=== PATIENT | male | born 1950 | race Caucasian/White ===

== ENCOUNTER 2016-05-13 14:11 | Inpatient (IN) | payer OTHER ==
[~2016-05-13] VITALS: Ht 172.7 cm; Wt 119.8 kg
--- NOTE | 2016-05-13 14:16 | ERA ---
ER Documentation Chief Complaint Date/Time DATE: 05/13/16 TIME: 14:16 Chief Complaint Left-sided weakness HPI The patient is 65-year-old male, presenting to the ER because of acute left- sided weakness happened about 30 minutes prior to arrival. He is unable to provide any history, the history is obtained from the engraver and later the family. He has not been sick in the last couple days. He has history of high blood pressure and asthma, denies any previous surgery, he does not smoke Past medical history: Hypertension, asthma Past surgical history: None ROS All systems reviewed and are negative except as per history of present illness. Medications Home Meds Reported Medications Budesonide-Formoterol Fumarate* (Symbicort*) 160-4.5 Hfa.aer.ad, 2 PUFF INHALATION BID, #1 EACH 05/13/16 Hydrochlorothiazide* (Hydrochlorothiazide*) Unknown Strength Tab, MG PO DAILY, # 30 TAB 05/13/16 Valsartan-Hydrochlorothiazide (Valsartan-HCTZ) 320-25 Mg Tablet, 1 TAB PO DAILY , #30 TAB 05/13/16 Albuterol Sulfate* (Albuterol Sulfate* Neb) 0.083%-3 Ml Neb, 2.5 MG NEB Q3H Y for WHEEZING AND SOB, #30 VIAL 05/13/16 Allergies Allergies: Coded Allergies: No Known Allergy (Unverified , 05/13/16) Physical Exam Vitals Vital Signs Date Time Temp Pulse Resp B/P Pulse Ox O2 Delivery O2 Flow Rate FiO2 05/13/16 16:48 84 18 160/97 99 05/13/16 16:33 79 18 159/99 99 05/13/16 16:18 72 20 145/91 100 05/13/16 16:03 80 24 150/85 100 05/13/16 15:48 81 24 158/90 100 05/13/16 15:33 81 24 181/103 100 05/13/16 15:18 83 24 191/113 100 05/13/16 15:03 77 24 160/124 100 05/13/16 14:57 98.4 84 24 191/113 100 Nasal Cannula 2.0 05/13/16 14:42 98.4 77 24 160/124 98 Nasal Cannula 05/13/16 14:38 15.0 100 05/13/16 14:37 97.8 82 24 150/132 98 05/13/16 14:37 Nasal Cannula 15 Physical Exam Const: No acute distress. Head: Atraumatic. Eyes: Normal Conjunctiva. ENT: Normal External Ears, Nose and Mouth. Neck: Full range of motion. No meningismus. Resp: Clear to auscultation bilaterally. Cardio: Regular rate and rhythm, no murmurs. Abd: Soft, non distended, normal bowel sounds, non tender. Skin: No petechiae or rashes. Back: No midline or flank tenderness. Ext: No cyanosis, or edema. Neur: Left upper and lower extremity 0/5, right upper and right lower extremity 5/5 Psych: Unable to obtain due to his condition Result Diagram: 05/13/16 1415 05/13/16 1415 Results 24 hrs Laboratory Tests Test 05/13/16 14:15 Activated Partial Thromboplast Time 24.9Sec Anion Gap 19 Basophils # 0.010^3/ul Basophils % 0.3% Blood Urea Nitrogen 15mg/dl Calcium Level 9.2mg/dl Carbon Dioxide Level 26mmol/L Chloride Level 105mmol/L Creatinine 0.87mg/dl Eosinophils # 0.210^3/ul Eosinophils % 2.3% Glucose Level 123mg/dl Hematocrit 40.4% Hemoglobin 13.6g/dl Hemoglobin A1c 5.8% INR International Normalized Ratio 0.93 Lymphocytes # 3.410^3/ul Lymphocytes % 32.5% Mean Corpuscular Hemoglobin 31.1pg Mean Corpuscular Hemoglobin Concent 33.6g/dl Mean Corpuscular Volume 92.4fl Mean Platelet Volume 7.9fl Monocytes # 0.810^3/ul Monocytes % 7.9% Neutrophils # 5.910^3/ul Neutrophils % 57.0% Nucleated Red Blood Cells # 0.010^3/ul Nucleated Red Blood Cells % 0.0/100WBC Platelet Count 30654^3/UL Potassium Level 3.5mmol/L Prothrombin Time 12.5Sec Prothrombin Time Ratio 1.0 Red Blood Count 4.3710^6/ul Red Cell Distribution Width 14.2% Sodium Level 146mmol/L Troponin I 0.052ng/ml White Blood Count 10.310^3/ul Current Medications Medications (Trade) Dose Ordered Sig/Mono Route PRN Reason Start Time Stop Time Status Last Admin Dose Admin Alteplase, Recombinant 8.2 mg 8.2 mg BOLUS OVER 1 MIN ONCE IV* 05/13/16 15:00 05/13/16 15:01 DC 05/13/16 15:03 Nicardipine HCl 200 ml @ 50 mls/hr TITRATE IV 05/13/16 15:30 05/13/16 15:54 Nicardipine HCl/ Dextrose (Cardene Iv/D5W) 250 ml @ 50 mls/hr PER PROTOCOL IV 05/13/16 17:00 Atorvastatin Calcium (Lipitor) 40 mg QHS PO 05/14/16 21:00 Acetaminophen (Tylenol Tab) 650 mg Q4H PRN PO Temp greater than 99.6F 05/13/16 16:30 Docusate Sodium (Colace) 100 mg BID PO 05/13/16 21:00 Ondansetron HCl (Zofran Inj) 4 mg Q6H PRN IV NAUSEA AND/OR VOMITING 05/13/16 16:30 Acetaminophen (Tylenol Tab) 650 mg Q6H PRN PO PAIN LEVEL 1-3 OR FEVER 05/13/16 16:30 Docusate Sodium (Colace) 100 mg Q12H PRN PO CONSTIPATION 05/13/16 16:30 Magnesium Hydroxide (Milk Of Mag) 30 ml DAILY PRN PO CONSTIPATION 05/13/16 16:30 Bisacodyl (Dulcolax Supp) 10 mg DAILY PRN OK CONSTIPATION 05/13/16 16:30 Famotidine (Pepcid Iv) 20 mg Q12 IV 05/13/16 21:00 Albuterol (Proventil 0.083% (Neb)) 2.5 mg Q4H RESP THERAPY PRN NEB WHEEZING AND SOB 05/13/16 17:00 Salmeterol Xinafoate/ Fluticasone (Advair 250/50 Diskus) 1 inh BID INH 05/13/16 21:00 Procedures/MDM EKG: Read by emergency physician Rate/Rhythm: Normal Sinus Rhythm 78 beats per min QRS, ST, T-waves: No ST elevation, no T wave inversion, PAC, LAE Impression: Abnormal EKG [place] [id number] Radiology Main Line: [phone] DIAGNOSTIC IMAGING REPORT Patient: MARGRETSMITA EVANGELISTAPaulino : 1950 Age: 65 Sex: M MR #: [id number] DOS: 05/13/16 1414 Ordering MD: ROBERT DIAZ MD Location: E/R Room/Bed: PROCEDURE: XR Chest. CLINICAL INDICATION: Stroke TECHNIQUE: Single AP portable chest COMPARISON: None. FINDINGS: And cardiomegaly. Mild vascular congestion. No pleural effusion or focal consolidation. Catheter tubing overlies the epigastric region. The lungs are clear without pleural effusion or focal consolidation. No pneumothorax. The osseous structures and soft tissues are unremarkable. IMPRESSION: 1. Cardiomegaly. Mild vascular congestion. RPTAT:AAJJ Kenneth Coleman Physician Date Time Electronically viewed and signed by Kenneth Coleman Physician on 05/13/2016 15:12 KIMMY/ CC: ROBERT DIAZ MD [place] [id number] Radiology Main Line: [phone] DIAGNOSTIC IMAGING REPORT Patient: LEVI MILLIGAN : 1950 Age: 65 Sex: M MR #: [id number] DOS: 05/13/16 1414 Ordering MD: ROBERT DIAZ MD Location: E/R Room/Bed: PROCEDURE: CT brain without contrast CLINICAL INDICATION: Code stroke, left-sided weakness TECHNIQUE: CT of the brain without contrast performed on a multidetector CT scanner, with multiplanar reformats. One or more of the following dose reduction techniques were used: Automated exposure control, adjustment in mA and / or kV according to patient size, use of iterative reconstructive technique. CTDIvol = 39 mGy; DLP = 720 mGy-cm. COMPARISON: None available FINDINGS: There is subtle hyperdensity at the proximal right middle cerebral artery in the region of the distal M1 segment/bifurcation raising the possibility of thrombus. No acute intracranial hemorrhage is identified. No extra-axial fluid collection is seen. There is no mass effect. No midline shift is identified. Ventricles and sulci are mildly enlarged compatible with volume loss. There are mild areas of hypodensity in the periventricular - deep white matter which are nonspecific but suggestive of chronic small vessel ischemic changes. Moraes-white differentiation is grossly preserved. Osseous structures are unremarkable. Mastoid air cells and imaged paranasal sinuses grossly clear. IMPRESSION: 1. Subtle hyperdensity at the proximal right MCA at the M1/bifurcation region raising possibility of thrombus. Further assessed with CT angiography is recommended. Also, follow-up MRI of the brain is advised. 2. No acute intracranial hemorrhage. 3. Mild volume loss, and chronic small vessel ischemic changes. Results called to Dr. DIAZ at 02:32 p.m., 05/13/2016. RPTAT: VV .Kip Schmidt MD, Date Time Electronically viewed and signed by .Kip Schmidt MD, on 05/13/2016 14:37 .O/ CC: ROBERT DIAZ MD Consultation: I discussed the patient with the on-call stroke neurologist Dr Chen who recommended TPA after evaluation. TPA was given immediately MEDICAL MAKING DECISION: The patient is a 65-year-old male, presenting with acute stroke with left hemiparalysis, status post TPA. He is improving in the ER. I have ordered a CTA of the brain and neck and the admitting physician Dr López would follow the result Critical Care: Time: 35 minutes excluding all billable procedures. Treatments/Evaluations: Close monitoring and treatment of unstable vital signs, cardiorespiratory, and neurologic status, while maintaining tight balance of fluid, respiratory, and cardiac interventions. Departure Diagnosis: Primary Impression: Acute thrombotic stroke Condition: Stable Comments I discussed the findings with the patient. I discussed the patient with his physician Dr. López at 3:45 pm who was made aware of the lab, the treatment, the patient condition, the pending CTA. She evaluated the patient in the ER. The patient is admitted to ICU. ROBERT DIAZ MD May 13, 2016 14:16
[2016-05-13 14:24] LABS: BASOPHILS % 0.3 % (0.0-2.0); EOSINOPHILS # 0.2 10^3/ul (0.0-0.5); EOSINOPHILS % 2.3 % (0.0-7.0); HEMATOCRIT 40.4 % (42.0-52.0); HEMOGLOBIN 13.6 g/dl (14.0-18.0); LYMPHOCYTES # 3.4 10^3/ul (0.8-2.9); LYMPHOCYTES % 32.5 % (15.0-51.0); MEAN CORPUSCULAR HEMOGLOBIN 31.1 pg (29.0-33.0); MEAN CORPUSCULAR HGB CONC 33.6 g/dl (32.0-37.0); MEAN CORPUSCULAR VOLUME 92.4 fl (82.0-101.0); MEAN PLATELET VOLUME 7.9 fl (7.4-10.4); MONOCYTE # 0.8 10^3/ul (0.3-0.9); MONOCYTES % 7.9 % (0.0-11.0); NEUTROPHIL # 5.9 10^3/ul (1.6-7.5); PLATELET COUNT 287 10^3/UL (140-440); RED BLOOD COUNT 4.37 10^6/ul (4.70-6.10); RED CELL DISTRIBUTION WIDTH 14.2 % (11.5-14.5); UNCORRECTED WBC 10.3 10^3/ul (4.8-10.8); WHITE BLOOD COUNT 10.3 10^3/ul (4.8-10.8)
[2016-05-13 14:26] LABS: CONDITION 1
[2016-05-13 14:34] LABS: POTASSIUM 3.5 mmol/L (3.5-5.1)
[2016-05-13 14:36] LABS: CREATININE 0.87 mg/dl (0.61-1.24)
[2016-05-13 14:37] VITALS: Ht 172.7 cm; Wt 119.8 kg
[2016-05-13 14:37] LABS: CALCIUM 9.2 mg/dl (8.4-10.2)
--- NOTE | 2016-05-13 14:37 | RADRPT ---
PROCEDURE: CT brain without contrast CLINICAL INDICATION: Code stroke, left-sided weakness TECHNIQUE: CT of the brain without contrast performed on a multidetector CT scanner, with multiplan ar reformats. One or more of the following dose reduction techniques were used: Automated exposure control, adjustment in mA and / or kV according to patient size, use of iterative reconstructive víctor hnique. CTDIvol = 39 mGy; DLP = 720 mGy-cm. COMPARISON: None available FINDINGS: There is subtle hyperdensity at the proximal right middle cerebral artery in the region of the dista l M1 segment/bifurcation raising the possibility of thrombus. No acute intracranial hemorrhage is i dentified. No extra-axial fluid collection is seen. There is no mass effect. No midline shift is identified. Ventricles and sulci are mildly enlarged compatible with volume loss. There are mild areas of hypodensity in the periventricular - deep white matter which are nonspecific but suggestive of chronic small vessel ischemic changes. Moraes-white differentiation is grossly pre served. Osseous structures are unremarkable. Mastoid air cells and imaged paranasal sinuses grossly clear. IMPRESSION: 1. Subtle hyperdensity at the proximal right MCA at the M1/bifurcation region raising possibility o f thrombus. Further assessed with CT angiography is recommended. Also, follow-up MRI of the brain is advised. 2. No acute intracranial hemorrhage. 3. Mild volume loss, and chronic small vessel ischemic changes. Results called to Dr. DIAZ at 02:32 p.m., 05/13/2016. RPTAT: VV .Kip Schmidt MD, MD Date Time Electronically viewed and signed by .Kip Schmidt MD, MD on 05/13/2016 14:37 .O/
[2016-05-13 14:43] LABS: INR 0.93; PROTIME 12.5 Sec (12.2-14.2)
[2016-05-13 14:44] LABS: PARTIAL THROMBOPLASTIN TIME 24.9 Sec (25.0-35.0)
[2016-05-13 14:48] LABS: TROPONIN-I 0.052 ng/ml (0.00-0.12)
[2016-05-13] MEDS ORDERED: ALTEPLASE (tPA) 1 MG/ML BOLUS SYG IV* ONE (15:00)
--- NOTE | 2016-05-13 15:13 | RADRPT ---
PROCEDURE: XR Chest. CLINICAL INDICATION: Stroke TECHNIQUE: Single AP portable chest COMPARISON: None. FINDINGS: And cardiomegaly. Mild vascular congestion. No pleural effusion or focal consolidation. Catheter tubing overlies the epigastric region. The lungs are clear without pleural effusion or focal consol idation. No pneumothorax. The osseous structures and soft tissues are unremarkable. IMPRESSION: 1. Cardiomegaly. Mild vascular congestion. RPTAT:AAJJ Physician Saulo Date Time Electronically viewed and signed by Physician Saulo on 05/13/2016 15:12 KIMMY/
[2016-05-13] MEDS ORDERED: niCARdipine-D5W 0.1MG/ML DRIP 200 ML IV SCH (15:30)
[2016-05-13] MEDS ORDERED: ALBU2.5V3 NEB (15:51)
[2016-05-13] MEDS ORDERED: HYD25 PO (16:01)
[2016-05-13] MEDS ORDERED: VALS1TAB82 PO (16:01)
[2016-05-13] MEDS ORDERED: BUDE6HFA INHALATION (16:02)
[2016-05-13] MEDS ORDERED: DOCUSATE SODIUM 100 MG CAP PO PRN (16:30)
[2016-05-13] MEDS ORDERED: MAGNESIUM HYDROXIDE 30ML CUP PO PRN (16:30)
[2016-05-13] MEDS ORDERED: ONDANSETRON 4 MG INJ IV PRN (16:30)
[2016-05-13] MEDS ORDERED: ALBUTEROL 0.083% (NEB) 2.5 MG/3 ML AMP NEB PRN (17:00)
--- NOTE | 2016-05-13 17:47 | HP ---
DATE OF ADMISSION: 05/13/2016 PRIMARY CARE PHYSICIAN: Unknown. CHIEF COMPLAINT ON ADMISSION: Altered level of consciousness. HISTORY OF PRESENT ILLNESS: This is a 65-year-old male with reported history of hypertension, prima rily Turkish speaking, who was brought into the emergency department with reported severe lethargy, altered level of consciousness and according to the ER staff had deep left hemiparesis. Upon arriv al, the patient was extremely lethargic. He was aphasic with severe left hemiparesis. His symptoms started an hour and a half prior to presentation. Therefore, the patient was a stroke code and a T PA candidate. He did get TPA. Post TPA, according to the staff again who was able to compare, the patient is more awake even if still significantly lethargic. He is able to move a little bit his le ft side but still with deep hemiparesis. He is now able to utter some words. He does have a right facial droop, but it seems to be improved. He seems to be still having difficulty waking up, linh r. He speaks primarily Turkish. Family is at bedside. According to the family, the only reported medical history is hypertension. They deny any previous history of cerebrovascular accident or cor onary artery disease. He was told he had a slightly elevated cholesterol but did not take any medic ations. No history of diabetes mellitus. ALLERGIES: NO KNOWN ALLERGIES. PAST MEDICAL HISTORY: Hypertension, asthma. PAST SURGICAL HISTORY: None. SOCIAL HISTORY: The patient lives with family. He does not smoke. He drinks occasionally, maybe 1 or 2 drinks a week. REVIEW OF SYSTEMS: Unable to obtain from patient. OUTPATIENT MEDICATIONS: 1. Valsartan/hydrochlorothiazide 320/25 one tablet p.o. daily. 2. Symbicort 2 puffs inhaled twice a day. 3. Albuterol nebulizers q.3 hours p.r.n. PHYSICAL EXAMINATION: VITAL SIGNS: Temperature is 98.4, heart rate of 87, respiratory rate 24, blood pressure 158/90. Th e patient is saturating 100% on 2 L nasal cannula. GENERAL: He is significantly lethargic but arousable. He does not seem to be oriented, having diff iculty following commands but spontaneously moving his right side and his head from one side to anot her. Even in Turkish, he seems to be having difficulty following commands. He is otherwise not in acute distress. HEENT: Pupils are equally round and reactive to light. Extraocular muscles are intact. Anicteric sclerae. NECK: No JVD, no thyromegaly noted. CRANIAL NERVES: Exam is very limited. Again, the patient is not very cooperative. HEART: Regular rate and rhythm. No murmur, rubs or gallops. LUNGS: Clear to auscultation bilaterally. ABDOMEN: Soft, nontender, nondistended. Bowel sounds are present. EXTREMITIES: No edema, clubbing or cyanosis. NEUROLOGIC: Again, the patient does have left hemiparesis which is fairly deep. He is having mild to moderate expressive aphasia and possibly receptive aphasia also, and he does have a right facial droop. LABORATORY DATA: White blood cell count 10.3, hemoglobin 13.6, hematocrit 40.7, platelet count of 2 87. Chemistry with a sodium of 146, potassium 3.5, chloride 105, bicarbonate 26, BUN 15, creatinine 0.87, glucose of 123. Hemoglobin A1c 5.8. Calcium 9.2. Troponin 0.052. INR 0.93, PT 12.5, PTT 2 4.9. ELECTROCARDIOGRAM: Normal sinus rhythm. No acute ST or T-wave abnormalities. RADIOLOGICAL DATA: 1. Chest x-ray shows cardiomegaly with mild vascular congestion. 2. CAT scan of the brain without contrast shows subtle hyperdensity in the left proximal right MCA at the M1 bifurcation, raising possibility of a thrombus. No acute intracranial hemorrhage. Mild v olume loss. ASSESSMENT AND PLAN: This is a 65-year-old male with: 1. Acute cerebrovascular accident with severe left hemiparesis, also aphasia. Still concern regard ing his airway due to his lethargy. Therefore, he will be admitted to the ICU post TPA, q.1 neuro c hecks, close monitoring of his respiratory status and airway. His systolic blood pressure upon arri marcos was in the 180s and currently down to 150s. Permissive hypertension of some sort for now. . ____ from Neurology has been consulted. CT angiogram of the head and neck and MRI of the brain are pending. A 2D echocardiogram also has been ordered. Hemoglobin A1c is within normal. Fasting lipi d panel is ordered for the morning. He will be started on statin therapy. He is currently n.p.o. u ntil speech evaluation. 2. Hypertension. For now, will allow for permissive hypertension, holding all oral medications. 3. Asthma. Resume Symbicort and nebulizer treatments as needed. 4. Prophylaxis. For now, he is status post TPA. Will have him on Pepcid for GI prophylaxis. DISPOSITION: Admit to ICU with very close monitoring of both neurological status and respiratory st atus. Neurology will be following up CT angiogram head and neck and MRI brain pending. Dictated By: NICO GRIER/ANGELIQUE Conf#: [id number] DID#: [id number]
[2016-05-13] MEDS ORDERED: IOHEXOL 100 ML ONE (18:24)
[2016-05-13] MEDS ORDERED: SOD CHLORIDE 0.9% 100 ML ONE (18:24)
[2016-05-13] MEDS: LORAZEPAM 2 MG INJ IV ONE ×2 (19:10→22:04)
--- NOTE | 2016-05-13 20:29 | RADRPT ---
PROCEDURE: MR Brain without contrast. CLINICAL INDICATION: CVA. TECHNIQUE: An MRI of the brain was performed on a 1.5 candie scanner utilizing the following sequen garland: Sagittal T1 weighted, axial T2 weighted, axial FLAIR, coronal GRE, and axial diffusion weighted with ADC mapping. COMPARISON: None FINDINGS: Restricted diffusion involving the right castañeda radiata, basal ganglia, and external capsule compati ble with acute/early subacute ischemic infarction. Evaluation of diffusion weighted sequence is thomas ited due to marked patient motion and image degradation. There is no evidence of intracranial hemorrhage, mass effect, or midline shift. No extra-axial flu id collections are seen. No hypointense signal abnormalities are seen on the GRE images to suggest the presence of blood degr adation products. The ventricles and subarachnoid spaces are prominent compatible with age-related atrophy. The seg[place] white differentiation is grossly well preserved. Small left maxillary sinus mucous retention cyst o r polyp. The posterior fossa contents, brainstem, seventh - eighth cranial nerve complexes, pituitary axis, o rbits, paranasal sinuses, and mastoid air cells are unremarkable. Normal flow voids are visible in the proximal intracranial arteries and dural sinuses, indicating pa tency. IMPRESSION: 1. Acute/early subacute ischemic infarction involving the right basal ganglia and castañeda radiata. D etailed evaluation is limited due to extensive configuration secondary to patient motion on all sequ ences. 2. No intracranial hemorrhage, mass effect, or shift. RPTAT:AAJJ Physician Saulo Date Time Electronically viewed and signed by Physician Saulo on 05/13/2016 20:28 KIMMY/
--- NOTE | 2016-05-13 20:42 | RADRPT ---
PROCEDURE: CTA Neck. CLINICAL INDICATION: CVA TECHNIQUE: The study was performed utilizing a multidetector CT scanner. Direct spiral 1 mm axial sections were obtained through the neck with the use of 100ml Omnipaque 350 intravenous contrast m aterial. Coronal and sagittal as well as maximal intensity projection reformations were obtained.CT DI: 19.13 mGy and DLP: 781.39 mGy.cm.One or more of the following dose reduction techniques were uti lized: Automated exposure control, adjustment of the mA and/or kV according to patient size, use of iterative reconstruction technique. COMPARISON: No prior studies are available for comparison. FINDINGS: Aortic arch: The aortic arch is normal in caliber. Atherosclerotic calcification of the aortic arch. Normal appea ute of the origin of the great vessels. Common carotid arteries: Mild tortuosity of the proximal common carotid arteries bilaterally. Internal carotid arteries: ROGELIO/ECA: Normal appearance of the internal carotid artery bulb. The distal internal carotid artery is patent and normal in caliber. Severe tortuosity of the mid extracranial internal carotid artery with sigmo id configuration No evidence of hemodynamically significant stenosis. External carotid artery and i ts branches are normal patent and normal in caliber. LICA/ECA : Normal appearance of the internal carotid artery bulb. The distal internal carotid artery is patent and normal in caliber. No evidence of hemodynamically significant stenosis. Marked tortuosity of the mid extracranial internal carotid artery. There is medial retropharyngeal course of the proxima l right internal carotid artery and old. This deforms the posterior lateral aspect of the hypophary nx. This should be noted prior to any surgical procedure in this region. External carotid artery an d its branches are normal patent and normal in caliber. Vertebral arteries: The vertebral arteries are patent and normal in caliber with dominant right vertebral artery. IMPRESSION: No evidence of hemodynamically significant stenosis. Marked tortuosity of the internal carotid henok alexandre bilaterally left greater than right as described in detail above. RPTAT:AAJJ Physician Saulo Date Time Electronically viewed and signed by Physician Saulo on 05/13/2016 20:41 KIMMY/
--- NOTE | 2016-05-13 20:46 | STROKE ---
Date/Time of Note Date/Time of Note DATE: 05/13/16 TIME: 20:40 Patient Information General Patient location: emergency Arrival Date Age 65 Gender male Weight 90.91 kg Vital Signs Vital Signs Vital Signs Date Time Temp Pulse Resp B/P Pulse Ox O2 Delivery O2 Flow Rate FiO2 05/13/16 18:18 80 18 136/100 99 05/13/16 14:57 98.4 Nasal Cannula 2.0 05/13/16 14:38 100 Patient History Current Medications Allergies: Coded Allergies: No Known Allergy (Unverified , 05/13/16) Labs Hematology Labs Hematology Test 05/13/16 14:15 Basophils # 0.010^3/ul (0.0-0.1) Basophils % 0.3% (0.0-2.0) Eosinophils # 0.210^3/ul (0.0-0.5) Eosinophils % 2.3% (0.0-7.0) Hematocrit 40.4% (42.0-52.0) Hemoglobin 13.6g/dl (14.0-18.0) Lymphocytes # 3.410^3/ul (0.8-2.9) Lymphocytes % 32.5% (15.0-51.0) Mean Corpuscular Hemoglobin 31.1pg (29.0-33.0) Mean Corpuscular Hemoglobin Concent 33.6g/dl (32.0-37.0) Mean Corpuscular Volume 92.4fl (82.0-101.0) Mean Platelet Volume 7.9fl (7.4-10.4) Monocytes # 0.810^3/ul (0.3-0.9) Monocytes % 7.9% (0.0-11.0) Neutrophils # 5.910^3/ul (1.6-7.5) Neutrophils % 57.0% (39.0-77.0) Nucleated Red Blood Cells # 0.010^3/ul (0.0-0.0) Nucleated Red Blood Cells % 0.0/100WBC (0.0-0.0) Platelet Count 94171^3/UL (140-440) Red Blood Count 4.3710^6/ul (4.70-6.10) Red Cell Distribution Width 14.2% (11.5-14.5) White Blood Count 10.310^3/ul (4.8-10.8) Chemistry Labs Chemistry Test 05/13/16 14:15 Anion Gap 19 (8-16) Blood Urea Nitrogen 15mg/dl (7-20) Calcium Level 9.2mg/dl (8.4-10.2) Carbon Dioxide Level 26mmol/L (21-31) Chloride Level 105mmol/L (97-110) Creatinine 0.87mg/dl (0.61-1.24) Glucose Level 123mg/dl (70-220) Hemoglobin A1c 5.8% (0-5.9) Potassium Level 3.5mmol/L (3.5-5.1) Sodium Level 146mmol/L (135-144) Troponin I 0.052ng/ml (0.00-0.12) Coagulation Labs: Coagulation Test 05/13/16 14:15 Activated Partial Thromboplast Time 24.9Sec (25.0-35.0) INR International Normalized Ratio 0.93 Prothrombin Time 12.5Sec (12.2-14.2) Prothrombin Time Ratio 1.0 History & Physical Patient History Notes Pt Hx Reviewed History of Present Illness 65yo M presents with acute onset left sided weakness since 1:30pm. Review of Systems All Other Systems: Reviewed and Negative (unable to obtain due to patient's clinical condition) NIH Stroke Scale NIH Stroke Scale 1A - Level of Conciousness: 2 - Not Alert w [id number] LOC Questions: 2 - Answers no [id number] - LOC Commands: 2 - Performs neither task2 - Best Gaze: 1 - Partial Gaze palsy3 - Visual: 2 - Complete Hemianopia4 - Facial Palsy: 2 - Complete [id number] - Motor Arm - Left: 4 - No ribbsfjp6H - Motor Arm - Right: 2 - Some effort to xstsvcs0P - Motor Leg - Left: 4 - No udvjaltv1C - Motor Leg - Right: 3 - No effort to gravity7 - Limb Ataxia: 0 - Absent8 - Sensory: 0 - Normal9 - Best Language: 0 - No aphasia or normalDysarthria: 0 - NormalTotal Score: 24 Date/Time Recorded DATE: 05/13/16 TIME: 20:40 Submitted By Beth Jeffers t-PA Imaging Review Imaging Reviewed: Yes Date/Time Imaging Reviewed DATE: 05/13/16 TIME: 20:40 Imaging Findings No acute changes t-PA Administration Recommendation: Yes Weight 90.91 kg Recommedation submitted by Beth Jeffers Recommendations Impression Diagnosis ischemic stroke of the right middle cerebral artery Recommendation 65yo M presents with acute onset left sided weakness. Neurological exam is notable for left face arm and leg weakness, left homonymous hemianopsia, and patient not answering questions. I believe the patient has an acute ischemic stroke of the right middle cerebral artery. I reviewed the risks and benefits of IV TPA in detail with the patient's son and he is agreeable to my recommendation for IV TPA. I also recommended a stat CTA of the head and neck to determine if the patient is a neurointerventional candidate. I recommend further workup to include MRI Brain without gadolinium and transthoracic echocardiogram. I recommend post-TPA orders be followed. BETH JEFFERS May 13, 2016 20:45
--- NOTE | 2016-05-13 20:50 | RADRPT ---
PROCEDURE: CTA Brain. CLINICAL INDICATION: CVA TECHNIQUE: The study was performed utilizing a multidetector CT scanner. Direct spiral 0.65 mm axi al sections were obtained through the intracranial vasculature with the use of 100 cc of Onipaque 35 0 nonionic intravenous contrast material. Coronal and sagittal MPRs as well as maximal intensity pr ojection reformations were obtained. 3D images were also made. The CTDIvol is 19.13 mGy and the DLP is 781.39 mGycm. COMPARISON: No prior studies are available for comparison. FINDINGS: The internal carotid arteries are patent and normal in caliber. There is occlusion of the right mid M1 segment of the middle cerebral artery there is nonvisualizati on of the temporal, and opercular branches. The anterior cerebral arteries, anterior communicating artery, and left middle cerebral artery and its branches are patent. The basilar artery is patent with dominant right vertebral artery flow left vertebral artery is mild ly hypoplastic but patent. origin right posterior cerebral artery The vertebral arteries, ba silar artery, superior cerebellar arteries, and posterior cerebral arteries are all normal in appear ance. No aneurysm is identified. No vascular malformation is seen. IMPRESSION: 1. Occlusion of the mid M1 segment of the right middle cerebral artery with nonvisualization of rig ht remaining distal MCA branches compatible with a right MCA arterial occlusion and infarct. 2. The remaining vessels of the [place] of [place] are patent and normal in caliber. RPTAT:AAJJ Physician Saulo Date Time Electronically viewed and signed by Physician Saulo on 05/13/2016 20:50 KIMMY/
[2016-05-13 20:53] VITALS: TEMP 98
[2016-05-13] MEDS: DOCUSATE SODIUM 100 MG CAP PO SCH (21:00)
[2016-05-13] MEDS: SALMETEROL/FLUTICASONE 250/50 INHA INH SCH (21:00)
[2016-05-13] MEDS: FAMOTIDINE 20 MG INJ IV SCH (21:00)
[2016-05-13 23:15] VITALS: BP 122/80; PULSE 96; RESP 23
[2016-05-13 23:18] VITALS: PULSE 83
[2016-05-13] MEDS ORDERED: niCARdipine-D5W 0.1MG/ML DRIP 200 ML ONE (23:22)
[2016-05-13 23:30] VITALS: PULSE 102; RESP 22
[2016-05-13 23:45] VITALS: PULSE 82; RESP 19
[2016-05-14] VITALS (94 sets, daily range): BP systolic 94–170; BP diastolic 56–107; PULSE 71–157; RESP 6–39
[2016-05-14 05:23] LABS: BASOPHILS % 0.2 % (0.0-2.0); EOSINOPHILS % 0.3 % (0.0-7.0); HEMATOCRIT 41.5 % (42.0-52.0); HEMOGLOBIN 13.8 g/dl (14.0-18.0); LYMPHOCYTES # 1.3 10^3/ul (0.8-2.9); LYMPHOCYTES % 11.6 % (15.0-51.0); MEAN CORPUSCULAR HEMOGLOBIN 31.1 pg (29.0-33.0); MEAN CORPUSCULAR HGB CONC 33.3 g/dl (32.0-37.0); MEAN CORPUSCULAR VOLUME 93.2 fl (82.0-101.0); MEAN PLATELET VOLUME 7.7 fl (7.4-10.4); MONOCYTE # 0.6 10^3/ul (0.3-0.9); MONOCYTES % 5.9 % (0.0-11.0); NEUTROPHIL # 8.9 10^3/ul (1.6-7.5); PLATELET COUNT 264 10^3/UL (140-440); RED BLOOD COUNT 4.45 10^6/ul (4.70-6.10); RED CELL DISTRIBUTION WIDTH 14.3 % (11.5-14.5); UNCORRECTED WBC 10.9 10^3/ul (4.8-10.8); WHITE BLOOD COUNT 10.9 10^3/ul (4.8-10.8)
[2016-05-14 05:26] LABS: CONDITION 1
[2016-05-14 05:53] LABS: POTASSIUM 3.9 mmol/L (3.5-5.1)
[2016-05-14 05:55] LABS: CREATININE 0.64 mg/dl (0.61-1.24); PHOSPHORUS 2.4 mg/dl (2.5-4.9)
[2016-05-14 05:56] LABS: CALCIUM 8.9 mg/dl (8.4-10.2); CHOL/HDL RATIO 5.3 RATIO; MAGNESIUM 1.8 mg/dl (1.7-2.5)
--- NOTE | 2016-05-14 07:57 | CONS ---
Date/Time of Note Date/Time of Note DATE: 05/14/16 TIME: 07:51 Assessment/Plan Assessment/Plan Additional Assessment/Plan Chest x-ray was reviewed from yesterday which is showing cardiomegaly and evidence of mild pulmonary edema. CT head and MRI of the brain findings are consistent with infarct involving right middle cerebral artery distribution. No bleed seen. Next Assessment recommendations; next 1. Patient admitted with acute CVA status post TPA. 2. History of hypertension. 3. History of asthma which is currently well controlled. 4. Patient exhibiting poor mental status. Continue current treatment for now patient may need another imaging of the brain preferably CT scan of head however I will defer that to the treating neurologist. I did have a detailed discussion the patient's family at bedside and answered all their questions. Consultation Date/Type/Reason Admit Date/Time May 13, 2016 at 16:42 Date of Consultation: May 14, 2016 Type of Consultation: Pulmonary/critical Reason for Consultation Patient admitted for acute CVA. Received TPA. Pulmonary critical care consultation obtained for evaluation of critical illness. History of present illness; patient is a 64-year-old [place] male who was brought into the emergency room yesterday with acute onset of left-sided weakness and slurred speech. Imaging workup was initiated including a CT of the head which was consistent with Right MCA CVA .Code stroke was called and the patient received TPA with some improvement in movement involving the left side of the body. Patient however continues to exhibit poor mental status and is still quite lethargic but able to move his left side spontaneously. Currently the patient follows minimal commands like eye opening on significant prompting. According to the patient's family, the symptoms happened acutely yesterday afternoon. There is no prior history of any CVA. Past medical history; next 1. Asthma 2. Hypertension 3. Nausea of any coronary artery, disease any surgeries. Medications; were reviewed. Allergies; none Social history; no stools alcohol tobacco or drug abuse. Family history; patient is , has 3 children. There is a history of hypertension in the family. 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 Review of systems; currently unable to be obtained. General examination; middle aged man, arousable but then dozes off to sleep. Speech is slurred. Social History Smoking Status: Unknown if ever smoked Exam/Review of Systems Vital Signs Vitals Vital Signs Date Time Temp Pulse Resp B/P Pulse Ox O2 Delivery O2 Flow Rate FiO2 05/14/16 06:15 85 17 145/87 96 Mechanical Ventilator 05/14/16 04:15 2.0 05/14/16 04:00 98.4 05/13/16 14:38 100 Intake and Output 05/13/16 05/13/16 05/14/16 15:00 23:00 07:00 Intake Total 450 ml Balance 450 ml Exam H EENT examination; supple neck, no JVD. No lymphadenopathy. Pupils are midsize and reactive to light. No thyromegaly. No lymphadenopathy. No neck bruits. Chest examination; clear to auscultation bilaterally. S1-S2 audible, no murmurs. Regular rhythm. Abdomen examination; soft, nondistended, no organomegaly. Umbilicus is inverted. There is no scrotal or penile edema. No scars visualized. Extremity examination; no peripheral edema. Pulses 2+ bilaterally. 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 Does not follow commands. Results Result Diagram: 05/14/16 0455 05/14/16 0455 Results 24 hrs Laboratory Tests Test 05/13/16 14:15 05/14/16 04:55 Activated Partial Thromboplast Time 24.9 L Anion Gap 19 H 16 Basophils # 0.0 0.0 Basophils % 0.3 0.2 Blood Urea Nitrogen 15 12 Calcium Level 9.2 8.9 Carbon Dioxide Level 26 27 Chloride Level 105 104 Creatinine 0.87 0.64 Eosinophils # 0.2 0.0 Eosinophils % 2.3 0.3 Glucose Level 123 138 Hematocrit 40.4 L 41.5 L Hemoglobin 13.6 L 13.8 L Hemoglobin A1c 5.8 INR International Normalized Ratio 0.93 Lymphocytes # 3.4 H 1.3 Lymphocytes % 32.5 11.6 L Mean Corpuscular Hemoglobin 31.1 31.1 Mean Corpuscular Hemoglobin Concent 33.6 33.3 Mean Corpuscular Volume 92.4 93.2 Mean Platelet Volume 7.9 7.7 Monocytes # 0.8 0.6 Monocytes % 7.9 5.9 Neutrophils # 5.9 8.9 H Neutrophils % 57.0 82.0 H Nucleated Red Blood Cells # 0.0 0.0 Nucleated Red Blood Cells % 0.0 0.0 Platelet Count 287 264 Potassium Level 3.5 3.9 Prothrombin Time 12.5 Prothrombin Time Ratio 1.0 Red Blood Count 4.37 L 4.45 L Red Cell Distribution Width 14.2 14.3 Sodium Level 146 H 143 Troponin I 0.052 White Blood Count 10.3 10.9 H Cholesterol Level 236 H Cholesterol/HDL Ratio 5.3 HDL Cholesterol 44 LDL Cholesterol, Calculated 172 Magnesium Level 1.8 Phosphorus Level 2.4 L Triglycerides Level 98 Medications Medications Current Medications Atorvastatin Calcium (Lipitor) 40 mg QHS PO ; Start 05/14/16 at 21:00 Acetaminophen (Tylenol Tab) 650 mg Q4H PRN PO Temp greater than 99.6F; Start at 16:30 Docusate Sodium (Colace) 100 mg BID PO ; Start 05/13/16 at 21:00 Ondansetron HCl (Zofran Inj) 4 mg Q6H PRN IV NAUSEA AND/OR VOMITING; Start at 16:30 Acetaminophen (Tylenol Tab) 650 mg Q6H PRN PO PAIN LEVEL 1-3 OR FEVER; Start at 16:30 Docusate Sodium (Colace) 100 mg Q12H PRN PO CONSTIPATION; Start 05/13/16 at 16: 30 Magnesium Hydroxide (Milk Of Mag) 30 ml DAILY PRN PO CONSTIPATION; Start at 16:30 Bisacodyl (Dulcolax Supp) 10 mg DAILY PRN [place] CONSTIPATION; Start 05/13/16 at 16 :30 Famotidine (Pepcid Iv) 20 mg Q12 IV ; Start 05/13/16 at 21:00 Salmeterol Xinafoate/ Fluticasone (Advair 250/50 Diskus) 1 inh BID INH ; Start 05/13/16 at 21:00 AKHIL WILSON May 14, 2016 07:57
--- NOTE | 2016-05-14 08:22 | PN ---
Date/Time of Note Date/Time of Note DATE: 05/14/16 TIME: 08:21 Assessment/Plan VTE Prophylaxis VTE Prophylaxis Intervention: SCD's Lines/Catheters IV Catheter Type (from [facility]): Peripheral IV Urinary Cath still in place: No Assessment/Plan Assessment/Plan 65-year-old male with: 1. 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 MRI brain confirming Right MCA territory CVA CTA head with occlusion of the mid M1 segment of the right middle cerebral artery with nonvisualization of right remaining distal MCA branches Protecting his airway well BP stable CTA neck wnl Start ASA when OK with Neurology, repeat CT head pending today Continue statin therapy. PT/OT/ST eval when ok with Neurology. 2. Hypertension. For now, will allow for permissive hypertension, holding all oral medications. 3. Asthma. Continue inhaler and nebulizers prn. Prophylaxis. S/p TPA. Will have him on Pepcid for GI prophylaxis. DISPOSITION: Monitor in ICU with very close monitoring of both neurological status and respiratory status. Neurology follow up pending, will f/u further recommendations. Subjective 24 Hr Interval Summary Free Text/Dictation Patient still lethargic but easily more awake and per family dysarthria improving, still with left hemiparesis and facial droop No arrhythmias overmight VSS and afebrile Exam/Review of Systems Vital Signs Vitals Vital Signs Date Time Temp Pulse Resp B/P Pulse Ox O2 Delivery O2 Flow Rate FiO2 05/14/16 06:15 85 17 145/87 96 Mechanical Ventilator 05/14/16 04:15 2.0 05/14/16 04:00 98.4 05/13/16 14:38 100 Intake and Output 05/13/16 05/13/16 05/14/16 15:00 23:00 07:00 Intake Total 450 ml Balance 450 ml Exam Constitutional: other (lethargic, arousable ) ENMT: other (right facial drrop ) Respiratory: clear to auscultation, normal air movement Cardiovascular: regular rate and rhythm Gastrointestinal: non-tender, soft Neurological: focal weakness (lef hemiparesis and right facial droop), lethargic Results Result Diagram: 05/14/16 0455 05/14/16 0455 Results 24 hrs Laboratory Tests Test 05/13/16 14:15 05/14/16 04:55 Activated Partial Thromboplast Time 24.9 L Anion Gap 19 H 16 Basophils # 0.0 0.0 Basophils % 0.3 0.2 Blood Urea Nitrogen 15 12 Calcium Level 9.2 8.9 Carbon Dioxide Level 26 27 Chloride Level 105 104 Creatinine 0.87 0.64 Eosinophils # 0.2 0.0 Eosinophils % 2.3 0.3 Glucose Level 123 138 Hematocrit 40.4 L 41.5 L Hemoglobin 13.6 L 13.8 L Hemoglobin A1c 5.8 5.7 INR International Normalized Ratio 0.93 Lymphocytes # 3.4 H 1.3 Lymphocytes % 32.5 11.6 L Mean Corpuscular Hemoglobin 31.1 31.1 Mean Corpuscular Hemoglobin Concent 33.6 33.3 Mean Corpuscular Volume 92.4 93.2 Mean Platelet Volume 7.9 7.7 Monocytes # 0.8 0.6 Monocytes % 7.9 5.9 Neutrophils # 5.9 8.9 H Neutrophils % 57.0 82.0 H Nucleated Red Blood Cells # 0.0 0.0 Nucleated Red Blood Cells % 0.0 0.0 Platelet Count 287 264 Potassium Level 3.5 3.9 Prothrombin Time 12.5 Prothrombin Time Ratio 1.0 Red Blood Count 4.37 L 4.45 L Red Cell Distribution Width 14.2 14.3 Sodium Level 146 H 143 Troponin I 0.052 White Blood Count 10.3 10.9 H Cholesterol Level 236 H Cholesterol/HDL Ratio 5.3 HDL Cholesterol 44 LDL Cholesterol, Calculated 172 Magnesium Level 1.8 Phosphorus Level 2.4 L Triglycerides Level 98 Medications Medications Current Medications Atorvastatin Calcium (Lipitor) 40 mg QHS PO ; Start 05/14/16 at 21:00 Acetaminophen (Tylenol Tab) 650 mg Q4H PRN PO Temp greater than 99.6F; Start at 16:30 Docusate Sodium (Colace) 100 mg BID PO ; Start 05/13/16 at 21:00 Ondansetron HCl (Zofran Inj) 4 mg Q6H PRN IV NAUSEA AND/OR VOMITING; Start at 16:30 Acetaminophen (Tylenol Tab) 650 mg Q6H PRN PO PAIN LEVEL 1-3 OR FEVER; Start at 16:30 Docusate Sodium (Colace) 100 mg Q12H PRN PO CONSTIPATION; Start 05/13/16 at 16: 30 Magnesium Hydroxide (Milk Of Mag) 30 ml DAILY PRN PO CONSTIPATION; Start at 16:30 Bisacodyl (Dulcolax Supp) 10 mg DAILY PRN [place] CONSTIPATION; Start 05/13/16 at 16 :30 Famotidine (Pepcid Iv) 20 mg Q12 IV ; Start 05/13/16 at 21:00 Salmeterol Xinafoate/ Fluticasone (Advair 250/50 Diskus) 1 inh BID INH ; Start 05/13/16 at 21:00 Procedures Procedures PROCEDURE: MR Brain without contrast. CLINICAL INDICATION: CVA. TECHNIQUE: An MRI of the brain was performed on a 1.5 candie scanner utilizing the following sequences: Sagittal T1 weighted, axial T2 weighted, axial FLAIR, coronal GRE, and axial diffusion weighted with ADC mapping. COMPARISON: None FINDINGS: Restricted diffusion involving the right castañeda radiata, basal ganglia, and external capsule compatible with acute/early subacute ischemic infarction. Evaluation of diffusion weighted sequence is limited due to marked patient motion and image degradation. There is no evidence of intracranial hemorrhage, mass effect, or midline shift. No extra-axial fluid collections are seen. No hypointense signal abnormalities are seen on the GRE images to suggest the presence of blood degradation products. The ventricles and subarachnoid spaces are prominent compatible with age- related atrophy. The [place] white differentiation is grossly well preserved. Small left maxillary sinus mucous retention cyst or polyp. The posterior fossa contents, brainstem, seventh - eighth cranial nerve complexes, pituitary axis, orbits, paranasal sinuses, and mastoid air cells are unremarkable. Normal flow voids are visible in the proximal intracranial arteries and dural sinuses, indicating patency. IMPRESSION: 1. Acute/early subacute ischemic infarction involving the right basal ganglia and castañeda radiata. Detailed evaluation is limited due to extensive configuration secondary to patient motion on all sequences. 2. No intracranial hemorrhage, mass effect, or shift. PROCEDURE: CTA Brain. CLINICAL INDICATION: CVA TECHNIQUE: The study was performed utilizing a multidetector CT scanner. Direct spiral 0.65 mm axial sections were obtained through the intracranial vasculature with the use of 100 cc of Onipaque 350 nonionic intravenous contrast material. Coronal and sagittal MPRs as well as maximal intensity projection reformations were obtained. 3D images were also made. The CTDIvol is 19.13 mGy and the DLP is 781.39 mGycm. COMPARISON: No prior studies are available for comparison. FINDINGS: The internal carotid arteries are patent and normal in caliber. There is occlusion of the right mid M1 segment of the middle cerebral artery there is nonvisualization of the temporal, and opercular branches. The anterior cerebral arteries, anterior communicating artery, and left middle cerebral artery and its branches are patent. The basilar artery is patent with dominant right vertebral artery flow left vertebral artery is mildly hypoplastic but patent. origin right posterior cerebral artery The vertebral arteries, basilar artery, superior cerebellar arteries, and posterior cerebral arteries are all normal in appearance. No aneurysm is identified. No vascular malformation is seen. IMPRESSION: 1. Occlusion of the mid M1 segment of the right middle cerebral artery with nonvisualization of right remaining distal MCA branches compatible with a right MCA arterial occlusion and infarct. 2. The remaining vessels of the [place] of [place] are patent and normal in caliber. NICO BUCHANAN May 14, 2016 08:22
[2016-05-14] MEDS: FAMOTIDINE 20 MG INJ IV SCH ×2 (08:38→20:48)
[2016-05-14] MEDS: DOCUSATE SODIUM 100 MG CAP PO SCH ×2 (08:39→20:55)
[2016-05-14] MEDS: SALMETEROL/FLUTICASONE 250/50 INHA INH SCH ×2 (08:40→20:55)
--- NOTE | 2016-05-14 09:55 | RADRPT ---
PROCEDURE: CT Brain without contrast. CLINICAL INDICATION: Neurologic deficit ; status post t-PA TECHNIQUE: A CT of the brain was performed on multidetector high-resolution CT scanner utilizing a xial sections from the skull base through the vertex without contrast. One or more of the following dose reduction techniques were used: Automated exposure control, Adjustment of the mA and/or kV acc ording to patient size, and/or use of iterative reconstruction technique. DOSE: CTDI = 44 mGy and the DLP = 720 mGy-cm. COMPARISON: Head CT yesterday ; CT angiogram head 05/13/2016 FINDINGS: Persistent hyperdensity in the right M1 segment. There is evolution of the acute right MCA territor y infarct with hypoattenuation of the right basal ganglia, right periventricular white matter, right insula and right temporal lobe. No acute intracranial hemorrhage. There is mild mass effect with narrowing of the right lateral jennfier tricle. 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 No significant opacification of the visualized paranasal sinuses or mastoids. IMPRESSION: Evolution of the acute right MCA territory infarct with hypoattenuation of the right basal ganglia, right periventricular white matter, right insula, and right temporal lobe. No evidence of acute hem orrhage. There is mild increased mass effect and narrowing of the right lateral ventricle. No evidence of midline shift. Persistent hyperdensity in the right M1 segment compatible with the known thrombus.. RPTAT: AA .Brett Godinez MD, Date Time Electronically viewed and signed by .Brett Godinez MD, MD on 05/14/2016 09:54 .T/
--- NOTE | 2016-05-14 11:47 | CONS ---
Date/Time of Note Date/Time of Note DATE: 05/14/16 TIME: 11:22 Assessment/Plan Assessment/Plan Chief Complaint/Hosp Course 65 year old male with hx of HTN, HLD, COPD p/w Right MCA syndrome with Mid M1 resulting in large Right MCA stroke affecting basal ganglia, insular region and temporal lobe, s/p IV tPA with unknown etiology undergoing further work up. -maintain blood pressure post tPA parameters Blood pressure less than <180/105 -continue frequent neuro checks, continue to watch for signs of herniation: decrease in arousal, changes in pupillary size, development of RIGHT sided weakness should prompt immediate Head CT -hold aspirin up to 24 hours post IV tPA, may initiate aspirin starting tonight per rectum if he is unable to tolerate PO -speech/swallow evaluation pending as patient was too lethargic to cooperate this morning -increased Lipitor to 80 mg as LDL: 172, HBA1C: 5.8% wnl -ECHO with bubble study -continue telemetry monitoring for afib -DVT ppx- SCD, may initiate pharmacologic DVT ppx after 24 hours from IV tPA -avoid benzodiazepines, d/c ativan prn, family member plans to stay overnight to help reorient patient -avoid mcnamara if possible to minimize risk of infection and discomfort -will continue to follow, please contact me for any decline in his status Problems: Consultation Date/Type/Reason Admit Date/Time May 13, 2016 at 16:42 Date of Consultation: May 14, 2016 Type of Consultation: Neurology Reason for Consultation Acute Right MCA stroke Referring Provider: NICO BUCHANAN Hx of Present Illness 65 year old left handed Qatari speaking M with history of COPD, HTN, HLD presented on 05/13 after development of sudden onset of aphasia and left sided weakness with LOC at 1:30 pm. He was having coffee at his friends house when symptoms began, EMS alerted immediately, on arrival he was within a 3 hour window for IV tPA as symptoms had begun 1.5 hour prior to arrival. Initial Head CT showed Right M1 hyperdensity, he was administered IV tPA per tele- neurologist recommendations and transferred to the ICU for closer monitoring. CTA Head showed mid Right M1 occlusion. MRI Brain with acute right basal ganglia infarct. Repeat Head CT was done this morning shows evolving Right MCA infarction involving right basal ganglia territory, right insular region and right temporal lobe mild mass effect on right lateral ventricle, hyperdensity Right M1 segment visualized c/w thrombus. Per family he has been very lethargic all morning, had received ativan to obtain imaging. He is arousable with right gaze preference and significant left sided neglect, some spontaneous movement of left arm and leg. He is able to recognize all family members, asking for some of his belongings from home. Speech eval is pending as he was too lethargic this morning to cooperate. Subjective hx not possible: pt critical Past Medical History HTN HLD COPD Social History Alcohol Use: none Smoking Status: Never smoker Drug Use: none Exam/Review of Systems Vital Signs Vitals Vital Signs Date Time Temp Pulse Resp B/P Pulse Ox O2 Delivery O2 Flow Rate FiO2 05/14/16 08:00 75 05/14/16 08:00 Nasal Cannula 2.0 05/14/16 06:15 17 145/87 96 05/14/16 04:00 98.4 05/13/16 14:38 100 Intake and Output 05/13/16 05/13/16 05/14/16 15:00 23:00 07:00 Intake Total 450 ml Balance 450 ml Exam arousable to verbal stimuli speaks minimal phrases with family members in thai appropriate content of speech right gaze preference unable to cross midline to look left severe left sided neglect CN: BECCA 2 mm reactive right gaze preference, left UMN facial droop moderate dysarthria Motor: right arm and leg 5/5 strength purposeful movements left arm and leg moves in the plane of the bed when noxious stimuli applied 2/5 strength some spontaneous movements noted Sensory: grimaces to noxious in left arm and leg Coordination unable to test Results Result Diagram: 05/14/16 0455 05/14/16 0455 Results 24 hrs Laboratory Tests Test 05/13/16 14:15 05/14/16 04:55 Activated Partial Thromboplast Time 24.9 L Anion Gap 19 H 16 Basophils # 0.0 0.0 Basophils % 0.3 0.2 Blood Urea Nitrogen 15 12 Calcium Level 9.2 8.9 Carbon Dioxide Level 26 27 Chloride Level 105 104 Creatinine 0.87 0.64 Eosinophils # 0.2 0.0 Eosinophils % 2.3 0.3 Glucose Level 123 138 Hematocrit 40.4 L 41.5 L Hemoglobin 13.6 L 13.8 L Hemoglobin A1c 5.8 5.7 INR International Normalized Ratio 0.93 Lymphocytes # 3.4 H 1.3 Lymphocytes % 32.5 11.6 L Mean Corpuscular Hemoglobin 31.1 31.1 Mean Corpuscular Hemoglobin Concent 33.6 33.3 Mean Corpuscular Volume 92.4 93.2 Mean Platelet Volume 7.9 7.7 Monocytes # 0.8 0.6 Monocytes % 7.9 5.9 Neutrophils # 5.9 8.9 H Neutrophils % 57.0 82.0 H Nucleated Red Blood Cells # 0.0 0.0 Nucleated Red Blood Cells % 0.0 0.0 Platelet Count 287 264 Potassium Level 3.5 3.9 Prothrombin Time 12.5 Prothrombin Time Ratio 1.0 Red Blood Count 4.37 L 4.45 L Red Cell Distribution Width 14.2 14.3 Sodium Level 146 H 143 Troponin I 0.052 White Blood Count 10.3 10.9 H Cholesterol Level 236 H Cholesterol/HDL Ratio 5.3 HDL Cholesterol 44 LDL Cholesterol, Calculated 172 Magnesium Level 1.8 Phosphorus Level 2.4 L Triglycerides Level 98 Medications Medications Current Medications Acetaminophen (Tylenol Tab) 650 mg Q4H PRN PO Temp greater than 99.6F; Start at 16:30 Docusate Sodium (Colace) 100 mg BID PO ; Start 05/13/16 at 21:00 Ondansetron HCl (Zofran Inj) 4 mg Q6H PRN IV NAUSEA AND/OR VOMITING; Start at 16:30 Acetaminophen (Tylenol Tab) 650 mg Q6H PRN PO PAIN LEVEL 1-3 OR FEVER; Start at 16:30 Docusate Sodium (Colace) 100 mg Q12H PRN PO CONSTIPATION; Start 05/13/16 at 16: 30 Magnesium Hydroxide (Milk Of Mag) 30 ml DAILY PRN PO CONSTIPATION; Start at 16:30 Bisacodyl (Dulcolax Supp) 10 mg DAILY PRN [place] CONSTIPATION; Start 05/13/16 at 16 :30 Famotidine (Pepcid Iv) 20 mg Q12 IV Last administered on 05/14/16t 08:38; Admin Dose 20 MG; Start 05/13/16 at 21:00 Salmeterol Xinafoate/ Fluticasone (Advair 250/50 Diskus) 1 inh BID INH ; Start 05/13/16 at 21:00 Atorvastatin Calcium (Lipitor) 80 mg QHS PO ; Start 05/14/16 at 21:00 ANDREI RUBIO MD May 14, 2016 11:32
--- NOTE | 2016-05-14 14:49 | RADRPT ---
Echocardiogram Report Patient Name: LEVI MILLIGAN Gender: Male Date: 1950 Study Date: 14-May-2016 Preparation Department Supervisor: Reynaldo Bradley RDCS Location: 105 Ref. Physician: WILDA BUCHANAN Quality: Technically Difficult Study Procedures: Transthoracic echocardiogram with complete 2D, M-Mode, and doppler examination. Indications: Cerebrovascular Accident. 2D/M Mode Doppler Measurement Value Normal Ranges Measurement Value Normal Ranges LVIDd 2D 5.5 3.5 - 5.6 cm AV Peak Javier 1.6 m/sec LVIDs 2D 3.7 2.1 - 4.1 cm AV Peak PG 10.3 mmHg LVPWd 2D 1.0 0.6 - 1.1 cm LVOT Peak Javier 0.9 m/sec IVSd 2D 1.1 0.6 - 1.1 cm LVOT Peak PG 3.5 mmHg AoR Diam 2D 3.1 2.0 - 3.7 cm MV E Peak Javier 0.9 m/sec EDV 2D 148.9 cm3 MV A Peak Javier 0.7 m/sec ESV 2D 51.7 cm3 MV E/A 1.3 LA Dimen 2D 4.3 2.3 - 4.0 cm MV Decel Time 159 msec MV Decel [place] 5 MV E/A 1.3 Findings Left Ventricle: Normal left ventricular systolic function. Normal left ventricular cavity size. Normal left ventricular wall thickness. Ejection fraction is visually estimated at 60 %. Right Ventricle: Normal right ventricular size. Normal right ventricular systolic function. Left Atrium: The left atrium is normal in size. Right Atrium: The right atrium is normal in size. Atrial Septum: Bubble study was performed with no evidence of intra atrial shunt. Mitral Valve: Mitral valve leaflets appear mildly thickened. Mild mitral valve regurgitation. Aortic Valve: No hemodynamically significant aortic stenosis by doppler. Aortic cusps appear mildly calcified. Mild aortic valve regurgitation. Tricuspid Valve: Normal appearance and function of the tricuspid valve with trace physiologic regurgitation. Pulmonic Valve: Normal pulmonic valve appearance. Pericardium: Normal pericardium with no significant pericardial effusion. Aorta: Normal aortic root. IVC: Normal size and normal respiratory collapse consistent with normal right atrial pressure. Conclusions 1.Normal left ventricular systolic function. Normal left ventricular cavity size. Normal left ventricular wall thickness. Ejection fraction is visually estimated at 60 %. 2.Normal right ventricular size. Normal right ventricular systolic function. 3.The left atrium is normal in size. 4.The right atrium is normal in size. 5.Mild mitral valve regurgitation. 6.No hemodynamically significant aortic stenosis by doppler. Mild aortic valve regurgitation. 7.Normal pericardium with no significant pericardial effusion. 8.Bubble study was performed with no evidence of intra atrial shunt. Electronically Signed By: Angel Barrios 14-May-2016 14:48:17 -0800 Patient Name: LEVI MILLIGAN Study Date: 14-May-[id number]
[2016-05-14] MEDS: ATORVASTATIN 40 MG TAB PO SCH (20:55)
[2016-05-14] MEDS ORDERED: ATORVASTATIN 40 MG TAB PO SCH (21:00)
[2016-05-14] MEDS: DILTIAZEM-D5W 125MG/125ML DRIP 125 ML IV SCH (22:35)
[2016-05-14] MEDS ORDERED: AMIODARONE 150MG/D5W BOLUS 100 ML ONE (23:42)
[2016-05-15] VITALS (70 sets, daily range): BP systolic 98–166; BP diastolic 65–148; PULSE 52–129; RESP 13–25
[2016-05-15] MEDS ORDERED: AMIODARONE 150MG/D5W BOLUS 100 ML IV ONE
[2016-05-15] MEDS: AMIODARONE 900 MG in DEXTROSE 5% 482 ML IV SCH ×2 (00:14→21:11)
[2016-05-15 04:54] LABS: BASOPHILS % 0.1 % (0.0-2.0); EOSINOPHILS # 0.2 10^3/ul (0.0-0.5); EOSINOPHILS % 1.3 % (0.0-7.0); HEMATOCRIT 42.1 % (42.0-52.0); HEMOGLOBIN 14.1 g/dl (14.0-18.0); LYMPHOCYTES # 1.4 10^3/ul (0.8-2.9); LYMPHOCYTES % 10.9 % (15.0-51.0); MEAN CORPUSCULAR HGB CONC 33.3 g/dl (32.0-37.0); MEAN CORPUSCULAR VOLUME 92.8 fl (82.0-101.0); MEAN PLATELET VOLUME 7.9 fl (7.4-10.4); MONOCYTE # 0.9 10^3/ul (0.3-0.9); MONOCYTES % 6.7 % (0.0-11.0); NEUTROPHIL # 10.4 10^3/ul (1.6-7.5); PLATELET COUNT 280 10^3/UL (140-440); RED BLOOD COUNT 4.54 10^6/ul (4.70-6.10); UNCORRECTED WBC 12.9 10^3/ul (4.8-10.8); WHITE BLOOD COUNT 12.9 10^3/ul (4.8-10.8)
[2016-05-15 05:04] LABS: POTASSIUM 3.5 mmol/L (3.5-5.1)
[2016-05-15 05:07] LABS: CREATININE 0.71 mg/dl (0.61-1.24)
[2016-05-15 05:08] LABS: CALCIUM 8.6 mg/dl (8.4-10.2)
[2016-05-15 05:09] LABS: MAGNESIUM 1.7 mg/dl (1.7-2.5); PHOSPHORUS 3.1 mg/dl (2.5-4.9)
[2016-05-15 05:41] LABS: CONDITION 1
[2016-05-15] MEDS: DILTIAZEM-D5W 125MG/125ML DRIP 125 ML IV SCH (07:25)
[2016-05-15] MEDS: FAMOTIDINE 20 MG INJ IV SCH ×2 (08:34→21:10)
[2016-05-15] MEDS: SALMETEROL/FLUTICASONE 250/50 INHA INH SCH ×2 (08:35→21:00)
[2016-05-15] MEDS: DOCUSATE SODIUM 100 MG CAP PO SCH ×2 (08:35→21:00)
[2016-05-15] MEDS ORDERED: ASPIRIN 300 MG SUPP PR ONE (10:30)
[2016-05-15] MEDS ORDERED: MAGNESIUM SULFATE 2 GM/50 ML 50 ML IVPB ONE (11:00)
[2016-05-15] MEDS ORDERED: POTASSIUM CHLORIDE 250 ML IVPB ONE (11:00)
--- NOTE | 2016-05-15 11:10 | CONS ---
Date/Time of Note Date/Time of Note DATE: 05/15/16 TIME: 11:04 Consult Date/Type/Reason Admit Date/Time May 13, 2016 at 16:42 Initial Consult Date 05/14/16 Type of Consultation: Neurology Reason for Consultation Right MCA stroke Ordering Provider: NICO BUCHANAN Subjective lethargic today too drowsy to work with speech therapy per family he is able to express his needs, requesting water and coffee overnight diagnosed with new onset afib initiated on anti-arrhythmics Objective Vital Signs Date Time Temp Pulse Resp B/P Pulse Ox O2 Delivery O2 Flow Rate FiO2 05/15/16 10:15 91 17 120/88 97 Room Air 05/15/16 08:00 98.7 05/15/16 05:00 2.0 05/15/16 04:44 28 Intake and Output 05/14/16 05/14/16 05/15/16 15:00 23:00 07:00 Intake Total 200 ml 255 ml 415.4 ml Output Total 500 ml 0 ml Balance 200 ml -245 ml 415.4 ml Drowsy, able to open his eyes to voice right gaze preference, speaks few phrases in Indonesian with family unable to cooperate with commands due to lethargy CN: BECCA, right gaze preference, left UMN facial Motor: right arm and leg 5/5 purposeful movements left arm- withdraws to noxious flexor posturing left leg- withdraws to noxious in plane of the bed seems purposeful 2/5 strength Sensory grimaces to noxious stimuli in left arm and leg Results/Medications Result Diagram: 05/15/16 0345 05/15/16 0345 Results 24 hrs Laboratory Tests Test 05/15/16 03:45 Anion Gap 18 H Basophils # 0.0 Basophils % 0.1 Blood Urea Nitrogen 11 Calcium Level 8.6 Carbon Dioxide Level 26 Chloride Level 101 Creatinine 0.71 Eosinophils # 0.2 Eosinophils % 1.3 Glucose Level 156 Hematocrit 42.1 Hemoglobin 14.1 Lymphocytes # 1.4 Lymphocytes % 10.9 L Magnesium Level 1.7 Mean Corpuscular Hemoglobin 31.0 Mean Corpuscular Hemoglobin Concent 33.3 Mean Corpuscular Volume 92.8 Mean Platelet Volume 7.9 Monocytes # 0.9 Monocytes % 6.7 Neutrophils # 10.4 H Neutrophils % 81.0 H Nucleated Red Blood Cells # 0.0 Nucleated Red Blood Cells % 0.0 Phosphorus Level 3.1 Platelet Count 280 Potassium Level 3.5 Red Blood Count 4.54 L Red Cell Distribution Width 14.0 Sodium Level 141 White Blood Count 12.9 H Medications Current Medications Acetaminophen (Tylenol Tab) 650 mg Q4H PRN PO Temp greater than 99.6F; Start at 16:30 Docusate Sodium (Colace) 100 mg BID PO ; Start 05/13/16 at 21:00 Ondansetron HCl (Zofran Inj) 4 mg Q6H PRN IV NAUSEA AND/OR VOMITING; Start at 16:30 Acetaminophen (Tylenol Tab) 650 mg Q6H PRN PO PAIN LEVEL 1-3 OR FEVER; Start at 16:30 Docusate Sodium (Colace) 100 mg Q12H PRN PO CONSTIPATION; Start 05/13/16 at 16: 30 Magnesium Hydroxide (Milk Of Mag) 30 ml DAILY PRN PO CONSTIPATION; Start at 16:30 Bisacodyl (Dulcolax Supp) 10 mg DAILY PRN [place] CONSTIPATION; Start 05/13/16 at 16 :30 Famotidine (Pepcid Iv) 20 mg Q12 IV Last administered on 05/15/16 08:34; Admin Dose 20 MG; Start 05/13/16 at 21:00 Salmeterol Xinafoate/ Fluticasone (Advair 250/50 Diskus) 1 inh BID INH ; Start 05/13/16 at 21:00 Atorvastatin Calcium 80 mg 80 mg QHS PO ; Start 05/14/16 at 21:00 Diltiazem HCl (Cardizem-D5W 125 Mg/125 ml Drip) 125 ml @ 5 mls/hr TITRATE IV Last administered on 05/15/16 07:25; Admin Dose 10 MLS/HR; Start 05/14/16 at 22 :30 Hydralazine HCl 10 mg 10 mg Q4H PRN IV ELEVATED BLOOD PRESSURE; Start 05/14/16 at 22:30 Amiodarone HCl 900 mg/Dextrose 500 ml @ 0 mls/hr Q0M IV Last administered on 00:14; Admin Dose 33.4 MLS/HR; Start 05/15/16 at 00:10 Magnesium Sulfate 50 ml @ 25 mls/hr ONCE ONCE IVPB ; Start 05/15/16 at 11:00; Stop 05/15/16 at 12:59 Potassium Chloride (KCl 40 MEQ/250 ML NS) 250 ml @ 62.5 mls/hr ONCE ONCE IVPB ; Start 05/15/16 at 11:00; Stop 05/15/16 at 14:59 Assessment/Plan Chief Complaint/Hosp Course 65 year old male with hx of HTN, HLD, COPD p/w 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 Etiology: Cardio-embolic etiology -maintain blood pressure <180/105 -cardiology consultation for newly diagnosed afib, may also initiate his home anti-hypertensives as needed -speech/swallow reevaluation daily -ASA 300 mg VA, will require anticoagulation due to large size of infarction and high risk for hemorrhagic conversion would wait up to 14 days (05/27/16) -continue frequent neuro checks and continue to watch for signs of herniation: decrease in arousal, changes in pupillary size, development of RIGHT sided weakness should prompt immediate Head CT -Lipitor 80 mg qhs when able to tolerate PO -ECHO with bubble no PFO, normal EF no thrombus -continue on telemetry -DVT ppx- initiate Lovenox today -avoid benzodiazepines, d/c ativan prn, family member plans to stay overnight to help reorient patient -avoid mcnamara if possible to minimize risk of infection and discomfort -continue to monitor WBC slightly uptrending -will continue to follow, please contact me for any decline in his status Problems: ANDREI RUBIO MD May 15, 2016 11:10
--- NOTE | 2016-05-15 11:19 | PN ---
Date/Time of Note Date/Time of Note DATE: 05/15/16 TIME: 10:53 Assessment/Plan VTE Prophylaxis VTE Prophylaxis Intervention: SCD's Lines/Catheters IV [facility] ([facility] Peripheral IV Urinary Cath still in place: No Assessment/Plan Assessment/Plan 65-year-old male with: 1. 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 MRI brain confirming Right MCA territory CVA CTA head with occlusion of the mid M1 segment of the right middle cerebral artery with nonvisualization of right remaining distal MCA branches Protecting his airway well and seems to be more awake and moving left side a little more In A fib overnight and rate controlled on Cardizem and Amiodarone, per Neurology no anticoagulation x 14 days ( start on 05/27) but OK to continue ASA per rectum Continue statin therapy. Aggressive PT/OT/ST to continue. 2. Atrial Fibrillation: on Cardizem and Amiodarone, 2D echo done and Cardiology Dr Barrios to see patient. 3. Hypertension. BP stable. 4. Asthma. Continue inhaler and nebulizers prn. Prophylaxis. S/p TPA. Will have him on Pepcid for GI prophylaxis. ASA DISPOSITION: Monitor in ICU with very close monitoring of neurological status. Appreciate Neurology follow up, Cardiology evaluation pending. Subjective 24 Hr Interval Summary Free Text/Dictation Patient lethargic but seems to be more easily arousable and seems to be moving his body better Left Hemiparesis slightly better Exam/Review of Systems Vital Signs Vitals Vital Signs Date Time Temp Pulse Resp B/P Pulse Ox O2 Delivery O2 Flow Rate FiO2 05/15/16 08:00 78 05/15/16 06:45 19 111/81 97 05/15/16 06:00 Room Air 05/15/16 05:00 2.0 05/15/16 04:44 28 05/15/16 04:00 98.7 Intake and Output 05/14/16 05/14/16 05/15/16 15:00 23:00 07:00 Intake Total 200 ml 255 ml 415.4 ml Output Total 500 ml 0 ml Balance 200 ml -245 ml 415.4 ml Exam Constitutional: other (more alert but still with lethargy ) Respiratory: clear to auscultation, normal air movement Cardiovascular: nl pulses, regular rate and rhythm Gastrointestinal: non-tender, soft Musculoskeletal: nl extremities to inspection Extremities: normal pulses, other (no edema, clubbing or cyanosis ) Neurological: focal weakness (left hemiparesis ), other (improved right facial droop ) Results Result Diagram: 05/15/16 0345 05/15/16 0345 Results 24 hrs Laboratory Tests Test 05/15/16 03:45 Anion Gap 18 H Basophils # 0.0 Basophils % 0.1 Blood Urea Nitrogen 11 Calcium Level 8.6 Carbon Dioxide Level 26 Chloride Level 101 Creatinine 0.71 Eosinophils # 0.2 Eosinophils % 1.3 Glucose Level 156 Hematocrit 42.1 Hemoglobin 14.1 Lymphocytes # 1.4 Lymphocytes % 10.9 L Magnesium Level 1.7 Mean Corpuscular Hemoglobin 31.0 Mean Corpuscular Hemoglobin Concent 33.3 Mean Corpuscular Volume 92.8 Mean Platelet Volume 7.9 Monocytes # 0.9 Monocytes % 6.7 Neutrophils # 10.4 H Neutrophils % 81.0 H Nucleated Red Blood Cells # 0.0 Nucleated Red Blood Cells % 0.0 Phosphorus Level 3.1 Platelet Count 280 Potassium Level 3.5 Red Blood Count 4.54 L Red Cell Distribution Width 14.0 Sodium Level 141 White Blood Count 12.9 H Medications Medications Current Medications Acetaminophen (Tylenol Tab) 650 mg Q4H PRN PO Temp greater than 99.6F; Start at 16:30 Docusate Sodium (Colace) 100 mg BID PO ; Start 05/13/16 at 21:00 Ondansetron HCl (Zofran Inj) 4 mg Q6H PRN IV NAUSEA AND/OR VOMITING; Start at 16:30 Acetaminophen (Tylenol Tab) 650 mg Q6H PRN PO PAIN LEVEL 1-3 OR FEVER; Start at 16:30 Docusate Sodium (Colace) 100 mg Q12H PRN PO CONSTIPATION; Start 05/13/16 at 16: 30 Magnesium Hydroxide (Milk Of Mag) 30 ml DAILY PRN PO CONSTIPATION; Start at 16:30 Bisacodyl (Dulcolax Supp) 10 mg DAILY PRN [place] CONSTIPATION; Start 05/13/16 at 16 :30 Famotidine (Pepcid Iv) 20 mg Q12 IV Last administered on 05/15/16t 08:34; Admin Dose 20 MG; Start 05/13/16 at 21:00 Salmeterol Xinafoate/ Fluticasone (Advair 250/50 Diskus) 1 inh BID INH ; Start 05/13/16 at 21:00 Atorvastatin Calcium 80 mg 80 mg QHS PO ; Start 05/14/16 at 21:00 Diltiazem HCl (Cardizem-D5W 125 Mg/125 ml Drip) 125 ml @ 5 mls/hr TITRATE IV Last administered on 05/15/16 07:25; Admin Dose 10 MLS/HR; Start 05/14/16 at 22 :30 Hydralazine HCl 10 mg 10 mg Q4H PRN IV ELEVATED BLOOD PRESSURE; Start 05/14/16 at 22:30 Amiodarone HCl 900 mg/Dextrose 500 ml @ 0 mls/hr Q0M IV Last administered on 00:14; Admin Dose 33.4 MLS/HR; Start 05/15/16 at 00:10 Magnesium Sulfate 50 ml @ 25 mls/hr ONCE ONCE IVPB ; Start 05/15/16 at 11:00; Stop 05/15/16 at 12:59; Status UNV Potassium Chloride (KCl 40 MEQ/250 ML NS) 250 ml @ 62.5 mls/hr ONCE ONCE IVPB ; Start 05/15/16 at 11:00; Stop 05/15/16 at 14:59; Status UNV NICO BUCHANAN May 15, 2016 11:16
[2016-05-15] MEDS ORDERED: ENOXAPARIN 40 MG/0.4 ML SYG SC ONE (11:30)
--- NOTE | 2016-05-15 12:17 | CONS ---
Date/Time of Note Date/Time of Note DATE: 05/15/16 TIME: 12:12 Assessment/Plan Assessment/Plan Additional Assessment/Plan Right MCA CVA Paroxysmal atrial fibrillation Preserved ejection fraction Hypertension Dyslipidemia -Patient with atrial fibrillation last night and converted to sinus rhythm with amiodarone. Would continue IV amiodarone until able to tolerate p.o. Patient ideally would need to be on anticoagulation. In review of our neurology colleague note, given large CVA, would need to hold anticoagulation for at least 14 days given risk of hemorrhagic conversion. Will continue aspirin and statin therapy at the current time. Permissive hypertension. Consultation Date/Type/Reason Admit Date/Time May 13, 2016 at 16:42 Type of Consultation: cv Reason for Consultation Atrial fibrillation Hx of Present Illness This is a 65-year-old male who presented with left hemiparesis and dysarthria and found to have right MCA embolic CVA. Patient status post TPA. Last night, patient went into atrial fibrillation and for this reason cardiology consultation was requested this morning. He was started on amiodarone and converted to sinus rhythm. Is currently awake, follows some basic commands but appears lethargic. Unable to be performed at the current time given patient's mental status Past Medical History Medical History: high cholesterol, hypertension Past Surgical History Past Surgical Hx: no surgical history Social History Alcohol Use: none Smoking Status: Never smoker Drug Use: none Exam/Review of Systems Vital Signs Vitals Vital Signs Date Time Temp Pulse Resp B/P Pulse Ox O2 Delivery O2 Flow Rate FiO2 05/15/16 10:15 91 17 120/88 97 Room Air 05/15/16 08:00 98.7 05/15/16 05:00 2.0 05/15/16 04:44 28 Intake and Output 05/14/16 05/14/16 05/15/16 15:00 23:00 07:00 Intake Total 200 ml 255 ml 415.4 ml Output Total 500 ml 0 ml Balance 200 ml -245 ml 415.4 ml Exam Follow some commands, lethargic at times, no apparent distress Constitutional: alert Head: normocephalic Neck: supple Respiratory: other (Coarse breath sounds bilaterally, no wheezing) Cardiovascular: other (S1-S2 heard), regular rate and rhythm Gastrointestinal: bowel sounds, non-tender, other (No guarding), soft Extremities: edema (Trace) Results Result Diagram: 05/15/16 0345 05/15/16 0345 Results 24 hrs Laboratory Tests Test 05/15/16 03:45 Anion Gap 18 H Basophils # 0.0 Basophils % 0.1 Blood Urea Nitrogen 11 Calcium Level 8.6 Carbon Dioxide Level 26 Chloride Level 101 Creatinine 0.71 Eosinophils # 0.2 Eosinophils % 1.3 Glucose Level 156 Hematocrit 42.1 Hemoglobin 14.1 Lymphocytes # 1.4 Lymphocytes % 10.9 L Magnesium Level 1.7 Mean Corpuscular Hemoglobin 31.0 Mean Corpuscular Hemoglobin Concent 33.3 Mean Corpuscular Volume 92.8 Mean Platelet Volume 7.9 Monocytes # 0.9 Monocytes % 6.7 Neutrophils # 10.4 H Neutrophils % 81.0 H Nucleated Red Blood Cells # 0.0 Nucleated Red Blood Cells % 0.0 Phosphorus Level 3.1 Platelet Count 280 Potassium Level 3.5 Red Blood Count 4.54 L Red Cell Distribution Width 14.0 Sodium Level 141 White Blood Count 12.9 H Medications Medications Current Medications Acetaminophen (Tylenol Tab) 650 mg Q4H PRN PO Temp greater than 99.6F; Start at 16:30 Docusate Sodium (Colace) 100 mg BID PO ; Start 05/13/16 at 21:00 Ondansetron HCl (Zofran Inj) 4 mg Q6H PRN IV NAUSEA AND/OR VOMITING; Start at 16:30 Acetaminophen (Tylenol Tab) 650 mg Q6H PRN PO PAIN LEVEL 1-3 OR FEVER; Start at 16:30 Docusate Sodium (Colace) 100 mg Q12H PRN PO CONSTIPATION; Start 05/13/16 at 16: 30 Magnesium Hydroxide (Milk Of Mag) 30 ml DAILY PRN PO CONSTIPATION; Start at 16:30 Bisacodyl (Dulcolax Supp) 10 mg DAILY PRN [place] CONSTIPATION; Start 05/13/16 at 16 :30 Famotidine (Pepcid Iv) 20 mg Q12 IV Last administered on 05/15/16t 08:34; Admin Dose 20 MG; Start 05/13/16 at 21:00 Salmeterol Xinafoate/ Fluticasone (Advair 250/50 Diskus) 1 inh BID INH ; Start 05/13/16 at 21:00 Atorvastatin Calcium 80 mg 80 mg QHS PO ; Start 05/14/16 at 21:00 Diltiazem HCl (Cardizem-D5W 125 Mg/125 ml Drip) 125 ml @ 5 mls/hr TITRATE IV Last administered on 05/15/16 07:25; Admin Dose 10 MLS/HR; Start 05/14/16 at 22 :30 Hydralazine HCl 10 mg 10 mg Q4H PRN IV ELEVATED BLOOD PRESSURE; Start 05/14/16 at 22:30 Amiodarone HCl 900 mg/Dextrose 500 ml @ 0 mls/hr Q0M IV Last administered on 00:14; Admin Dose 33.4 MLS/HR; Start 05/15/16 at 00:10 Magnesium Sulfate 50 ml @ 25 mls/hr ONCE ONCE IVPB Last administered on 11:22; Admin Dose 25 MLS/HR; Start 05/15/16 at 11:00; Stop 05/15/16 at 12: 59 Potassium Chloride (KCl 40 MEQ/250 ML NS) 250 ml @ 62.5 mls/hr ONCE ONCE IVPB Last administered on 05/15/16 11:22; Admin Dose 62.5 MLS/HR; Start 05/15/16 at 11:00; Stop 05/15/16 at 14:59 Procedures Procedures ECG done on 05/13/2015 demonstrates sinus rhythm at 78 bpm. ECG done yesterday demonstrates atrial fibrillation with rapid ventricular rates in the 150s, nonspecific STT wave abnormalities Angel Barrios DO May 15, 2016 12:16
[2016-05-15] MEDS: hydrALAzine 20 MG INJ IV PRN ×2 (13:05→19:02)
--- NOTE | 2016-05-15 20:48 | RADRPT ---
Vent Rate: 149 bpm RR Interval: 0 msec WI Interval: 0 msec QRS Duration: 90 msec QT Interval: 322 msec QTC Interval: 507 msec P-R-T [place]: 0 - 85 - -36 degrees Atrial fibrillation with rapid ventricular response Nonspecific ST abnormality , probably digitalis effect Abnormal QRS-T angle, consider primary T wave abnormality Abnormal ECG Electronically Signed By: Angel Barrios [id number]
[2016-05-15] MEDS: ATORVASTATIN 40 MG TAB PO SCH (21:00)
[2016-05-16] VITALS (48 sets, daily range): BP systolic 106–184; BP diastolic 79–143; PULSE 75–105; RESP 7–26
[2016-05-16 05:12] LABS: BARBITURATES Negative (NEGATIVE); BENZODIAZEPINES Negative (NEGATIVE); CANNABINOIDS Negative (NEGATIVE); COCAINE Negative (NEGATIVE)
[2016-05-16 05:15] LABS: OPIATES Negative (NEGATIVE)
[2016-05-16 07:11] LABS: BASOPHILS % 0.3 % (0.0-2.0); EOSINOPHILS # 0.2 10^3/ul (0.0-0.5); EOSINOPHILS % 1.5 % (0.0-7.0); HEMATOCRIT 40.8 % (42.0-52.0); HEMOGLOBIN 13.9 g/dl (14.0-18.0); LYMPHOCYTES # 1.9 10^3/ul (0.8-2.9); LYMPHOCYTES % 16.6 % (15.0-51.0); MEAN CORPUSCULAR HEMOGLOBIN 31.2 pg (29.0-33.0); MEAN CORPUSCULAR HGB CONC 33.9 g/dl (32.0-37.0); MEAN PLATELET VOLUME 7.6 fl (7.4-10.4); MONOCYTE # 0.9 10^3/ul (0.3-0.9); NEUTROPHIL # 8.4 10^3/ul (1.6-7.5); NEUTROPHILS % 73.6 % (39.0-77.0); PLATELET COUNT 277 10^3/UL (140-440); RED BLOOD COUNT 4.44 10^6/ul (4.70-6.10); RED CELL DISTRIBUTION WIDTH 14.3 % (11.5-14.5); UNCORRECTED WBC 11.4 10^3/ul (4.8-10.8); WHITE BLOOD COUNT 11.4 10^3/ul (4.8-10.8)
[2016-05-16 07:18] LABS: CONDITION 1
[2016-05-16 07:27] LABS: ALBUMIN 4.1 g/dl (3.3-4.9)
[2016-05-16 07:28] LABS: PHOSPHORUS 3.1 mg/dl (2.5-4.9); POTASSIUM 3.8 mmol/L (3.5-5.1)
[2016-05-16 07:29] LABS: MAGNESIUM 2.2 mg/dl (1.7-2.5)
[2016-05-16 07:30] LABS: BILIRUBIN,INDIRECT 0.9 mg/dl (0-1.1); BILIRUBIN,TOTAL 0.9 mg/dl (0.2-1.3); CREATININE 0.86 mg/dl (0.61-1.24)
[2016-05-16 07:31] LABS: ALBUMIN/GLOBULIN RATIO 1.32; TOTAL PROTEIN 7.2 g/dl (6.1-8.1)
[2016-05-16 07:32] LABS: CALCIUM 8.7 mg/dl (8.4-10.2)
[2016-05-16] MEDS: SALMETEROL/FLUTICASONE 250/50 INHA INH SCH ×2 (09:00→21:00)
[2016-05-16] MEDS: DOCUSATE SODIUM 100 MG CAP PO SCH ×2 (09:00→21:00)
[2016-05-16] MEDS: FAMOTIDINE 20 MG INJ IV SCH ×2 (09:50→22:47)
--- NOTE | 2016-05-16 10:05 | PN ---
Date/Time of Note Date/Time of Note DATE: 05/16/16 TIME: 09:45 Assessment/Plan VTE Prophylaxis VTE Prophylaxis Intervention: SCD's Lines/Catheters IV [facility] ([facility] Peripheral IV Urinary Cath still in place: No (condom catheter ) Assessment/Plan Assessment/Plan 65-year-old male with: 1. 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 Paroxysmal A fib dx while in ICU. MRI brain confirming Right MCA territory CVA CTA head with occlusion of the mid M1 segment of the right middle cerebral artery with nonvisualization of right remaining distal MCA branches Protecting his airway well and seems to be more awake, but still lethargic and with left hemiparesis. Continue rate control, No anticoagulation x 14 days due to large size of CVA and high risk for hemorrhagic conversion Aggressive PT/OT/ST to continue. 2. Paroxysmal Atrial Fibrillation: on Amiodarone now, 2D echo done and Cardiology Dr Barrios to see patient. 3. Hypertension. BP stable. 4. Asthma. Continue inhaler and nebulizers prn. Prophylaxis. S/p TPA. Will have him on Pepcid for GI prophylaxis. ASA started per rectum, Schuster in place DISPOSITION: Monitor in ICU with very close monitoring of neurological status. Appreciate Neurology follow up, Cardiology evaluation pending. Subjective 24 Hr Interval Summary Free Text/Dictation Patient remains stable Still lethargic but a little more awake for longer periods of time per Family In SR this AM, on Amiodarone on ASA Exam/Review of Systems Vital Signs Vitals Vital Signs Date Time Temp Pulse Resp B/P Pulse Ox O2 Delivery O2 Flow Rate FiO2 05/16/16 09:00 86 19 165/94 93 Room Air 05/16/16 08:00 98.7 05/16/16 05:34 21 05/15/16 05:00 2.0 Intake and Output 05/15/16 05/15/16 05/16/16 15:00 23:00 07:00 Intake Total 8 ml 83.5 ml 116.9 ml Balance 8 ml 83.5 ml 116.9 ml Exam Constitutional: other (left hemiparesis, lethargic ) ENMT: other (right facial droop ) Respiratory: clear to auscultation, normal air movement Cardiovascular: nl pulses, regular rate and rhythm Gastrointestinal: non-tender, soft Musculoskeletal: nl extremities to inspection, other (no edema, clubbing or cyanosis ) Extremities: normal pulses Neurological: focal weakness (left hemiparesis and right facial droop ), lethargic (a little more awake ) Results Result Diagram: 05/16/16 0640 05/16/16 0640 Results 24 hrs Laboratory Tests Test 05/16/16 02:30 05/16/16 06:40 Urine Amphetamines Screen Negative Urine Barbiturates Negative Urine Benzodiazepines Screen Negative Urine Cannabinoids Negative Urine Cocaine Screen Negative Urine Opiates Screen Negative Alanine Aminotransferase (ALT/SGPT) 28 Albumin 4.1 Albumin/Globulin Ratio 1.32 Alkaline Phosphatase 56 Anion Gap 17 H Aspartate Amino Transf (AST/SGOT) 23 Basophils # 0.0 Basophils % 0.3 Blood Urea Nitrogen 19 Calcium Level 8.7 Carbon Dioxide Level 25 Chloride Level 104 Creatinine 0.86 Direct Bilirubin 0.00 Eosinophils # 0.2 Eosinophils % 1.5 Globulin 3.10 Glucose Level 133 Hematocrit 40.8 L Hemoglobin 13.9 L Indirect Bilirubin 0.9 Lymphocytes # 1.9 Lymphocytes % 16.6 Magnesium Level 2.2 Mean Corpuscular Hemoglobin 31.2 Mean Corpuscular Hemoglobin Concent 33.9 Mean Corpuscular Volume 92.0 Mean Platelet Volume 7.6 Monocytes # 0.9 Monocytes % 8.0 Neutrophils # 8.4 H Neutrophils % 73.6 Nucleated Red Blood Cells # 0.0 Nucleated Red Blood Cells % 0.0 Phosphorus Level 3.1 Platelet Count 277 Potassium Level 3.8 Red Blood Count 4.44 L Red Cell Distribution Width 14.3 Sodium Level 142 Total Bilirubin 0.9 Total Protein 7.2 White Blood Count 11.4 H Medications Medications Current Medications Acetaminophen (Tylenol Tab) 650 mg Q4H PRN PO Temp greater than 99.6F; Start at 16:30 Docusate Sodium (Colace) 100 mg BID PO ; Start 05/13/16 at 21:00 Ondansetron HCl (Zofran Inj) 4 mg Q6H PRN IV NAUSEA AND/OR VOMITING; Start at 16:30 Acetaminophen (Tylenol Tab) 650 mg Q6H PRN PO PAIN LEVEL 1-3 OR FEVER; Start at 16:30 Docusate Sodium (Colace) 100 mg Q12H PRN PO CONSTIPATION; Start 05/13/16 at 16: 30 Magnesium Hydroxide (Milk Of Mag) 30 ml DAILY PRN PO CONSTIPATION; Start at 16:30 Bisacodyl (Dulcolax Supp) 10 mg DAILY PRN [place] CONSTIPATION; Start 05/13/16 at 16 :30 Famotidine (Pepcid Iv) 20 mg Q12 IV Last administered on 05/15/16 21:10; Admin Dose 20 MG; Start 05/13/16 at 21:00 Salmeterol Xinafoate/ Fluticasone (Advair 250/50 Diskus) 1 inh BID INH ; Start 05/13/16 at 21:00 Atorvastatin Calcium 80 mg 80 mg QHS PO ; Start 05/14/16 at 21:00 Diltiazem HCl (Cardizem-D5W 125 Mg/125 ml Drip) 125 ml @ 5 mls/hr TITRATE IV Last administered on 05/15/16 07:25; Admin Dose 10 MLS/HR; Start 05/14/16 at 22 :30 Hydralazine HCl 10 mg 10 mg Q4H PRN IV ELEVATED BLOOD PRESSURE Last administered on 05/15/16 19:02; Admin Dose 10 MG; Start 05/14/16 at 22:30 Amiodarone HCl/ Dextrose (Cordarone Iv/ D5W) 500 ml @ 0 mls/hr Q0M IV Last administered on 05/15/16 21:11; Admin Dose 16.7 MLS/HR; Start 05/15/16 at 00:10 NICO BUCHANAN May 16, 2016 09:55
[2016-05-16] MEDS: hydrALAzine 20 MG INJ IV PRN (11:08)
--- NOTE | 2016-05-16 11:42 | CONS ---
Date/Time of Note Date/Time of Note DATE: 05/16/16 TIME: 11:40 Assessment/Plan Assessment/Plan Additional Assessment/Plan Right MCA CVA Paroxysmal atrial fibrillation Preserved ejection fraction Hypertension Dyslipidemia -Patient still with episodes of paroxysmal atrial fibrillation. Still unable to take p.o. medications. Would continue IV amiodarone. Once able to take p.o. , would start. As discussed in previous note and discussion with our neurology colleague, given size of CVA, anticoagulation on hold. Consultation Date/Type/Reason Admit Date/Time May 13, 2016 at 16:42 Initial Consult Date 05/14/16 Type of Consultation: cv Referring Provider: NICO BUCHANAN 24 HR Interval Summary Free Text/Dictation Patient seen and examined. Family at bedside. Mental status improving Exam/Review of Systems Vital Signs Vitals Vital Signs Date Time Temp Pulse Resp B/P Pulse Ox O2 Delivery O2 Flow Rate FiO2 05/16/16 10:30 87 23 167/102 92 Room Air 05/16/16 08:00 98.7 05/16/16 05:34 21 05/15/16 05:00 2.0 Intake and Output 05/15/16 05/15/16 05/16/16 15:00 23:00 07:00 Intake Total 8 ml 83.5 ml 116.9 ml Balance 8 ml 83.5 ml 116.9 ml Exam Sleeping but arousable, no apparent distress Head: normocephalic Neck: supple Respiratory: clear to auscultation, normal air movement Cardiovascular: other (S1-S2 heard), regular rate and rhythm Gastrointestinal: bowel sounds, non-tender, soft Extremities: edema (Trace) Results Result Diagram: 05/16/16 0640 05/16/16 0640 Results 24 hrs Laboratory Tests Test 05/16/16 02:30 05/16/16 06:40 Urine Amphetamines Screen Negative Urine Barbiturates Negative Urine Benzodiazepines Screen Negative Urine Cannabinoids Negative Urine Cocaine Screen Negative Urine Opiates Screen Negative Alanine Aminotransferase (ALT/SGPT) 28 Albumin 4.1 Albumin/Globulin Ratio 1.32 Alkaline Phosphatase 56 Anion Gap 17 H Aspartate Amino Transf (AST/SGOT) 23 Basophils # 0.0 Basophils % 0.3 Blood Urea Nitrogen 19 Calcium Level 8.7 Carbon Dioxide Level 25 Chloride Level 104 Creatinine 0.86 Direct Bilirubin 0.00 Eosinophils # 0.2 Eosinophils % 1.5 Globulin 3.10 Glucose Level 133 Hematocrit 40.8 L Hemoglobin 13.9 L Indirect Bilirubin 0.9 Lymphocytes # 1.9 Lymphocytes % 16.6 Magnesium Level 2.2 Mean Corpuscular Hemoglobin 31.2 Mean Corpuscular Hemoglobin Concent 33.9 Mean Corpuscular Volume 92.0 Mean Platelet Volume 7.6 Monocytes # 0.9 Monocytes % 8.0 Neutrophils # 8.4 H Neutrophils % 73.6 Nucleated Red Blood Cells # 0.0 Nucleated Red Blood Cells % 0.0 Phosphorus Level 3.1 Platelet Count 277 Potassium Level 3.8 Red Blood Count 4.44 L Red Cell Distribution Width 14.3 Sodium Level 142 Total Bilirubin 0.9 Total Protein 7.2 White Blood Count 11.4 H Medications Medications Current Medications Acetaminophen (Tylenol Tab) 650 mg Q4H PRN PO Temp greater than 99.6F; Start at 16:30 Docusate Sodium (Colace) 100 mg BID PO ; Start 05/13/16 at 21:00 Ondansetron HCl (Zofran Inj) 4 mg Q6H PRN IV NAUSEA AND/OR VOMITING; Start at 16:30 Acetaminophen (Tylenol Tab) 650 mg Q6H PRN PO PAIN LEVEL 1-3 OR FEVER; Start at 16:30 Docusate Sodium (Colace) 100 mg Q12H PRN PO CONSTIPATION; Start 05/13/16 at 16: 30 Magnesium Hydroxide (Milk Of Mag) 30 ml DAILY PRN PO CONSTIPATION; Start at 16:30 Bisacodyl (Dulcolax Supp) 10 mg DAILY PRN [place] CONSTIPATION; Start 05/13/16 at 16 :30 Famotidine (Pepcid Iv) 20 mg Q12 IV Last administered on 05/16/16t 09:50; Admin Dose 20 MG; Start 05/13/16 at 21:00 Salmeterol Xinafoate/ Fluticasone (Advair 250/50 Diskus) 1 inh BID INH ; Start 05/13/16 at 21:00 Atorvastatin Calcium 80 mg 80 mg QHS PO ; Start 05/14/16 at 21:00 Diltiazem HCl (Cardizem-D5W 125 Mg/125 ml Drip) 125 ml @ 5 mls/hr TITRATE IV Last administered on 05/15/16 07:25; Admin Dose 10 MLS/HR; Start 05/14/16 at 22 :30 Hydralazine HCl 10 mg 10 mg Q4H PRN IV ELEVATED BLOOD PRESSURE Last administered on 05/16/16 11:08; Admin Dose 10 MG; Start 05/14/16 at 22:30 Amiodarone HCl/ Dextrose (Cordarone Iv/ D5W) 500 ml @ 0 mls/hr Q0M IV Last administered on 05/15/16 21:11; Admin Dose 16.7 MLS/HR; Start 05/15/16 at 00:10 Aspirin (Aspirin) 300 mg DAILY [place] ; Start 05/16/16 at 10:30 Angel Barrios DO May 16, 2016 11:42
[2016-05-16] MEDS: ASPIRIN 300 MG SUPP PR SCH (12:16)
--- NOTE | 2016-05-16 15:28 | CONS ---
Date/Time of Note Date/Time of Note DATE: 05/16/16 TIME: 15:20 Consult Date/Type/Reason Admit Date/Time May 13, 2016 at 16:42 Initial Consult Date 05/14/16 Type of Consultation: Neurology Reason for Consultation Right MCA Stroke Ordering Provider: NICO BUCHANAN Subjective remains lethargic, intermittently awakens asking family members to leave him allow him to sleep has not passed speech swallow exam Objective Vital Signs Date Time Temp Pulse Resp B/P Pulse Ox O2 Delivery O2 Flow Rate FiO2 05/16/16 13:30 80 21 140/87 95 Room Air 05/16/16 12:00 98.4 05/16/16 05:34 21 05/15/16 05:00 2.0 Intake and Output 05/15/16 05/15/16 05/16/16 15:00 23:00 07:00 Intake Total 8 ml 83.5 ml 116.9 ml Balance 8 ml 83.5 ml 116.9 ml Drowsy, able to open his eyes to voice right gaze preference, speaks few phrases in [place] with family unable to cooperate with commands due to lethargy CN: BECCA, right gaze preference, left UMN facial Motor: right arm and leg 5/5 purposeful movements left arm- withdraws to noxious flexor posturing left leg- withdraws to noxious in plane of the bed seems purposeful 2/5 strength Sensory grimaces to noxious stimuli in left arm and leg Results/Medications Result Diagram: 05/16/16 0640 05/16/16 0640 Results 24 hrs Laboratory Tests Test 05/16/16 02:30 05/16/16 06:40 Urine Amphetamines Screen Negative Urine Barbiturates Negative Urine Benzodiazepines Screen Negative Urine Cannabinoids Negative Urine Cocaine Screen Negative Urine Opiates Screen Negative Alanine Aminotransferase (ALT/SGPT) 28 Albumin 4.1 Albumin/Globulin Ratio 1.32 Alkaline Phosphatase 56 Anion Gap 17 H Aspartate Amino Transf (AST/SGOT) 23 Basophils # 0.0 Basophils % 0.3 Blood Urea Nitrogen 19 Calcium Level 8.7 Carbon Dioxide Level 25 Chloride Level 104 Creatinine 0.86 Direct Bilirubin 0.00 Eosinophils # 0.2 Eosinophils % 1.5 Globulin 3.10 Glucose Level 133 Hematocrit 40.8 L Hemoglobin 13.9 L Indirect Bilirubin 0.9 Lymphocytes # 1.9 Lymphocytes % 16.6 Magnesium Level 2.2 Mean Corpuscular Hemoglobin 31.2 Mean Corpuscular Hemoglobin Concent 33.9 Mean Corpuscular Volume 92.0 Mean Platelet Volume 7.6 Monocytes # 0.9 Monocytes % 8.0 Neutrophils # 8.4 H Neutrophils % 73.6 Nucleated Red Blood Cells # 0.0 Nucleated Red Blood Cells % 0.0 Phosphorus Level 3.1 Platelet Count 277 Potassium Level 3.8 Red Blood Count 4.44 L Red Cell Distribution Width 14.3 Sodium Level 142 Total Bilirubin 0.9 Total Protein 7.2 White Blood Count 11.4 H Medications Current Medications Acetaminophen (Tylenol Tab) 650 mg Q4H PRN PO Temp greater than 99.6F; Start at 16:30 Docusate Sodium (Colace) 100 mg BID PO ; Start 05/13/16 at 21:00 Ondansetron HCl (Zofran Inj) 4 mg Q6H PRN IV NAUSEA AND/OR VOMITING; Start at 16:30 Acetaminophen (Tylenol Tab) 650 mg Q6H PRN PO PAIN LEVEL 1-3 OR FEVER; Start at 16:30 Docusate Sodium (Colace) 100 mg Q12H PRN PO CONSTIPATION; Start 05/13/16 at 16: 30 Magnesium Hydroxide (Milk Of Mag) 30 ml DAILY PRN PO CONSTIPATION; Start at 16:30 Bisacodyl (Dulcolax Supp) 10 mg DAILY PRN [place] CONSTIPATION; Start 05/13/16 at 16 :30 Famotidine (Pepcid Iv) 20 mg Q12 IV Last administered on 05/16/16 09:50; Admin Dose 20 MG; Start 05/13/16 at 21:00 Salmeterol Xinafoate/ Fluticasone (Advair 250/50 Diskus) 1 inh BID INH ; Start 05/13/16 at 21:00 Atorvastatin Calcium 80 mg 80 mg QHS PO ; Start 05/14/16 at 21:00 Diltiazem HCl (Cardizem-D5W 125 Mg/125 ml Drip) 125 ml @ 5 mls/hr TITRATE IV Last administered on 05/15/16 07:25; Admin Dose 10 MLS/HR; Start 05/14/16 at 22 :30 Hydralazine HCl 10 mg 10 mg Q4H PRN IV ELEVATED BLOOD PRESSURE Last administered on 05/16/16 11:08; Admin Dose 10 MG; Start 05/14/16 at 22:30 Amiodarone HCl/ Dextrose (Cordarone Iv/ D5W) 500 ml @ 0 mls/hr Q0M IV Last administered on 05/15/16 21:11; Admin Dose 16.7 MLS/HR; Start 05/15/16 at 00:10 Aspirin (Aspirin) 300 mg DAILY [place] Last administered on 05/16/16 12:16; Admin Dose 300 MG; Start 05/16/16 at 10:30 Assessment/Plan Chief Complaint/Hosp Course 65 year old male with hx of HTN, HLD, COPD p/w 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 Etiology: Cardio-embolic etiology -maintain normotension -appreciate cardiology consultation for management of afib -speech/swallow reevaluation daily -ASA 300 mg IA, will require anticoagulation due to large size of infarction and high risk for hemorrhagic conversion would wait up to 14 days (05/27/16) -continue frequent neuro checks and continue to watch for signs of herniation: decrease in arousal, changes in pupillary size, development of RIGHT sided weakness should prompt immediate Head CT -Lipitor 80 mg qhs when able to tolerate PO -continue ICU monitoring -DVT ppx- Lovenox -avoid overly sedating medications -PT/OT/Speech daily follow up -will continue to follow, please contact me for any decline in his status Problems: ANDREI RUBIO MD May 16, 2016 15:28
[2016-05-16] MEDS: ATORVASTATIN 40 MG TAB PO SCH (21:00)
[2016-05-17] VITALS (72 sets, daily range): BP systolic 126–206; BP diastolic 66–145; PULSE 47–147; RESP 15–33
[2016-05-17] MEDS: AMIODARONE 900 MG in DEXTROSE 5% 482 ML IV SCH (03:50)
[2016-05-17 06:39] LABS: BASOPHILS % 0.2 % (0.0-2.0); EOSINOPHILS # 0.1 10^3/ul (0.0-0.5); HEMATOCRIT 42.3 % (42.0-52.0); HEMOGLOBIN 14.2 g/dl (14.0-18.0); LYMPHOCYTES # 1.6 10^3/ul (0.8-2.9); LYMPHOCYTES % 12.2 % (15.0-51.0); MEAN CORPUSCULAR HEMOGLOBIN 30.9 pg (29.0-33.0); MEAN CORPUSCULAR HGB CONC 33.7 g/dl (32.0-37.0); MEAN CORPUSCULAR VOLUME 91.9 fl (82.0-101.0); MEAN PLATELET VOLUME 7.9 fl (7.4-10.4); MONOCYTE # 1.3 10^3/ul (0.3-0.9); MONOCYTES % 9.8 % (0.0-11.0); NEUTROPHIL # 10.1 10^3/ul (1.6-7.5); NEUTROPHILS % 76.8 % (39.0-77.0); PLATELET COUNT 261 10^3/UL (140-440); RED CELL DISTRIBUTION WIDTH 14.2 % (11.5-14.5); UNCORRECTED WBC 13.2 10^3/ul (4.8-10.8); WHITE BLOOD COUNT 13.2 10^3/ul (4.8-10.8)
[2016-05-17 06:46] LABS: CONDITION 1
[2016-05-17] MEDS: hydrALAzine 20 MG INJ IV PRN (06:59)
[2016-05-17 07:00] LABS: POTASSIUM 3.8 mmol/L (3.5-5.1)
[2016-05-17 07:03] LABS: CREATININE 0.86 mg/dl (0.61-1.24)
[2016-05-17 07:04] LABS: CALCIUM 8.8 mg/dl (8.4-10.2)
[2016-05-17 08:14] LABS: MAGNESIUM 2.1 mg/dl (1.7-2.5); PHOSPHORUS 3.3 mg/dl (2.5-4.9)
[2016-05-17] MEDS: SALMETEROL/FLUTICASONE 250/50 INHA INH SCH ×2 (09:00→20:49)
[2016-05-17] MEDS ORDERED: LIDOCAINE 1% (MDV) 20 ML INJ SC ONE (09:30)
--- NOTE | 2016-05-17 09:40 | PN ---
Date/Time of Note Date/Time of Note DATE: 05/17/16 TIME: 09:36 Assessment/Plan VTE Prophylaxis VTE Prophylaxis Intervention: SCD's Lines/Catheters IV Catheter Type (from Nrsg): Peripheral IV Central line still needed: No Urinary Cath still in place: Yes ([facility]) Reason Cath still needed: other (indicate) (CVA) Assessment/Plan Assessment/Plan 65-year-old male with: 1. 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 Paroxysmal A fib dx while in ICU. MRI brain confirming Right MCA territory CVA CTA head with occlusion of the mid M1 segment of the right middle cerebral artery with nonvisualization of right remaining distal MCA branches Protecting his airway well and seems to be more awake, but still lethargic and with left hemiparesis. Continue rate control, No anticoagulation x 14 days due to large size of CVA and high risk for hemorrhagic conversion Aggressive PT/OT/ST to continue. 2. Paroxysmal Atrial Fibrillation: on Amiodarone now: was in SR last night, but now again in afib/flutter. 2D echo done and Cardiology following 3. Hypertension. BP stable, but permissive HTN with SBP 140-160 goal 4. Asthma. Continue inhaler and nebulizers prn. Prophylaxis. S/p TPA. Will have him on Pepcid for GI prophylaxis. ASA started per rectum, Schuster in place DISPOSITION: Monitor in ICU with very close monitoring of neurological status. Appreciate Neurology follow up, Cardiology evaluation pending. Subjective 24 Hr Interval Summary Free Text/Dictation Opens eyes and is arousable; responds appropriately, but words are slightly garbled. Exam/Review of Systems Vital Signs Vitals Vital Signs Date Time Temp Pulse Resp B/P Pulse Ox O2 Delivery O2 Flow Rate FiO2 05/17/16 08:45 143 25 174/128 95 Room Air 05/17/16 08:15 100.1 05/16/16 05:34 21 05/15/16 05:00 2.0 Intake and Output 05/16/16 05/16/16 05/17/16 15:00 23:00 07:00 Intake Total 116.9 ml 583.6 ml 230.2 ml Output Total 150 ml 400 ml 175 ml Balance -33.1 ml 183.6 ml 55.2 ml Exam Head: normocephalic Eyes: nl conjunctiva ENMT: nl external ears & nose Neck: supple Respiratory: clear to auscultation Cardiovascular: irregular rhythm Gastrointestinal: soft Musculoskeletal: nl extremities to inspection Extremities: normal pulses Results Result Diagram: 05/17/16 0547 05/17/16 0547 Results 24 hrs Laboratory Tests Test 05/17/16 05:47 Anion Gap 18 H Basophils # 0.0 Basophils % 0.2 Blood Urea Nitrogen 21 H Calcium Level 8.8 Carbon Dioxide Level 25 Chloride Level 104 Creatinine 0.86 Eosinophils # 0.1 Eosinophils % 1.0 Glucose Level 143 Hematocrit 42.3 Hemoglobin 14.2 Lymphocytes # 1.6 Lymphocytes % 12.2 L Magnesium Level 2.1 Mean Corpuscular Hemoglobin 30.9 Mean Corpuscular Hemoglobin Concent 33.7 Mean Corpuscular Volume 91.9 Mean Platelet Volume 7.9 Monocytes # 1.3 H Monocytes % 9.8 Neutrophils # 10.1 H Neutrophils % 76.8 Nucleated Red Blood Cells # 0.0 Nucleated Red Blood Cells % 0.0 Phosphorus Level 3.3 Platelet Count 261 Potassium Level 3.8 Red Blood Count 4.60 L Red Cell Distribution Width 14.2 Sodium Level 143 White Blood Count 13.2 H Medications Medications Current Medications Acetaminophen (Tylenol Tab) 650 mg Q4H PRN PO Temp greater than 99.6F; Start at 16:30 Docusate Sodium (Colace) 100 mg BID PO ; Start 05/13/16 at 21:00 Ondansetron HCl (Zofran Inj) 4 mg Q6H PRN IV NAUSEA AND/OR VOMITING; Start at 16:30 Acetaminophen (Tylenol Tab) 650 mg Q6H PRN PO PAIN LEVEL 1-3 OR FEVER; Start at 16:30 Docusate Sodium (Colace) 100 mg Q12H PRN PO CONSTIPATION; Start 05/13/16 at 16: 30 Magnesium Hydroxide (Milk Of Mag) 30 ml DAILY PRN PO CONSTIPATION; Start at 16:30 Bisacodyl (Dulcolax Supp) 10 mg DAILY PRN [place] CONSTIPATION; Start 05/13/16 at 16 :30 Famotidine (Pepcid Iv) 20 mg Q12 IV Last administered on 05/16/16t 22:47; Admin Dose 20 MG; Start 05/13/16 at 21:00 Salmeterol Xinafoate/ Fluticasone (Advair 250/50 Diskus) 1 inh BID INH ; Start 05/13/16 at 21:00 Atorvastatin Calcium 80 mg 80 mg QHS PO ; Start 05/14/16 at 21:00 Diltiazem HCl (Cardizem-D5W 125 Mg/125 ml Drip) 125 ml @ 5 mls/hr TITRATE IV Last administered on 05/15/16 07:25; Admin Dose 10 MLS/HR; Start 05/14/16 at 22 :30 Hydralazine HCl 10 mg 10 mg Q4H PRN IV ELEVATED BLOOD PRESSURE Last administered on 05/17/16 06:59; Admin Dose 10 MG; Start 05/14/16 at 22:30 Amiodarone HCl/ Dextrose (Cordarone Iv/ D5W) 500 ml @ 0 mls/hr Q0M IV Last administered on 05/17/16 03:50; Admin Dose 0.5 MLS/HR; Start 05/15/16 at 00:10 Aspirin (Aspirin) 300 mg DAILY [place] Last administered on 05/16/16 12:16; Admin Dose 300 MG; Start 05/16/16 at 10:30 ALYSA STUART MD May 17, 2016 09:40
[2016-05-17] MEDS: FAMOTIDINE 20 MG INJ IV SCH ×2 (09:43→20:50)
[2016-05-17] MEDS: DOCUSATE SODIUM 100 MG CAP PO SCH ×2 (09:44→20:50)
[2016-05-17] MEDS: ASPIRIN 300 MG SUPP PR SCH (09:51)
--- NOTE | 2016-05-17 11:42 | RADRPT ---
PROCEDURE: XR Chest. CLINICAL INDICATION: Check PICC line position. TECHNIQUE: Single frontal view. COMPARISON: 05/13/2016. FINDINGS: There is a right arm PICC line with the tip in the right internal jugular vein. The lungs are clear . The heart is enlarged. There is no pleural effusion. There is no pneumothorax. IMPRESSION: 1. Right arm PICC line tip in the right internal jugular vein. 2. Cardiomegaly. 3. Clear lungs. RPTAT: QQ .Sung Pierce MD, MD Date Time Electronically viewed and signed by .Sung Pierce MD, MD on 05/17/2016 11:42 .R/
--- NOTE | 2016-05-17 11:42 | RADRPT ---
PROCEDURE: XR Chest. CLINICAL INDICATION: Check PICC line position. TECHNIQUE: Single frontal view. COMPARISON: Prior study done earlier the same day. FINDINGS: There is a right arm PICC line with the tip in the upper superior vena cava. The lungs are clear. The heart is enlarged. There is no pleural effusion. There is no pneumothorax. IMPRESSION: 1. Right arm PICC line should be advanced approximately 5 cm. 2. Cardiomegaly. 3. Otherwise normal chest radiograph. RPTAT: QQ .Sung Pierce MD, MD Date Time Electronically viewed and signed by .Sung Pierce MD, MD on 05/17/2016 11:42 .R/
--- NOTE | 2016-05-17 11:47 | RADRPT ---
PROCEDURE: XR Chest. CLINICAL INDICATION: Check PICC line position. TECHNIQUE: Single frontal view. COMPARISON: Prior study done earlier the same day. FINDINGS: There is a right arm PICC line with the tip in the lower superior vena cava. The lungs are clear. The heart is enlarged. There is no pleural effusion. There is no pneumothorax. IMPRESSION: 1. Satisfactory position of right arm PICC line. 2. Otherwise normal chest radiograph. RPTAT: QQ .Sung Pierce MD, MD Date Time Electronically viewed and signed by .Sung Pierce MD, MD on 05/17/2016 11:46 .R/
--- NOTE | 2016-05-17 13:35 | RADRPT ---
PROCEDURE: Ultrasound guidance for placement of needle in right upper extremity vein. CLINICAL INDICATION: Venous access. TECHNIQUE: Limited sonography of the right upper extremity was performed. Ultrasound images were recorded and stored in the patient's medical record. COMPARISON: None. FINDINGS: The ultrasound images demonstrate a patent right upper extremity vein. The PICC line was inserted b y the PICC line nurse. IMPRESSION: 1. Ultrasound guidance for a needle placement in a right upper extremity vein. 2. The visualized right upper extremity vein is patent. RPTAT: QQ .Sung Pierce MD, MD Date Time Electronically viewed and signed by .Sung Pierce MD, MD on 05/17/2016 13:35 .R/
--- NOTE | 2016-05-17 16:54 | PN ---
DATE: 05/17/2016 CARDIOLOGY FOLLOWUP SUBJECTIVE: Discussed with the staff, discussed with the patient's family, including [id number]. Rhythm strip was reviewed. The patient remains in sinus rhythm. Has episodes of atrial fibrill ation, and last night for a couple of hours, he was mostly in atrial fibrillation with rapid ventric ular response and converted back to sinus rhythm, sinus bradycardia. No reported chest pain or pres sure. ____on the left on the left side. MEDICATIONS: Reviewed as per medical reconciliation and include: 1. Aspirin rectally. 2. Amiodarone IV. 3. Cardizem p.r.n. 4. Statin on hold, because the patient ____p.o. medication. PHYSICAL EXAMINATION: VITAL SIGNS: Temperature 99.3, heart rate of ____, T-max is 100.2, heart rate of 90, blood pressure 165/____, respiration rate 24, saturating 95%. HEENT: Normocephalic, atraumatic. Pupils are equal. CARDIOVASCULAR: Regular rate and rhythm, systolic murmur. PULMONARY: With no wheezes anteriorly. GASTROINTESTINAL: Obese, soft, nontender. EXTREMITIES: With positive lower extremity edema. NEUROLOGIC: Awake with left-sided weakness. DIAGNOSTIC DATA: Echocardiogram showed ejection fraction of 60%. LABORATORY: Sodium 143, potassium 3.8, BUN of 21, creatinine 0.86, glucose of 143. WBC of 13.2, he moglobin of 14.2, platelets of 265. ASSESSMENT AND PLAN: 1. Right MCA acute cerebrovascular accident. 2. Paroxysmal atrial fibrillation. 3. Hypertension. 4. History of pulmonary disease and asthma. RECOMMENDATIONS: We will continue with amiodarone drip for now. Aspirin will be continued. We jay l allow for permissive hypertension for now. Lovenox will be started for DVT prophylaxis as long as okay with neurology. We will continue with the ICU care. More than 35 minutes critical care time was spent in management of this patient excluding any proced ures. Dictated By: COLIN ROSALES/ANGELIQUE Conf#: [id number] DID#: [id number]
--- NOTE | 2016-05-17 17:46 | RADRPT ---
PROCEDURE: XR Chest. CLINICAL INDICATION: Shortness of breath. TECHNIQUE: Single frontal view. COMPARISON: Prior study done earlier the same day. FINDINGS: The right arm PICC line remains in satisfactory position. The lungs are clear. The heart size is normal. There is no pleural effusion. There is no pneumothorax. IMPRESSION: 1. Right arm PICC line. 2. Clear lungs. RPTAT: QQ .Sung Pierce MD, MD Date Time Electronically viewed and signed by .Sung Pierce MD, on 05/17/2016 17:46 .R/
[2016-05-17] MEDS: ATORVASTATIN 40 MG TAB PO SCH (20:50)
--- NOTE | 2016-05-17 23:48 | CONS ---
Date/Time of Note Date/Time of Note DATE: 05/17/16 TIME: 23:45 Consult Date/Type/Reason Admit Date/Time May 13, 2016 at 16:42 Initial Consult Date 05/14/16 Type of Consultation: Neurology Reason for Consultation Right MCA stroke Ordering Provider: NICO BUCHANAN Subjective awake and alert per family, following commands passed speech/swallow low grade fever overnight Objective Vital Signs Date Time Temp Pulse Resp B/P Pulse Ox O2 Delivery O2 Flow Rate FiO2 05/17/16 20:15 82 23 95 05/17/16 19:45 167/100 05/17/16 19:00 98.9 05/17/16 18:45 Room Air 05/16/16 05:34 21 05/15/16 05:00 2.0 Intake and Output 05/16/16 05/16/16 05/17/16 15:00 23:00 07:00 Intake Total 116.9 ml 583.6 ml 246.9 ml Output Total 150 ml 400 ml 195 ml Balance -33.1 ml 183.6 ml 51.9 ml Drowsy, able to open his eyes to voice right gaze preference, speaks few phrases in [place] with family unable to cooperate with commands due to lethargy CN: BECCA, right gaze preference, left UMN facial Motor: right arm and leg 5/5 purposeful movements left arm- withdraws to noxious flexor posturing left leg- withdraws to noxious in plane of the bed seems purposeful 2/5 strength Sensory grimaces to noxious stimuli in left arm and leg Results/Medications Result Diagram: 05/17/16 0547 05/17/16 0547 Results 24 hrs Laboratory Tests Test 05/17/16 05:47 Anion Gap 18 H Basophils # 0.0 Basophils % 0.2 Blood Urea Nitrogen 21 H Calcium Level 8.8 Carbon Dioxide Level 25 Chloride Level 104 Creatinine 0.86 Eosinophils # 0.1 Eosinophils % 1.0 Glucose Level 143 Hematocrit 42.3 Hemoglobin 14.2 Lymphocytes # 1.6 Lymphocytes % 12.2 L Magnesium Level 2.1 Mean Corpuscular Hemoglobin 30.9 Mean Corpuscular Hemoglobin Concent 33.7 Mean Corpuscular Volume 91.9 Mean Platelet Volume 7.9 Monocytes # 1.3 H Monocytes % 9.8 Neutrophils # 10.1 H Neutrophils % 76.8 Nucleated Red Blood Cells # 0.0 Nucleated Red Blood Cells % 0.0 Phosphorus Level 3.3 Platelet Count 261 Potassium Level 3.8 Red Blood Count 4.60 L Red Cell Distribution Width 14.2 Sodium Level 143 White Blood Count 13.2 H Medications Current Medications Acetaminophen (Tylenol Tab) 650 mg Q4H PRN PO Temp greater than 99.6F; Start at 16:30 Docusate Sodium (Colace) 100 mg BID PO Last administered on 05/17/16 20:50; Admin Dose 100 MG; Start 05/13/16 at 21:00 Ondansetron HCl (Zofran Inj) 4 mg Q6H PRN IV NAUSEA AND/OR VOMITING; Start at 16:30 Acetaminophen (Tylenol Tab) 650 mg Q6H PRN PO PAIN LEVEL 1-3 OR FEVER; Start at 16:30 Docusate Sodium (Colace) 100 mg Q12H PRN PO CONSTIPATION Last administered on 09:43; Admin Dose 100 MG; Start 05/13/16 at 16:30 Magnesium Hydroxide (Milk Of Mag) 30 ml DAILY PRN PO CONSTIPATION; Start at 16:30 Bisacodyl (Dulcolax Supp) 10 mg DAILY PRN [place] CONSTIPATION; Start 05/13/16 at 16 :30 Famotidine (Pepcid Iv) 20 mg Q12 IV Last administered on 05/17/16 20:50; Admin Dose 20 MG; Start 05/13/16 at 21:00 Salmeterol Xinafoate/ Fluticasone (Advair 250/50 Diskus) 1 inh BID INH ; Start 05/13/16 at 21:00 Atorvastatin Calcium (Lipitor) 80 mg QHS PO Last administered on 05/17/16 20: 50; Admin Dose 80 MG; Start 05/14/16 at 21:00 Hydralazine HCl 10 mg 10 mg Q4H PRN IV ELEVATED BLOOD PRESSURE Last administered on 05/17/16 06:59; Admin Dose 10 MG; Start 05/14/16 at 22:30 Amiodarone HCl/ Dextrose (Cordarone Iv/ D5W) 500 ml @ 0 mls/hr Q0M IV Last administered on 05/17/16 03:50; Admin Dose 0.5 MLS/HR; Start 05/15/16 at 00:10 Aspirin (Aspirin) 300 mg DAILY [place] Last administered on 05/17/16t 09:51; Admin Dose 300 MG; Start 05/16/16 at 10:30 Enoxaparin Sodium (Lovenox) 30 mg DAILY [place] ; Start 05/18/16 at 09:00 Assessment/Plan Chief Complaint/Hosp Course 65 year old male with hx of HTN, HLD, COPD p/w 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 Etiology: Cardio-embolic etiology -maintain normotension -appreciate cardiology consultation for management of afib, continue ASA for now , will require AC in 2 weeks from stroke (05/27/16) -speech/swallow reevaluation daily -continue frequent neuro checks and continue to watch for signs of herniation: decrease in arousal, changes in pupillary size, development of RIGHT sided weakness should prompt immediate Head CT -Lipitor 80 mg qhs -DVT ppx- Lovenox -avoid overly sedating medications -PT/OT evaluation -downgrade from ICU when off drips will follow Problems: ANDREI RUBIO MD May 17, 2016 23:48
[2016-05-18] VITALS (14 sets, daily range): BP systolic 120–190; BP diastolic 69–95; PULSE 46–135; RESP 16–22
[2016-05-18] MEDS: hydrALAzine 20 MG INJ IV PRN (01:36)
[2016-05-18] MEDS: ACETAMINOPHEN 325 MG TAB PO PRN ×2 (03:19→15:01)
[2016-05-18 07:31] LABS: BASOPHILS % 0.4 % (0.0-2.0); EOSINOPHILS # 0.2 10^3/ul (0.0-0.5); EOSINOPHILS % 1.4 % (0.0-7.0); HEMATOCRIT 41.4 % (42.0-52.0); HEMOGLOBIN 14.1 g/dl (14.0-18.0); LYMPHOCYTES # 1.7 10^3/ul (0.8-2.9); LYMPHOCYTES % 12.8 % (15.0-51.0); MEAN CORPUSCULAR HGB CONC 34.1 g/dl (32.0-37.0); MEAN CORPUSCULAR VOLUME 91.1 fl (82.0-101.0); MEAN PLATELET VOLUME 8.1 fl (7.4-10.4); MONOCYTE # 1.2 10^3/ul (0.3-0.9); MONOCYTES % 9.5 % (0.0-11.0); NEUTROPHIL # 9.9 10^3/ul (1.6-7.5); NEUTROPHILS % 75.9 % (39.0-77.0); PLATELET COUNT 275 10^3/UL (140-440); RED BLOOD COUNT 4.55 10^6/ul (4.70-6.10); RED CELL DISTRIBUTION WIDTH 14.3 % (11.5-14.5)
[2016-05-18 07:35] LABS: POTASSIUM 3.8 mmol/L (3.5-5.1)
[2016-05-18 07:38] LABS: CREATININE 0.96 mg/dl (0.61-1.24)
[2016-05-18 07:39] LABS: CHOL/HDL RATIO 4.8 RATIO; CONDITION 1; MAGNESIUM 2.2 mg/dl (1.7-2.5)
--- NOTE | 2016-05-18 08:04 | RADRPT ---
PROCEDURE: XR Elbow. CLINICAL INDICATION: Right elbow swelling and pain TECHNIQUE: Single AP view of the right elbow performed. COMPARISON: None. FINDINGS: There is no evidence of acute fracture on this single AP view. Cannot assess for joint effusion. T here is subcutaneous edema noted. IMPRESSION: 1. Limited study with only a single AP view provided. Cannot assess for joint effusion. Recommend t hree-view right elbow radiographs as clinically indicated. 2. No definite acute fracture noting subcutaneous soft tissue swelling. RPTAT: UU .Bobby Villa MD, MD Date Time Electronically viewed and signed by .Bobby Villa MD, MD on 05/18/2016 08:03 .K/
[2016-05-18 08:11] LABS: THYROID STIMULATING HORMONE 2.14 MIU/L (0.465-4.680)
[2016-05-18] MEDS: SALMETEROL/FLUTICASONE 250/50 INHA INH SCH ×2 (09:49→22:28)
[2016-05-18] MEDS: DOCUSATE SODIUM 100 MG CAP PO SCH ×2 (09:49→22:27)
[2016-05-18] MEDS: FAMOTIDINE 20 MG INJ IV SCH ×2 (09:50→22:27)
[2016-05-18] MEDS: ENOXAPARIN 30 MG/0.3 ML SYG SC SCH (09:57)
[2016-05-18] MEDS: DILTIAZEM 25 MG INJ IV PRN ×3 (10:00→14:56)
[2016-05-18] MEDS: ASPIRIN 300 MG SUPP PR SCH (13:22)
--- NOTE | 2016-05-18 14:11 | RADRPT ---
PROCEDURE: XR Elbow. CLINICAL INDICATION: Right elbow pain TECHNIQUE: AP, lateral and oblique views of the right elbow performed. COMPARISON: Radiographs of the right elbow same day FINDINGS: There is no evidence of acute fracture. There is diffuse subcutaneous soft tissue swelling. There is no significant joint effusion. Soft tissues otherwise grossly unremarkable. IMPRESSION: 1. No radiographic evidence of acute osseous abnormality or significant joint effusion. 2. Diffuse subcutaneous soft tissue swelling. RPTAT: UU .Bobby Villa MD, MD Date Time Electronically viewed and signed by .Bobby Villa MD, on 05/18/2016 14:10 .K/
--- NOTE | 2016-05-18 14:35 | PN ---
Date/Time of Note Date/Time of Note DATE: 05/18/16 TIME: 14:28 Assessment/Plan VTE Prophylaxis VTE Prophylaxis Intervention: SCD's Lines/Catheters IV Catheter Type (from Nrs): PICC Line Central line still needed: Yes Urinary Cath still in place: No Reason Cath still needed: pres ulcer contaminated by urine Assessment/Plan Assessment/Plan 65-year-old male with: 1. 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 Paroxysmal A fib continues. MRI brain confirming Right MCA territory CVA CTA head with occlusion of the mid M1 segment of the right middle cerebral artery with nonvisualization of right remaining distal MCA branches He is more awake and appears to more engaged with family members. Continue rate control, No anticoagulation x 14 days due to large size of CVA and high risk for hemorrhagic conversion Aggressive PT/OT/ST to continue. PT re-evaluation in the AM. 2. Paroxysmal Atrial Fibrillation: on Amiodarone now: was in SR last night, but now again in afib/flutter. 2D echo done and Cardiology following 3. Hypertension. BP stable, but permissive HTN with SBP 140-160 goal 4. Asthma. Stable. Continue inhaler and nebulizers prn. Daughter requesting symbicort over Advair. Symbicort not available in the formulary, will try another delivery device, such as a spacer. 5. RUE swelling: likely secondary to peripheral IV infiltration and superficial phlebitis. Will elevate RUE and add ice packs. x-rays do not reveal and joint infection. Prophylaxis. S/p TPA. Will have him on Pepcid for GI prophylaxis. ASA for stroke prophylaxis. Schuster in place Subjective 24 Hr Interval Summary Free Text/Dictation More awake today. reaching for objects with his right hand. Exam/Review of Systems Vital Signs Vitals Vital Signs Date Time Temp Pulse Resp B/P Pulse Ox O2 Delivery O2 Flow Rate FiO2 05/18/16 12:02 135 05/18/16 11:24 98.8 18 140/91 95 05/18/16 01:18 Room Air 05/16/16 05:34 21 05/15/16 05:00 2.0 Intake and Output 05/17/16 05/17/16 05/18/16 15:00 23:00 07:00 Intake Total 313.6 ml 131.8 ml 275 ml Output Total 220 ml 90 ml 400 ml Balance 93.6 ml 41.8 ml -125 ml Exam Constitutional: alert, oriented Psych: no complaints Head: normocephalic Eyes: nl conjunctiva ENMT: nl external ears & nose Neck: supple Respiratory: clear to auscultation Cardiovascular: irregular rhythm Gastrointestinal: soft Extremities: other (swelling in RUE) Results Result Diagram: 05/18/16 0635 05/18/16 0635 Results 24 hrs Laboratory Tests Test 05/18/16 06:35 Anion Gap 17 H Basophils # 0.0 Basophils % 0.4 Blood Urea Nitrogen 26 H Calcium Level 9.0 Carbon Dioxide Level 27 Chloride Level 103 Cholesterol Level 200 Cholesterol/HDL Ratio 4.8 Creatinine 0.96 Eosinophils # 0.2 Eosinophils % 1.4 Free Thyroxine 0.96 Glucose Level 131 HDL Cholesterol 41 Hematocrit 41.4 L Hemoglobin 14.1 LDL Cholesterol, Calculated 138 Lymphocytes # 1.7 Lymphocytes % 12.8 L Magnesium Level 2.2 Mean Corpuscular Hemoglobin 31.0 Mean Corpuscular Hemoglobin Concent 34.1 Mean Corpuscular Volume 91.1 Mean Platelet Volume 8.1 Monocytes # 1.2 H Monocytes % 9.5 Neutrophils # 9.9 H Neutrophils % 75.9 Nucleated Red Blood Cells # 0.0 Nucleated Red Blood Cells % 0.0 Platelet Count 275 Potassium Level 3.8 Red Blood Count 4.55 L Red Cell Distribution Width 14.3 Sodium Level 143 Thyroid Stimulating Hormone (TSH) 2.140 Triglycerides Level 107 White Blood Count 13.0 H Medications Medications Current Medications Acetaminophen (Tylenol Tab) 650 mg Q4H PRN PO Temp greater than 99.6F Last administered on 05/18/16 03:19; Admin Dose 650 MG; Start 05/13/16 at 16:30 Docusate Sodium (Colace) 100 mg BID PO Last administered on 05/18/16 09:49; Admin Dose 100 MG; Start 05/13/16 at 21:00 Ondansetron HCl (Zofran Inj) 4 mg Q6H PRN IV NAUSEA AND/OR VOMITING; Start at 16:30 Acetaminophen (Tylenol Tab) 650 mg Q6H PRN PO PAIN LEVEL 1-3 OR FEVER; Start at 16:30 Docusate Sodium (Colace) 100 mg Q12H PRN PO CONSTIPATION Last administered on 09:43; Admin Dose 100 MG; Start 05/13/16 at 16:30 Magnesium Hydroxide (Milk Of Mag) 30 ml DAILY PRN PO CONSTIPATION; Start at 16:30 Bisacodyl (Dulcolax Supp) 10 mg DAILY PRN [place] CONSTIPATION; Start 05/13/16 at 16 :30 Famotidine (Pepcid Iv) 20 mg Q12 IV Last administered on 05/18/16 09:50; Admin Dose 20 MG; Start 05/13/16 at 21:00 Salmeterol Xinafoate/ Fluticasone (Advair 250/50 Diskus) 1 inh BID INH Last administered on 05/18/16 09:49; Admin Dose 1 INH; Start 05/13/16 at 21:00 Atorvastatin Calcium (Lipitor) 80 mg QHS PO Last administered on 05/17/16 20: 50; Admin Dose 80 MG; Start 05/14/16 at 21:00 Hydralazine HCl 10 mg 10 mg Q4H PRN IV ELEVATED BLOOD PRESSURE Last administered on 05/18/16 01:36; Admin Dose 10 MG; Start 05/14/16 at 22:30 Amiodarone HCl/ Dextrose (Cordarone Iv/ D5W) 500 ml @ 0 mls/hr Q0M IV Last administered on 05/17/16 03:50; Admin Dose 0.5 MLS/HR; Start 05/15/16 at 00:10 Aspirin (Aspirin) 300 mg DAILY [place] Last administered on 05/18/16 13:22; Admin Dose 300 MG; Start 05/16/16 at 10:30 Enoxaparin Sodium (Lovenox) 30 mg DAILY SC Last administered on 05/18/16 09:57 ; Admin Dose 30 MG; Start 05/18/16 at 09:00 Diltiazem HCl (Cardizem Iv) 10 mg Q1H PRN IV HR>120 Last administered on 13:23; Admin Dose 10 MG; Start 05/18/16 at 10:00 ALYSA STUART MD May 18, 2016 14:35
[2016-05-18] MEDS ORDERED: DIGOXIN 500 MCG INJ IV ONE (18:00)
--- NOTE | 2016-05-18 18:34 | PN ---
DATE: 05/18/2016 CARDIOLOGY FOLLOWUP SUBJECTIVE: The patient converted back to atrial fibrillation overnight. Intermittently was tachyc ardic this morning. Currently, his blood pressure has improved. Discussed with the patient's daugh ter at the bedside, discussed with the staff. Rhythm strip was reviewed. The patient himself denie s any palpitation. MEDICATIONS: Reviewed as per medical reconciliation, personally reviewed. PHYSICAL EXAMINATION: VITAL SIGNS: Temperature 98.9, heart rate of 107, T-max is 100.1, respiration rate of 18, blood pre ssure 140/79. HEENT: Normocephalic, atraumatic. Obese gentleman. Pupils are equal. CARDIOVASCULAR: Irregularly irregular. Systolic murmur. PULMONARY: With no wheezes. GASTROINTESTINAL: Soft, nontender. EXTREMITIES: With positive lower extremity edema. NEUROLOGIC: Awake with left-sided weakness. PSYCHIATRIC: Appears to be calm. LABORATORY DATA: WBC of 13, hemoglobin 14.1, platelets of 275. Sodium 143, potassium 3.8, BUN of 2 6, creatinine 0.96, glucose 131. LDL is 138, HDL 41. TSH 2.1. ASSESSMENT AND PLAN: 1. Atrial fibrillation, paroxysmal. 2. Status post cerebrovascular accident. 3. Dyslipidemia. 4. Hypertension. 5. History of smoking. RECOMMENDATIONS: I will give a dose of digoxin IV now to control the heart rate better. I will sta rt the patient on Cardizem p.o. We will continue the rest of his cardiac care. Dr. Barrios will res ume his cardiac care tomorrow. Dictated By: COLIN AL MD AV/NTS Conf#: [id number] DID#: [id number] CC: NICO BUCHANAN MD; ALYSA STUART MD;*EndCC*
[2016-05-18] MEDS: ATORVASTATIN 40 MG TAB PO SCH (22:22)
[2016-05-18] MEDS: DILTIAZEM 30 MG TAB PO SCH (22:27)
[2016-05-19] VITALS (15 sets, daily range): BP systolic 123–136; BP diastolic 76–89; PULSE 48–136; RESP 16–20
[2016-05-19 06:30] LABS: BASOPHILS % 0.3 % (0.0-2.0); EOSINOPHILS # 0.4 10^3/ul (0.0-0.5); HEMATOCRIT 42.6 % (42.0-52.0); HEMOGLOBIN 14.4 g/dl (14.0-18.0); LYMPHOCYTES % 16.7 % (15.0-51.0); MEAN CORPUSCULAR HEMOGLOBIN 31.1 pg (29.0-33.0); MEAN CORPUSCULAR HGB CONC 33.8 g/dl (32.0-37.0); MEAN CORPUSCULAR VOLUME 92.2 fl (82.0-101.0); MEAN PLATELET VOLUME 8.3 fl (7.4-10.4); MONOCYTE # 1.1 10^3/ul (0.3-0.9); MONOCYTES % 9.4 % (0.0-11.0); NEUTROPHIL # 8.6 10^3/ul (1.6-7.5); NEUTROPHILS % 70.6 % (39.0-77.0); PLATELET COUNT 277 10^3/UL (140-440); RED BLOOD COUNT 4.62 10^6/ul (4.70-6.10); RED CELL DISTRIBUTION WIDTH 13.9 % (11.5-14.5); UNCORRECTED WBC 12.2 10^3/ul (4.8-10.8); WHITE BLOOD COUNT 12.2 10^3/ul (4.8-10.8)
[2016-05-19 06:33] LABS: CONDITION 1
[2016-05-19 06:37] LABS: POTASSIUM 3.9 mmol/L (3.5-5.1)
[2016-05-19 06:40] LABS: CREATININE 0.85 mg/dl (0.61-1.24)
[2016-05-19 06:41] LABS: CALCIUM 8.8 mg/dl (8.4-10.2)
[2016-05-19] MEDS: SALMETEROL/FLUTICASONE 250/50 INHA INH SCH ×2 (09:00→21:12)
[2016-05-19] MEDS: ASPIRIN 300 MG SUPP PR SCH (10:57)
[2016-05-19] MEDS: DILTIAZEM 30 MG TAB PO SCH ×3 (10:58→17:40)
[2016-05-19] MEDS: FAMOTIDINE 20 MG INJ IV SCH ×2 (10:58→21:17)
[2016-05-19] MEDS: DOCUSATE SODIUM 100 MG CAP PO SCH ×2 (10:58→21:12)
[2016-05-19] MEDS: ENOXAPARIN 30 MG/0.3 ML SYG SC SCH (11:14)
--- NOTE | 2016-05-19 12:28 | CONS ---
Date/Time of Note Date/Time of Note DATE: 05/19/16 TIME: 12:24 Consult Date/Type/Reason Admit Date/Time May 13, 2016 at 16:42 Initial Consult Date 05/14/16 Type of Consultation: Neurology Reason for Consultation Right MCA CVA Ordering Provider: NICO BUCHANAN Subjective more awake today and much more alert tolerating dysphagia diet well Objective Vital Signs Date Time Temp Pulse Resp B/P Pulse Ox O2 Delivery O2 Flow Rate FiO2 05/19/16 11:33 98.2 64 16 131/86 94 05/19/16 05:43 21 05/18/16 15:00 Room Air Intake and Output 05/18/16 05/18/16 05/19/16 15:00 23:00 07:00 Intake Total 600 ml 120 ml Output Total 500 ml 700 ml Balance 100 ml -580 ml awake and alert today right gaze preference, speaks few phrases in [place]ian with family severe left neglect CN: BECCA, right gaze preference can attempt to cross past midline to voice, left UMN facial Right arm appears swollen today, erythematous able to move anti-gravity Right Leg intact strength left arm- withdraws to noxious flexor posturing only no sensation left leg- no withdrawal to noxious stimuli Sensory decreased left sided sensation Results/Medications Result Diagram: 05/19/16 0545 05/19/16 0545 Results 24 hrs Laboratory Tests Test 05/19/16 05:45 Anion Gap 18 H Basophils # 0.0 Basophils % 0.3 Blood Urea Nitrogen 26 H Calcium Level 8.8 Carbon Dioxide Level 26 Chloride Level 101 Creatinine 0.85 Eosinophils # 0.4 Eosinophils % 3.0 Glucose Level 136 Hematocrit 42.6 Hemoglobin 14.4 Lymphocytes # 2.0 Lymphocytes % 16.7 Mean Corpuscular Hemoglobin 31.1 Mean Corpuscular Hemoglobin Concent 33.8 Mean Corpuscular Volume 92.2 Mean Platelet Volume 8.3 Monocytes # 1.1 H Monocytes % 9.4 Neutrophils # 8.6 H Neutrophils % 70.6 Nucleated Red Blood Cells # 0.0 Nucleated Red Blood Cells % 0.0 Platelet Count 277 Potassium Level 3.9 Red Blood Count 4.62 L Red Cell Distribution Width 13.9 Sodium Level 141 White Blood Count 12.2 H Medications Current Medications Acetaminophen (Tylenol Tab) 650 mg Q4H PRN PO Temp greater than 99.6F Last administered on 05/18/16 15:01; Admin Dose 650 MG; Start 05/13/16 at 16:30 Docusate Sodium (Colace) 100 mg BID PO Last administered on 05/19/16 10:58; Admin Dose 100 MG; Start 05/13/16 at 21:00 Ondansetron HCl (Zofran Inj) 4 mg Q6H PRN IV NAUSEA AND/OR VOMITING; Start at 16:30 Acetaminophen (Tylenol Tab) 650 mg Q6H PRN PO PAIN LEVEL 1-3 OR FEVER; Start at 16:30 Docusate Sodium (Colace) 100 mg Q12H PRN PO CONSTIPATION Last administered on 09:43; Admin Dose 100 MG; Start 05/13/16 at 16:30 Magnesium Hydroxide (Milk Of Mag) 30 ml DAILY PRN PO CONSTIPATION; Start at 16:30 Bisacodyl (Dulcolax Supp) 10 mg DAILY PRN [place] CONSTIPATION; Start 05/13/16 at 16 :30 Famotidine (Pepcid Iv) 20 mg Q12 IV Last administered on 05/19/16 10:58; Admin Dose 20 MG; Start 05/13/16 at 21:00 Salmeterol Xinafoate/ Fluticasone (Advair 250/50 Diskus) 1 inh BID INH Last administered on 05/19/16 09:00; Admin Dose 1 INH; Start 05/13/16 at 21:00 Atorvastatin Calcium (Lipitor) 80 mg QHS PO Last administered on 05/18/16 22: 22; Admin Dose 80 MG; Start 05/14/16 at 21:00 Hydralazine HCl 10 mg 10 mg Q4H PRN IV ELEVATED BLOOD PRESSURE Last administered on 05/18/16 01:36; Admin Dose 10 MG; Start 05/14/16 at 22:30 Amiodarone HCl/ Dextrose (Cordarone Iv/ D5W) 500 ml @ 0 mls/hr Q0M IV Last administered on 05/17/16 03:50; Admin Dose 0.5 MLS/HR; Start 05/15/16 at 00:10 Aspirin (Aspirin) 300 mg DAILY [place] Last administered on 05/19/16 10:57; Admin Dose 300 MG; Start 05/16/16 at 10:30 Enoxaparin Sodium (Lovenox) 30 mg DAILY [place] Last administered on 05/19/16 11:14 ; Admin Dose 30 MG; Start 05/18/16 at 09:00 Diltiazem HCl (Cardizem Iv) 10 mg Q1H PRN IV HR>120 Last administered on 14:56; Admin Dose 10 MG; Start 05/18/16 at 10:00 Diltiazem HCl (Cardizem) 30 mg TID PO Last administered on 05/19/16 10:58; Admin Dose 30 MG; Start 05/18/16 at 21:00 Assessment/Plan Chief Complaint/Hosp Course 65 year old male with hx of HTN, HLD, COPD p/w 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 Etiology: Cardio-embolic etiology -maintain normotension -appreciate cardiology consultation for management of afib, continue ASA for now , will require AC in 2 weeks from stroke (05/27/16) may initiate Apixaban 5 mg BID starting on 05/27 will need to discontinue aspirin 81 mg on this date -Lipitor 80 mg qhs -DVT ppx- Lovenox -avoid overly sedating medications -monitor for right arm cellulitis -PT/OT evaluation, initiate discharge planning to rehab Problems: ANDREI RUBIO MD May 19, 2016 12:28
--- NOTE | 2016-05-19 12:45 | PN ---
Date/Time of Note Date/Time of Note DATE: 05/19/16 TIME: 12:43 Assessment/Plan VTE Prophylaxis VTE Prophylaxis Intervention: SCD's Lines/Catheters IV Catheter Type (from Nrsg): PICC Line Central line still needed: Yes (for Iv access ) Urinary Cath still in place: No Reason Cath still needed: other (indicate) (condom cath ) Assessment/Plan Assessment/Plan 65-year-old male with: 1. 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 Paroxysmal A fib. Now on Tele. MRI brain confirming Right MCA territory CVA CTA head with occlusion of the mid M1 segment of the right middle cerebral artery with nonvisualization of right remaining distal MCA branches Protecting his airway well and seems to be more awake, but still lethargic and with left hemiparesis. Continue rate control, No anticoagulation x 14 days due to large size of CVA and high risk for hemorrhagic conversion. On ASA for now Aggressive PT/OT/ST to continue. 2. Paroxysmal Atrial Fibrillation: on Amiodarone and prn Cardizem. 2D echo done and Dr Barrios following. 3. Hypertension. BP stable. 4. Asthma. Continue inhaler and nebulizers prn. 5. Infiltrated IV site, IV was removed and patient now with PICC line, cold compress and elevation 6. Urine cx polymicrobial with no symptoms ... Repeat UA and urine cx and abx will be started if need Prophylaxis. S/p TPA. Pepcid for GI prophylaxis. Lovenox, prophylactic dose for DVT ppx and ASA for secondary stroke prevention. Schuster/Condom cath in place DISPOSITION: On telemetry now and continuing PT/OT/ST agressive Appreciate Neurology and Cardiology follow up. Subjective 24 Hr Interval Summary Free Text/Dictation Patient more easily arousable and interactive Taking and tolerating po Afebrile and WBC coming down PT/OT/ST on going Exam/Review of Systems Vital Signs Vitals Vital Signs Date Time Temp Pulse Resp B/P Pulse Ox O2 Delivery O2 Flow Rate FiO2 05/19/16 11:33 98.2 64 16 131/86 94 05/19/16 05:43 21 05/18/16 15:00 Room Air Intake and Output 05/18/16 05/18/16 05/19/16 15:00 23:00 07:00 Intake Total 600 ml 120 ml Output Total 500 ml 700 ml Balance 100 ml -580 ml Exam Constitutional: alert, oriented (x2), other (still with periods of lethargy ) Respiratory: clear to auscultation, normal air movement Cardiovascular: nl pulses, other (but in/out of A fib), regular rate and rhythm Gastrointestinal: non-tender, soft Musculoskeletal: nl extremities to inspection Extremities: normal pulses Neurological: focal weakness (left hemiparesis ), lethargic, nl speech (when awake ), other (right facial droop ) Results Result Diagram: 05/19/1654405/19/16544 Results 24 hrs Laboratory Tests Test 05/19/16 05:45 Anion Gap 18 H Basophils # 0.0 Basophils % 0.3 Blood Urea Nitrogen 26 H Calcium Level 8.8 Carbon Dioxide Level 26 Chloride Level 101 Creatinine 0.85 Eosinophils # 0.4 Eosinophils % 3.0 Glucose Level 136 Hematocrit 42.6 Hemoglobin 14.4 Lymphocytes # 2.0 Lymphocytes % 16.7 Mean Corpuscular Hemoglobin 31.1 Mean Corpuscular Hemoglobin Concent 33.8 Mean Corpuscular Volume 92.2 Mean Platelet Volume 8.3 Monocytes # 1.1 H Monocytes % 9.4 Neutrophils # 8.6 H Neutrophils % 70.6 Nucleated Red Blood Cells # 0.0 Nucleated Red Blood Cells % 0.0 Platelet Count 277 Potassium Level 3.9 Red Blood Count 4.62 L Red Cell Distribution Width 13.9 Sodium Level 141 White Blood Count 12.2 H Medications Medications Current Medications Acetaminophen (Tylenol Tab) 650 mg Q4H PRN PO Temp greater than 99.6F Last administered on 05/18/16 15:01; Admin Dose 650 MG; Start 05/13/16 at 16:30 Docusate Sodium (Colace) 100 mg BID PO Last administered on 05/19/16 10:58; Admin Dose 100 MG; Start 05/13/16 at 21:00 Ondansetron HCl (Zofran Inj) 4 mg Q6H PRN IV NAUSEA AND/OR VOMITING; Start at 16:30 Acetaminophen (Tylenol Tab) 650 mg Q6H PRN PO PAIN LEVEL 1-3 OR FEVER; Start at 16:30 Docusate Sodium (Colace) 100 mg Q12H PRN PO CONSTIPATION Last administered on 09:43; Admin Dose 100 MG; Start 05/13/16 at 16:30 Magnesium Hydroxide (Milk Of Mag) 30 ml DAILY PRN PO CONSTIPATION; Start at 16:30 Bisacodyl (Dulcolax Supp) 10 mg DAILY PRN [place] CONSTIPATION; Start 05/13/16 at 16 :30 Famotidine (Pepcid Iv) 20 mg Q12 IV Last administered on 05/19/16 10:58; Admin Dose 20 MG; Start 05/13/16 at 21:00 Salmeterol Xinafoate/ Fluticasone (Advair 250/50 Diskus) 1 inh BID INH Last administered on 05/19/16 09:00; Admin Dose 1 INH; Start 05/13/16 at 21:00 Atorvastatin Calcium (Lipitor) 80 mg QHS PO Last administered on 05/18/16 22: 22; Admin Dose 80 MG; Start 05/14/16 at 21:00 Hydralazine HCl 10 mg 10 mg Q4H PRN IV ELEVATED BLOOD PRESSURE Last administered on 05/18/16 01:36; Admin Dose 10 MG; Start 05/14/16 at 22:30 Amiodarone HCl/ Dextrose (Cordarone Iv/ D5W) 500 ml @ 0 mls/hr Q0M IV Last administered on 05/17/16 03:50; Admin Dose 0.5 MLS/HR; Start 05/15/16 at 00:10 Aspirin (Aspirin) 300 mg DAILY [place] Last administered on 05/19/16 10:57; Admin Dose 300 MG; Start 05/16/16 at 10:30 Enoxaparin Sodium (Lovenox) 30 mg DAILY [place] Last administered on 05/19/16 11:14 ; Admin Dose 30 MG; Start 05/18/16 at 09:00 Diltiazem HCl (Cardizem Iv) 10 mg Q1H PRN IV HR>120 Last administered on 14:56; Admin Dose 10 MG; Start 05/18/16 at 10:00 Diltiazem HCl (Cardizem) 30 mg TID PO Last administered on 05/19/16 10:58; Admin Dose 30 MG; Start 05/18/16 at 21:00 NICO BUCHANAN May 19, 2016 12:45
[2016-05-19] MEDS ORDERED: DIGOXIN 500 MCG INJ IV ONE (16:00)
--- NOTE | 2016-05-19 16:01 | CONS ---
Date/Time of Note Date/Time of Note DATE: 05/19/16 TIME: 15:59 Assessment/Plan Assessment/Plan Additional Assessment/Plan Right MCA CVA Paroxysmal atrial fibrillation Preserved ejection fraction Hypertension Dyslipidemia -Patient with paroxysmal atrial fibrillation, able to take p.o., switch amiodarone to oral, 1 dose of digoxin, increased frequency of Cardizem and switch to long-acting when heart rate remains stable. Consultation Date/Type/Reason Admit Date/Time May 13, 2016 at 16:42 Initial Consult Date 05/14/16 Type of Consultation: cv Referring Provider: NICO BUCHANAN 24 HR Interval Summary Free Text/Dictation Patient more awake, denies chest pain, palpitations or shortness of breath Exam/Review of Systems Vital Signs Vitals Vital Signs Date Time Temp Pulse Resp B/P Pulse Ox O2 Delivery O2 Flow Rate FiO2 05/19/16 15:30 52 05/19/16 15:22 97.6 16 128/77 96 05/19/16 05:43 21 05/18/16 15:00 Room Air Intake and Output 05/18/16 05/18/16 05/19/16 15:00 23:00 07:00 Intake Total 600 ml 120 ml Output Total 500 ml 700 ml Balance 100 ml -580 ml Exam Follows commands Constitutional: alert, oriented Head: normocephalic Neck: supple Respiratory: clear to auscultation, normal air movement Cardiovascular: irregular rhythm, other (S1-S2 heard) Gastrointestinal: bowel sounds, non-tender, soft Extremities: edema (Trace) Results Result Diagram: 05/19/16 0545 05/19/16 0545 Results 24 hrs Laboratory Tests Test 05/19/16 05:45 Anion Gap 18 H Basophils # 0.0 Basophils % 0.3 Blood Urea Nitrogen 26 H Calcium Level 8.8 Carbon Dioxide Level 26 Chloride Level 101 Creatinine 0.85 Eosinophils # 0.4 Eosinophils % 3.0 Glucose Level 136 Hematocrit 42.6 Hemoglobin 14.4 Lymphocytes # 2.0 Lymphocytes % 16.7 Mean Corpuscular Hemoglobin 31.1 Mean Corpuscular Hemoglobin Concent 33.8 Mean Corpuscular Volume 92.2 Mean Platelet Volume 8.3 Monocytes # 1.1 H Monocytes % 9.4 Neutrophils # 8.6 H Neutrophils % 70.6 Nucleated Red Blood Cells # 0.0 Nucleated Red Blood Cells % 0.0 Platelet Count 277 Potassium Level 3.9 Red Blood Count 4.62 L Red Cell Distribution Width 13.9 Sodium Level 141 White Blood Count 12.2 H Medications Medications Current Medications Acetaminophen (Tylenol Tab) 650 mg Q4H PRN PO Temp greater than 99.6F Last administered on 05/18/16 15:01; Admin Dose 650 MG; Start 05/13/16 at 16:30 Docusate Sodium (Colace) 100 mg BID PO Last administered on 05/19/16 10:58; Admin Dose 100 MG; Start 05/13/16 at 21:00 Ondansetron HCl (Zofran Inj) 4 mg Q6H PRN IV NAUSEA AND/OR VOMITING; Start at 16:30 Acetaminophen (Tylenol Tab) 650 mg Q6H PRN PO PAIN LEVEL 1-3 OR FEVER; Start at 16:30 Docusate Sodium (Colace) 100 mg Q12H PRN PO CONSTIPATION Last administered on 09:43; Admin Dose 100 MG; Start 05/13/16 at 16:30 Magnesium Hydroxide (Milk Of Mag) 30 ml DAILY PRN PO CONSTIPATION; Start at 16:30 Bisacodyl (Dulcolax Supp) 10 mg DAILY PRN [place] CONSTIPATION; Start 05/13/16 at 16 :30 Famotidine (Pepcid Iv) 20 mg Q12 IV Last administered on 05/19/16 10:58; Admin Dose 20 MG; Start 05/13/16 at 21:00 Salmeterol Xinafoate/ Fluticasone (Advair 250/50 Diskus) 1 inh BID INH Last administered on 05/19/16 09:00; Admin Dose 1 INH; Start 05/13/16 at 21:00 Atorvastatin Calcium (Lipitor) 80 mg QHS PO Last administered on 05/18/16 22: 22; Admin Dose 80 MG; Start 05/14/16 at 21:00 Hydralazine HCl 10 mg 10 mg Q4H PRN IV ELEVATED BLOOD PRESSURE Last administered on 05/18/16 01:36; Admin Dose 10 MG; Start 05/14/16 at 22:30 Amiodarone HCl/ Dextrose (Cordarone Iv/ D5W) 500 ml @ 0 mls/hr Q0M IV Last administered on 05/17/16 03:50; Admin Dose 0.5 MLS/HR; Start 05/15/16 at 00:10 Aspirin (Aspirin) 300 mg DAILY [place] Last administered on 05/19/16 10:57; Admin Dose 300 MG; Start 05/16/16 at 10:30 Enoxaparin Sodium (Lovenox) 30 mg DAILY [place] Last administered on 05/19/16 11:14 ; Admin Dose 30 MG; Start 05/18/16 at 09:00 Diltiazem HCl (Cardizem Iv) 10 mg Q1H PRN IV HR>120 Last administered on 14:56; Admin Dose 10 MG; Start 05/18/16 at 10:00 Diltiazem HCl (Cardizem) 30 mg TID PO Last administered on 05/19/16 13:01; Admin Dose 30 MG; Start 05/18/16 at 21:00 Angel Barrios DO May 19, 2016 16:01
[2016-05-19] MEDS: ASPIRIN 81 MG TAB PO SCH (17:40)
[2016-05-19] MEDS: ATORVASTATIN 40 MG TAB PO SCH (21:12)
[2016-05-19] MEDS: AMIODARONE 200 MG TAB PO SCH (21:17)
[2016-05-19] MEDS: ACETAMINOPHEN 325 MG TAB PO PRN (21:50)
[2016-05-20] VITALS (11 sets, daily range): BP systolic 127–146; BP diastolic 65–78; PULSE 40–76; RESP 16–20
[2016-05-20] MEDS: DILTIAZEM 30 MG TAB PO SCH ×5 (00:43→22:25)
[2016-05-20 07:46] LABS: POTASSIUM 3.7 mmol/L (3.5-5.1)
[2016-05-20 07:48] LABS: CREATININE 0.85 mg/dl (0.61-1.24); MAGNESIUM 2.1 mg/dl (1.7-2.5)
[2016-05-20 07:49] LABS: CALCIUM 8.8 mg/dl (8.4-10.2)
[2016-05-20 08:07] LABS: BASOPHIL # 0.1 10^3/ul (0.0-0.1); BASOPHILS % 0.6 % (0.0-2.0); EOSINOPHILS # 0.5 10^3/ul (0.0-0.5); EOSINOPHILS % 5.2 % (0.0-7.0); HEMATOCRIT 40.1 % (42.0-52.0); HEMOGLOBIN 13.5 g/dl (14.0-18.0); LYMPHOCYTES # 1.7 10^3/ul (0.8-2.9); MEAN CORPUSCULAR HEMOGLOBIN 31.1 pg (29.0-33.0); MEAN CORPUSCULAR HGB CONC 33.7 g/dl (32.0-37.0); MEAN CORPUSCULAR VOLUME 92.3 fl (82.0-101.0); MEAN PLATELET VOLUME 8.4 fl (7.4-10.4); MONOCYTE # 0.8 10^3/ul (0.3-0.9); MONOCYTES % 8.4 % (0.0-11.0); NEUTROPHIL # 6.3 10^3/ul (1.6-7.5); NEUTROPHILS % 67.8 % (39.0-77.0); PLATELET COUNT 275 10^3/UL (140-440); RED BLOOD COUNT 4.34 10^6/ul (4.70-6.10); RED CELL DISTRIBUTION WIDTH 13.8 % (11.5-14.5); UNCORRECTED WBC 9.3 10^3/ul (4.8-10.8); WHITE BLOOD COUNT 9.3 10^3/ul (4.8-10.8)
[2016-05-20 08:08] LABS: CONDITION 1
[2016-05-20] MEDS: SALMETEROL/FLUTICASONE 250/50 INHA INH SCH ×2 (09:00→21:00)
[2016-05-20] MEDS: DOCUSATE SODIUM 100 MG CAP PO SCH ×2 (09:00→22:24)
[2016-05-20] MEDS: ASPIRIN 81 MG TAB PO SCH (09:06)
[2016-05-20] MEDS: AMIODARONE 200 MG TAB PO SCH ×2 (09:07→22:25)
[2016-05-20] MEDS: ENOXAPARIN 30 MG/0.3 ML SYG SC SCH (09:19)
[2016-05-20] MEDS: FAMOTIDINE 20 MG INJ IV SCH ×2 (09:55→22:23)
--- NOTE | 2016-05-20 12:03 | PN ---
Date/Time of Note Date/Time of Note DATE: 05/20/16 TIME: 11:45 Assessment/Plan VTE Prophylaxis VTE Prophylaxis Intervention: LMWH Lines/Catheters IV Catheter Type (from Nrs): PICC Line Central line still needed: Yes (for IV access ) Urinary Cath still in place: No Reason Cath still needed: other (indicate) (condom catheter ) Assessment/Plan Assessment/Plan 65-year-old male with: 1. 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 Paroxysmal A fib. Now on Tele. MRI brain confirming Right MCA territory CVA CTA head with occlusion of the mid M1 segment of the right middle cerebral artery with nonvisualization of right remaining distal MCA branches Protecting his airway well and seems to be more awake, but still lethargic and with left hemiparesis. Continue rate control, No anticoagulation x 14 days due to large size of CVA and high risk for hemorrhagic conversion. On ASA for now Aggressive PT/OT/ST to continue. 2. Paroxysmal Atrial Fibrillation: on Amiodarone and prn Cardizem. 2D echo done and Dr Barrios following. 3. Hypertension. BP stable. 4. Asthma. Continue inhaler and nebulizers prn. 5. Infiltrated IV site, IV was removed and patient now with PICC line, cold compress and elevation, still with edema and some pain, check doppler today r/o DVT 6. Urine cx with E coli and Strep, sensitive to Levaquin, but no symptoms ... Repeat UA and urine cx pending and Levaquin x 3 days until repeat cx back. Prophylaxis. S/p TPA. Pepcid for GI prophylaxis. Lovenox, prophylactic dose for DVT ppx and ASA for secondary stroke prevention. Condom cath in place DISPOSITION: On telemetry now and continuing PT/OT/ST aggressive Appreciate Neurology and Cardiology follow up. Subjective 24 Hr Interval Summary Free Text/Dictation Patient doing better today Still with RUE edema and some erythema right wrist WBC back to normal, Afebrile Doppler RUE pending today Urine cx positive 05/17 but patient asymptomatic, repeat Urine cx pending Exam/Review of Systems Vital Signs Vitals Vital Signs Date Time Temp Pulse Resp B/P Pulse Ox O2 Delivery O2 Flow Rate FiO2 05/20/16 11:35 98.6 70 20 127/65 98 05/19/16 05:43 21 05/18/16 15:00 Room Air Exam Constitutional: alert (much more awake today), oriented Respiratory: clear to auscultation, normal air movement Cardiovascular: nl pulses, regular rate and rhythm Gastrointestinal: non-tender, soft Musculoskeletal: swelling (RUE ) Extremities: normal pulses, other (RUE edema, and right wrist erythema ) Neurological: CAREER COACH II-XII intact (minimal facial droop ), focal weakness (left hemiparesis ), other (much more awake, speech better with less receptive and expressive aphasia) Results Result Diagram: 05/20/16 0710 05/20/16 0710 Results 24 hrs Laboratory Tests Test 05/20/16 07:10 Anion Gap 17 H Basophils # 0.1 Basophils % 0.6 Blood Urea Nitrogen 26 H Calcium Level 8.8 Carbon Dioxide Level 27 Chloride Level 101 Creatinine 0.85 Eosinophils # 0.5 Eosinophils % 5.2 Glucose Level 137 Hematocrit 40.1 L Hemoglobin 13.5 L Lymphocytes # 1.7 Lymphocytes % 18.0 Magnesium Level 2.1 Mean Corpuscular Hemoglobin 31.1 Mean Corpuscular Hemoglobin Concent 33.7 Mean Corpuscular Volume 92.3 Mean Platelet Volume 8.4 Monocytes # 0.8 Monocytes % 8.4 Neutrophils # 6.3 Neutrophils % 67.8 Nucleated Red Blood Cells # 0.0 Nucleated Red Blood Cells % 0.0 Phosphorus Level 4.0 Platelet Count 275 Potassium Level 3.7 Red Blood Count 4.34 L Red Cell Distribution Width 13.8 Sodium Level 141 White Blood Count 9.3 # Medications Medications Current Medications Acetaminophen (Tylenol Tab) 650 mg Q4H PRN PO Temp greater than 99.6F Last administered on 05/19/16 21:50; Admin Dose 650 MG; Start 05/13/16 at 16:30 Docusate Sodium (Colace) 100 mg BID PO Last administered on 05/19/16 21:12; Admin Dose 100 MG; Start 05/13/16 at 21:00 Ondansetron HCl (Zofran Inj) 4 mg Q6H PRN IV NAUSEA AND/OR VOMITING; Start at 16:30 Acetaminophen (Tylenol Tab) 650 mg Q6H PRN PO PAIN LEVEL 1-3 OR FEVER; Start at 16:30 Docusate Sodium (Colace) 100 mg Q12H PRN PO CONSTIPATION Last administered on 09:43; Admin Dose 100 MG; Start 05/13/16 at 16:30 Magnesium Hydroxide (Milk Of Mag) 30 ml DAILY PRN PO CONSTIPATION; Start at 16:30 Bisacodyl (Dulcolax Supp) 10 mg DAILY PRN [place] CONSTIPATION; Start 05/13/16 at 16 :30 Famotidine (Pepcid Iv) 20 mg Q12 IV Last administered on 05/20/16 09:55; Admin Dose 20 MG; Start 05/13/16 at 21:00 Salmeterol Xinafoate/ Fluticasone (Advair 250/50 Diskus) 1 inh BID INH Last administered on 05/19/16 21:12; Admin Dose 1 INH; Start 05/13/16 at 21:00 Atorvastatin Calcium (Lipitor) 80 mg QHS PO Last administered on 05/19/16 21: 12; Admin Dose 80 MG; Start 05/14/16 at 21:00 Hydralazine HCl (Apresoline) 10 mg Q4H PRN IV ELEVATED BLOOD PRESSURE Last administered on 05/18/16 01:36; Admin Dose 10 MG; Start 05/14/16 at 22:30 Enoxaparin Sodium (Lovenox) 30 mg DAILY SC Last administered on 05/20/16 09:19 ; Admin Dose 30 MG; Start 05/18/16 at 09:00 Diltiazem HCl (Cardizem Iv) 10 mg Q1H PRN IV HR>120 Last administered on 14:56; Admin Dose 10 MG; Start 05/18/16 at 10:00 Diltiazem HCl (Cardizem) 30 mg Q6 PO Last administered on 05/20/16 06:00; Admin Dose 30 MG; Start 05/19/16 at 18:00 Aspirin (Aspirin) 81 mg DAILY PO Last administered on 05/20/16 09:06; Admin Dose 81 MG; Start 05/19/16 at 16:00 Amiodarone HCl (Cordarone) 400 mg BID PO Last administered on 05/20/16 09:07; Admin Dose 400 MG; Start 05/19/16 at 21:00 NICO BUCHANAN May 20, 2016 11:55
[2016-05-20] MEDS: LEVOFLOXACIN 250 MG TAB PO SCH (14:41)
--- NOTE | 2016-05-20 19:09 | RADRPT ---
PROCEDURE: Right upper extremity venous ultrasound CLINICAL INDICATION: Right arm pain and swelling, deep venous thrombosis TECHNIQUE: Moraes scale, color doppler, spectral doppler ultrasound imaging of the venous system of the right upper extremity. Augmentation maneuvers were utilized. COMPARISON: No prior studies are available for comparison. FINDINGS: RIGHT: Internal jugular vein: Patent. Subclavian vein: Patent. Axillary vein: Patent. Brachial vein: Patent. Basilic vein: Thrombosed throughout within the forearm Cephalic vein: Patent. Radial vein: Patent. Ulnar vein: Patent. IMPRESSION: No evidence of deep venous thrombosis within the right upper extremity. Superficial venous thrombosis of the basilic vein within the right forearm RPTAT: AADD .Brian Vasquez MD, MD Date Time Electronically viewed and signed by .Brian Vasquez MD, MD on 05/20/2016 19:08 .B/
[2016-05-20] MEDS: ATORVASTATIN 40 MG TAB PO SCH (22:23)
[2016-05-21] VITALS (13 sets, daily range): BP systolic 110–154; BP diastolic 73–82; PULSE 41–75; RESP 18–20
[2016-05-21] MEDS: LEVOFLOXACIN 250 MG TAB PO SCH (06:07)
[2016-05-21] MEDS: DILTIAZEM 30 MG TAB PO SCH ×3 (06:08→18:24)
[2016-05-21 07:58] LABS: MAGNESIUM 1.9 mg/dl (1.7-2.5); PHOSPHORUS 3.3 mg/dl (2.5-4.9)
[2016-05-21 09:34] LABS: POTASSIUM 3.9 mmol/L (3.5-5.1)
[2016-05-21 09:37] LABS: CREATININE 0.82 mg/dl (0.61-1.24)
[2016-05-21 09:38] LABS: CALCIUM 8.9 mg/dl (8.4-10.2)
[2016-05-21 09:47] LABS: BASOPHILS % 0.4 % (0.0-2.0); EOSINOPHILS # 0.5 10^3/ul (0.0-0.5); EOSINOPHILS % 4.6 % (0.0-7.0); HEMATOCRIT 39.8 % (42.0-52.0); HEMOGLOBIN 13.5 g/dl (14.0-18.0); LYMPHOCYTES % 19.6 % (15.0-51.0); MEAN CORPUSCULAR HEMOGLOBIN 31.2 pg (29.0-33.0); MEAN CORPUSCULAR HGB CONC 33.9 g/dl (32.0-37.0); MEAN PLATELET VOLUME 8.7 fl (7.4-10.4); MONOCYTE # 0.8 10^3/ul (0.3-0.9); MONOCYTES % 8.1 % (0.0-11.0); NEUTROPHIL # 6.7 10^3/ul (1.6-7.5); NEUTROPHILS % 67.3 % (39.0-77.0); PLATELET COUNT 284 10^3/UL (140-440); RED BLOOD COUNT 4.33 10^6/ul (4.70-6.10); RED CELL DISTRIBUTION WIDTH 13.3 % (11.5-14.5)
[2016-05-21 09:49] LABS: CONDITION 1
[2016-05-21] MEDS: SALMETEROL/FLUTICASONE 250/50 INHA INH SCH ×2 (10:03→20:42)
[2016-05-21] MEDS: FAMOTIDINE 20 MG INJ IV SCH ×2 (10:04→20:42)
[2016-05-21] MEDS: ASPIRIN 81 MG TAB PO SCH (10:04)
[2016-05-21] MEDS: DOCUSATE SODIUM 100 MG CAP PO SCH ×2 (10:04→20:43)
[2016-05-21] MEDS: AMIODARONE 200 MG TAB PO SCH ×2 (10:05→20:45)
--- NOTE | 2016-05-21 10:50 | PN ---
Date/Time of Note Date/Time of Note DATE: 05/21/16 TIME: 10:20 Assessment/Plan VTE Prophylaxis VTE Prophylaxis Intervention: SCD's Lines/Catheters IV Catheter Type (from Nrs): PICC Line Central line still needed: Yes (for IV access ) Urinary Cath still in place: No Assessment/Plan Assessment/Plan 65-year-old male with: 1. 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 Paroxysmal A fib. Now on Tele. MRI brain confirming Right MCA territory CVA CTA head with occlusion of the mid M1 segment of the right middle cerebral artery with nonvisualization of right remaining distal MCA branches Protecting his airway well and seems to be more awake, but still lethargic and with left hemiparesis. Continue rate control, No anticoagulation x 14 days due to large size of CVA and high risk for hemorrhagic conversion. On ASA for now Aggressive PT/OT/ST to continue. 2. Paroxysmal Atrial Fibrillation: on Amiodarone and prn Cardizem. Has been in [facility] lately 2D echo done and Dr Barrios following. 3. Hypertension. BP stable. 4. Asthma. Continue inhaler and nebulizers prn. 5. Infiltrated IV site, IV was removed and patient now with PICC line, cold compress and elevation, Doppler positive with Superficial venous thrombosis of the basilic vein within the right forearm No need to anticoagulate for now, symptomatic treatment and repeat Doppler in 1 week. 6. Urine cx with E coli and Strep, sensitive to Levaquin, but no symptoms ... Repeat UA and urine cx pending and Levaquin x 3 days until repeat cx back. Prophylaxis. S/p TPA. Pepcid for GI prophylaxis. Lovenox, prophylactic dose for DVT ppx and ASA for secondary stroke prevention. Condom cath in place DISPOSITION: On telemetry now and continuing PT/OT/ST aggressive Appreciate Neurology and Cardiology follow up. Subjective 24 Hr Interval Summary Free Text/Dictation Patient somnolent but easily arousable Labs wnl and patient with episode of confusion overnight Finding of Superficial venous thrombosis of the basilic vein within the right forearmon Doppler but no need to anticoagulate given large CVA Exam/Review of Systems Vital Signs Vitals Vital Signs Date Time Temp Pulse Resp B/P Pulse Ox O2 Delivery O2 Flow Rate FiO2 05/21/16 08:03 75 05/21/16 07:27 98.0 18 154/77 98 05/19/16 05:43 21 05/18/16 15:00 Room Air Intake and Output 05/20/16 05/20/16 05/21/16 15:00 23:00 07:00 Intake Total 200 ml 650 ml 400 ml Output Total 200 ml Balance 200 ml 450 ml 400 ml Exam Constitutional: oriented, other (somnolent vika easily arousable ), well developed Respiratory: clear to auscultation, normal air movement Cardiovascular: nl pulses, regular rate and rhythm Gastrointestinal: non-tender, soft Musculoskeletal: nl extremities to inspection Extremities: normal pulses, other Neurological: NEON SIGN MAKER II-XII intact, confused (overnight ), focal weakness (left hemiperesis ), lethargic (and somnolent ) Results Result Diagram: 05/21/16 0650 05/21/16 0650 Results 24 hrs Laboratory Tests Test 05/21/16 06:50 Anion Gap 16 Basophils # 0.0 Basophils % 0.4 Blood Urea Nitrogen 20 Calcium Level 8.9 Carbon Dioxide Level 28 Chloride Level 100 Creatinine 0.82 Eosinophils # 0.5 Eosinophils % 4.6 Glucose Level 131 Hematocrit 39.8 L Hemoglobin 13.5 L Lymphocytes # 2.0 Lymphocytes % 19.6 Magnesium Level 1.9 Mean Corpuscular Hemoglobin 31.2 Mean Corpuscular Hemoglobin Concent 33.9 Mean Corpuscular Volume 92.0 Mean Platelet Volume 8.7 Monocytes # 0.8 Monocytes % 8.1 Neutrophils # 6.7 Neutrophils % 67.3 Nucleated Red Blood Cells # 0.0 Nucleated Red Blood Cells % 0.0 Phosphorus Level 3.3 Platelet Count 284 Potassium Level 3.9 Red Blood Count 4.33 L Red Cell Distribution Width 13.3 Sodium Level 140 White Blood Count 10.0 Medications Medications Current Medications Acetaminophen (Tylenol Tab) 650 mg Q4H PRN PO Temp greater than 99.6F Last administered on 05/19/16 21:50; Admin Dose 650 MG; Start 05/13/16 at 16:30 Docusate Sodium (Colace) 100 mg BID PO Last administered on 05/20/16 22:24; Admin Dose 100 MG; Start 05/13/16 at 21:00 Ondansetron HCl (Zofran Inj) 4 mg Q6H PRN IV NAUSEA AND/OR VOMITING; Start at 16:30 Acetaminophen (Tylenol Tab) 650 mg Q6H PRN PO PAIN LEVEL 1-3 OR FEVER; Start at 16:30 Docusate Sodium (Colace) 100 mg Q12H PRN PO CONSTIPATION Last administered on 09:43; Admin Dose 100 MG; Start 05/13/16 at 16:30 Magnesium Hydroxide (Milk Of Mag) 30 ml DAILY PRN PO CONSTIPATION; Start at 16:30 Bisacodyl (Dulcolax Supp) 10 mg DAILY PRN [place] CONSTIPATION; Start 05/13/16 at 16 :30 Famotidine (Pepcid Iv) 20 mg Q12 IV Last administered on 05/20/16 22:23; Admin Dose 20 MG; Start 05/13/16 at 21:00 Salmeterol Xinafoate/ Fluticasone (Advair 250/50 Diskus) 1 inh BID INH Last administered on 05/20/16 21:00; Admin Dose 1 INH; Start 05/13/16 at 21:00 Atorvastatin Calcium (Lipitor) 80 mg QHS PO Last administered on 05/20/16 22: 23; Admin Dose 80 MG; Start 05/14/16 at 21:00 Hydralazine HCl (Apresoline) 10 mg Q4H PRN IV ELEVATED BLOOD PRESSURE Last administered on 05/18/16 01:36; Admin Dose 10 MG; Start 05/14/16 at 22:30 Enoxaparin Sodium (Lovenox) 30 mg DAILY SC Last administered on 05/20/16 09:19 ; Admin Dose 30 MG; Start 05/18/16 at 09:00 Diltiazem HCl (Cardizem Iv) 10 mg Q1H PRN IV HR>120 Last administered on 14:56; Admin Dose 10 MG; Start 05/18/16 at 10:00 Diltiazem HCl (Cardizem) 30 mg Q6 PO Last administered on 05/21/16 06:08; Admin Dose 30 MG; Start 05/19/16 at 18:00 Aspirin (Aspirin) 81 mg DAILY PO Last administered on 05/20/16 09:06; Admin Dose 81 MG; Start 05/19/16 at 16:00 Amiodarone HCl (Cordarone) 400 mg BID PO Last administered on 05/20/16 22:25; Admin Dose 400 MG; Start 05/19/16 at 21:00 Levofloxacin (Levaquin) 250 mg DAILY@06 PO Last administered on 05/21/16 06:07 ; Admin Dose 250 MG; Start 05/20/16 at 14:00; Stop 05/22/16 at 06:01 Procedures Procedures PROCEDURE: Right upper extremity venous ultrasound CLINICAL INDICATION: Right arm pain and swelling, deep venous thrombosis TECHNIQUE: Moraes scale, color doppler, spectral doppler ultrasound imaging of the venous system of the right upper extremity. Augmentation maneuvers were utilized. COMPARISON: No prior studies are available for comparison. FINDINGS: RIGHT: Internal jugular vein: Patent. Subclavian vein: Patent. Axillary vein: Patent. Brachial vein: Patent. Basilic vein: Thrombosed throughout within the forearm Cephalic vein: Patent. Radial vein: Patent. Ulnar vein: Patent. IMPRESSION: No evidence of deep venous thrombosis within the right upper extremity. Superficial venous thrombosis of the basilic vein within the right forearm NICO BUCHANAN May 21, 2016 10:33
[2016-05-21] MEDS: ENOXAPARIN 30 MG/0.3 ML SYG SC SCH (10:55)
--- NOTE | 2016-05-21 13:33 | PN ---
Date/Time of Note Date/Time of Note DATE: 05/21/16 TIME: 13:32 Assessment/Plan VTE Prophylaxis VTE Prophylaxis Intervention: SCD's Lines/Catheters IV Catheter Type (from Nrsg): PICC Line Central line still needed: No Urinary Cath still in place: No Assessment/Plan Assessment/Plan Right MCA CVA Paroxysmal atrial fibrillation Preserved ejection fraction Hypertension Dyslipidemia -Patient with paroxysmal atrial fibrillation, able to take p.o., switch amiodarone to oral, increased frequency of Cardizem and switch to long-acting when heart rate remains stable. Subjective 24 Hr Interval Summary Free Text/Dictation the patient with noc ahge Exam/Review of Systems Vital Signs Vitals Vital Signs Date Time Temp Pulse Resp B/P Pulse Ox O2 Delivery O2 Flow Rate FiO2 05/21/16 12:11 67 05/21/16 11:27 97.6 18 116/75 96 05/21/16 10:00 21 05/18/16 15:00 Room Air Intake and Output 05/20/16 05/20/16 05/21/16 15:00 23:00 07:00 Intake Total 200 ml 650 ml 400 ml Output Total 200 ml Balance 200 ml 450 ml 400 ml Results Result Diagram: 05/21/16 0650 05/21/16 0650 Results 24 hrs Laboratory Tests Test 05/21/16 06:50 05/21/16 12:44 Anion Gap 16 Basophils # 0.0 Basophils % 0.4 Blood Urea Nitrogen 20 Calcium Level 8.9 Carbon Dioxide Level 28 Chloride Level 100 Creatinine 0.82 Eosinophils # 0.5 Eosinophils % 4.6 Glucose Level 131 Hematocrit 39.8 L Hemoglobin 13.5 L Lymphocytes # 2.0 Lymphocytes % 19.6 Magnesium Level 1.9 Mean Corpuscular Hemoglobin 31.2 Mean Corpuscular Hemoglobin Concent 33.9 Mean Corpuscular Volume 92.0 Mean Platelet Volume 8.7 Monocytes # 0.8 Monocytes % 8.1 Neutrophils # 6.7 Neutrophils % 67.3 Nucleated Red Blood Cells # 0.0 Nucleated Red Blood Cells % 0.0 Phosphorus Level 3.3 Platelet Count 284 Potassium Level 3.9 Red Blood Count 4.33 L Red Cell Distribution Width 13.3 Sodium Level 140 White Blood Count 10.0 Bedside Glucose 125 Medications Medications Current Medications Acetaminophen (Tylenol Tab) 650 mg Q4H PRN PO Temp greater than 99.6F Last administered on 05/19/16 21:50; Admin Dose 650 MG; Start 05/13/16 at 16:30 Docusate Sodium (Colace) 100 mg BID PO Last administered on 05/21/16 10:04; Admin Dose 100 MG; Start 05/13/16 at 21:00 Ondansetron HCl (Zofran Inj) 4 mg Q6H PRN IV NAUSEA AND/OR VOMITING; Start at 16:30 Acetaminophen (Tylenol Tab) 650 mg Q6H PRN PO PAIN LEVEL 1-3 OR FEVER; Start at 16:30 Docusate Sodium (Colace) 100 mg Q12H PRN PO CONSTIPATION Last administered on 09:43; Admin Dose 100 MG; Start 05/13/16 at 16:30 Magnesium Hydroxide (Milk Of Mag) 30 ml DAILY PRN PO CONSTIPATION; Start at 16:30 Bisacodyl (Dulcolax Supp) 10 mg DAILY PRN [place] CONSTIPATION; Start 05/13/16 at 16 :30 Famotidine (Pepcid Iv) 20 mg Q12 IV Last administered on 05/21/16 10:04; Admin Dose 20 MG; Start 05/13/16 at 21:00 Salmeterol Xinafoate/ Fluticasone (Advair 250/50 Diskus) 1 inh BID INH Last administered on 05/21/16 10:03; Admin Dose 1 INH; Start 05/13/16 at 21:00 Atorvastatin Calcium (Lipitor) 80 mg QHS PO Last administered on 05/20/16 22: 23; Admin Dose 80 MG; Start 05/14/16 at 21:00 Hydralazine HCl (Apresoline) 10 mg Q4H PRN IV ELEVATED BLOOD PRESSURE Last administered on 05/18/16 01:36; Admin Dose 10 MG; Start 05/14/16 at 22:30 Enoxaparin Sodium (Lovenox) 30 mg DAILY SC Last administered on 05/21/16 10:55 ; Admin Dose 30 MG; Start 05/18/16 at 09:00 Diltiazem HCl (Cardizem Iv) 10 mg Q1H PRN IV HR>120 Last administered on 14:56; Admin Dose 10 MG; Start 05/18/16 at 10:00 Diltiazem HCl (Cardizem) 30 mg Q6 PO Last administered on 05/21/16 13:12; Admin Dose 30 MG; Start 05/19/16 at 18:00 Aspirin (Aspirin) 81 mg DAILY PO Last administered on 05/21/16 10:04; Admin Dose 81 MG; Start 05/19/16 at 16:00 Amiodarone HCl (Cordarone) 400 mg BID PO Last administered on 05/21/16 10:05; Admin Dose 400 MG; Start 05/19/16 at 21:00 Levofloxacin (Levaquin) 250 mg DAILY@06 PO Last administered on 05/21/16 06:07 ; Admin Dose 250 MG; Start 05/20/16 at 14:00; Stop 05/22/16 at 06:01 CHRISTINE MELÉNDEZ MD May 21, 2016 13:33
[2016-05-21] MEDS: ATORVASTATIN 40 MG TAB PO SCH (20:42)
[2016-05-22] VITALS (12 sets, daily range): BP systolic 128–140; BP diastolic 76–84; PULSE 38–102; RESP 16–20
[2016-05-22] MEDS: DILTIAZEM 30 MG TAB PO SCH ×2 (05:42)
[2016-05-22] MEDS: LEVOFLOXACIN 250 MG TAB PO SCH (05:42)
[2016-05-22 07:19] LABS: PHOSPHORUS 3.5 mg/dl (2.5-4.9)
[2016-05-22 07:25] LABS: POTASSIUM 4.4 mmol/L (3.5-5.1)
[2016-05-22 07:28] LABS: CREATININE 0.74 mg/dl (0.61-1.24)
[2016-05-22 08:02] LABS: BASOPHIL # 0.1 10^3/ul (0.0-0.1); BASOPHILS % 0.6 % (0.0-2.0); EOSINOPHILS # 0.4 10^3/ul (0.0-0.5); EOSINOPHILS % 4.8 % (0.0-7.0); HEMATOCRIT 39.7 % (42.0-52.0); LYMPHOCYTES # 1.7 10^3/ul (0.8-2.9); LYMPHOCYTES % 18.7 % (15.0-51.0); MEAN CORPUSCULAR HEMOGLOBIN 30.4 pg (29.0-33.0); MEAN CORPUSCULAR HGB CONC 32.7 g/dl (32.0-37.0); MEAN PLATELET VOLUME 10.5 fl (7.4-10.4); MONOCYTE # 0.7 10^3/ul (0.3-0.9); MONOCYTES % 8.1 % (0.0-11.0); NEUTROPHILS % 67.1 % (39.0-77.0); PLATELET COUNT 307 10^3/UL (140-415); RED BLOOD COUNT 4.27 10^6/ul (4.70-6.10); RED CELL DISTRIBUTION WIDTH 12.8 % (11.5-14.5)
[2016-05-22] MEDS: ASPIRIN 81 MG TAB PO SCH (09:20)
[2016-05-22] MEDS: SALMETEROL/FLUTICASONE 250/50 INHA INH SCH ×2 (09:20→20:35)
[2016-05-22] MEDS: DOCUSATE SODIUM 100 MG CAP PO SCH ×2 (09:20→20:35)
[2016-05-22] MEDS: FAMOTIDINE 20 MG INJ IV SCH ×2 (09:20→20:35)
[2016-05-22] MEDS: AMIODARONE 200 MG TAB PO SCH ×2 (09:21→20:37)
[2016-05-22] MEDS: ENOXAPARIN 30 MG/0.3 ML SYG SC SCH (09:44)
--- NOTE | 2016-05-22 11:10 | CONS ---
Date/Time of Note Date/Time of Note DATE: 05/22/16 TIME: 11:07 Assessment/Plan Assessment/Plan Additional Assessment/Plan Right MCA CVA Paroxysmal atrial fibrillation, currently sinus rhythm Preserved ejection fraction Hypertension Dyslipidemia -Decrease dose of amiodarone, change Cardizem to long-acting. Patient with evidence of thrombophlebitis near IV site which was removed. Consider warm compresses. No anticoagulation for paroxysmal atrial fibrillation at the current time secondary to recent large CVA. Consultation Date/Type/Reason Admit Date/Time May 13, 2016 at 16:42 Initial Consult Date 05/14/16 Type of Consultation: cv Referring Provider: NICO BUCHANAN 24 HR Interval Summary Free Text/Dictation Patient seen and examined, no dizziness or palpitations Exam/Review of Systems Vital Signs Vitals Vital Signs Date Time Temp Pulse Resp B/P Pulse Ox O2 Delivery O2 Flow Rate FiO2 05/22/16 10:57 98.3 63 19 139/83 95 05/21/16 17:12 21 05/18/16 15:00 Room Air Intake and Output 05/21/16 05/21/16 05/22/16 15:00 23:00 07:00 Intake Total 550 ml 200 ml Balance 550 ml 200 ml Exam Sleeping but arousable, no apparent distress, family at bedside Head: normocephalic Neck: supple Respiratory: other (Coarse breath sounds bilaterally, no wheezing) Cardiovascular: other (S1-S2 heard), regular rate and rhythm Gastrointestinal: bowel sounds, non-tender, soft Extremities: edema Results Result Diagram: 05/22/16 0635 05/22/16 0635 Results 24 hrs Laboratory Tests Test 05/21/16 12:44 05/22/16 06:35 Bedside Glucose 125 Anion Gap 16 Basophils # 0.1 Basophils % 0.6 Blood Urea Nitrogen 20 Calcium Level 9.0 Carbon Dioxide Level 30 Chloride Level 99 Creatinine 0.74 Eosinophils # 0.4 Eosinophils % 4.8 Glucose Level 121 Hematocrit 39.7 L Hemoglobin 13.0 L Lymphocytes # 1.7 Lymphocytes % 18.7 Magnesium Level 2.0 Mean Corpuscular Hemoglobin 30.4 Mean Corpuscular Hemoglobin Concent 32.7 Mean Corpuscular Volume 93.0 Mean Platelet Volume 10.5 #H Monocytes # 0.7 Monocytes % 8.1 Neutrophils # 6.0 Neutrophils % 67.1 Nucleated Red Blood Cells # 0.0 Nucleated Red Blood Cells % 0.0 Phosphorus Level 3.5 Platelet Count 307 Potassium Level 4.4 Red Blood Count 4.27 L Red Cell Distribution Width 12.8 Sodium Level 141 White Blood Count 9.0 Medications Medications Current Medications Acetaminophen (Tylenol Tab) 650 mg Q4H PRN PO Temp greater than 99.6F Last administered on 05/19/16 21:50; Admin Dose 650 MG; Start 05/13/16 at 16:30 Docusate Sodium (Colace) 100 mg BID PO Last administered on 05/22/16 09:20; Admin Dose 100 MG; Start 05/13/16 at 21:00 Ondansetron HCl (Zofran Inj) 4 mg Q6H PRN IV NAUSEA AND/OR VOMITING; Start at 16:30 Acetaminophen (Tylenol Tab) 650 mg Q6H PRN PO PAIN LEVEL 1-3 OR FEVER; Start at 16:30 Docusate Sodium (Colace) 100 mg Q12H PRN PO CONSTIPATION Last administered on 09:43; Admin Dose 100 MG; Start 05/13/16 at 16:30 Magnesium Hydroxide (Milk Of Mag) 30 ml DAILY PRN PO CONSTIPATION Last administered on 05/21/16 20:42; Admin Dose 30 ML; Start 05/13/16 at 16:30 Bisacodyl (Dulcolax Supp) 10 mg DAILY PRN [place] CONSTIPATION; Start 05/13/16 at 16 :30 Famotidine (Pepcid Iv) 20 mg Q12 IV Last administered on 05/22/16 09:20; Admin Dose 20 MG; Start 05/13/16 at 21:00 Salmeterol Xinafoate/ Fluticasone (Advair 250/50 Diskus) 1 inh BID INH Last administered on 05/22/16 09:20; Admin Dose 1 INH; Start 05/13/16 at 21:00 Atorvastatin Calcium (Lipitor) 80 mg QHS PO Last administered on 05/21/16 20: 42; Admin Dose 80 MG; Start 05/14/16 at 21:00 Hydralazine HCl (Apresoline) 10 mg Q4H PRN IV ELEVATED BLOOD PRESSURE Last administered on 05/18/16 01:36; Admin Dose 10 MG; Start 05/14/16 at 22:30 Enoxaparin Sodium (Lovenox) 30 mg DAILY SC Last administered on 05/22/16 09:44 ; Admin Dose 30 MG; Start 05/18/16 at 09:00 Diltiazem HCl (Cardizem Iv) 10 mg Q1H PRN IV HR>120 Last administered on 14:56; Admin Dose 10 MG; Start 05/18/16 at 10:00 Diltiazem HCl (Cardizem) 30 mg Q6 PO Last administered on 05/21/16 18:24; Admin Dose 30 MG; Start 05/19/16 at 18:00 Aspirin (Aspirin) 81 mg DAILY PO Last administered on 05/22/16 09:20; Admin Dose 81 MG; Start 05/19/16 at 16:00 Amiodarone HCl (Cordarone) 400 mg BID PO Last administered on 05/22/16 09:21; Admin Dose 400 MG; Start 05/19/16 at 21:00 Angel Barrios DO May 22, 2016 11:09
--- NOTE | 2016-05-22 13:42 | PN ---
Date/Time of Note Date/Time of Note DATE: 05/22/16 TIME: 13:33 Assessment/Plan VTE Prophylaxis VTE Prophylaxis Intervention: LMWH Lines/Catheters IV Catheter Type (from Nrs): PICC Line Central line still needed: Yes (for IV access) Urinary Cath still in place: No Assessment/Plan Assessment/Plan 65-year-old male with: 1. 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 Paroxysmal A fib. On Tele. MRI brain confirming Right MCA territory CVA CTA head with occlusion of the mid M1 segment of the right middle cerebral artery with nonvisualization of right remaining distal MCA branches Still lethargic and with left hemiparesis but more awake periods Continue rate/rhythm control, No anticoagulation x 14 days due to large size of CVA and high risk for hemorrhagic conversion. On ASA for now Aggressive PT/OT/ST to continue. 2. Paroxysmal Atrial Fibrillation: on Amiodarone and prn Cardizem. Has been in SR lately and episodes of bradycardia noted, agree with decrease Amio to 200 mg po bid done by Cardio. today 2D echo Ok, Dr Barrios following. 3. Hypertension. BP stable. 4. Asthma. Continue inhaler and nebulizers prn. 5. Infiltrated IV site, IV was removed and patient now with PICC line, cold compress and elevation. Now also noted to have swelling and ? cord LUE around site of previous IV Doppler positive with Superficial venous thrombosis of the basilic vein within the right forearm LUE doppler pending. No need to anticoagulate for now, symptomatic treatment and repeat Doppler in 1 week. 6. Urine cx with E coli and Strep, sensitive to Levaquin, but no symptoms ... Repeat UA and urine cx pending and Levaquin x 3 days until repeat cx back. Prophylaxis. S/p TPA. Pepcid for GI prophylaxis. Lovenox, prophylactic dose for DVT ppx and ASA for secondary stroke prevention. Condom cath in place DISPOSITION: On telemetry now and continuing PT/OT/ST aggressive Appreciate Neurology and Cardiology follow up. Subjective 24 Hr Interval Summary Free Text/Dictation Patient remains clinically stable, a little less lethargic Noted LUE cord, r/o DVT Labs wnl Exam/Review of Systems Vital Signs Vitals Vital Signs Date Time Temp Pulse Resp B/P Pulse Ox O2 Delivery O2 Flow Rate FiO2 05/22/16 12:03 52 05/22/16 10:57 98.3 19 139/83 95 05/21/16 17:12 21 05/18/16 15:00 Room Air Intake and Output 05/21/16 05/21/16 05/22/16 15:00 23:00 07:00 Intake Total 550 ml 200 ml Balance 550 ml 200 ml Exam Constitutional: alert, other (left hemiparesis ) Respiratory: clear to auscultation, normal air movement Cardiovascular: nl pulses, regular rate and rhythm Gastrointestinal: non-tender, soft Extremities: normal pulses, palpable cord (LUE) Neurological: 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 intact (except facial droop more evident today), focal weakness (left hemiparesis ), lethargic Results Result Diagram: 05/22/16 0635 05/22/16 0635 Results 24 hrs Laboratory Tests Test 05/22/16 06:35 Anion Gap 16 Basophils # 0.1 Basophils % 0.6 Blood Urea Nitrogen 20 Calcium Level 9.0 Carbon Dioxide Level 30 Chloride Level 99 Creatinine 0.74 Eosinophils # 0.4 Eosinophils % 4.8 Glucose Level 121 Hematocrit 39.7 L Hemoglobin 13.0 L Lymphocytes # 1.7 Lymphocytes % 18.7 Magnesium Level 2.0 Mean Corpuscular Hemoglobin 30.4 Mean Corpuscular Hemoglobin Concent 32.7 Mean Corpuscular Volume 93.0 Mean Platelet Volume 10.5 #H Monocytes # 0.7 Monocytes % 8.1 Neutrophils # 6.0 Neutrophils % 67.1 Nucleated Red Blood Cells # 0.0 Nucleated Red Blood Cells % 0.0 Phosphorus Level 3.5 Platelet Count 307 Potassium Level 4.4 Red Blood Count 4.27 L Red Cell Distribution Width 12.8 Sodium Level 141 White Blood Count 9.0 Medications Medications Current Medications Acetaminophen (Tylenol Tab) 650 mg Q4H PRN PO Temp greater than 99.6F Last administered on 05/19/16 21:50; Admin Dose 650 MG; Start 05/13/16 at 16:30 Docusate Sodium (Colace) 100 mg BID PO Last administered on 05/22/16 09:20; Admin Dose 100 MG; Start 05/13/16 at 21:00 Ondansetron HCl (Zofran Inj) 4 mg Q6H PRN IV NAUSEA AND/OR VOMITING; Start at 16:30 Acetaminophen (Tylenol Tab) 650 mg Q6H PRN PO PAIN LEVEL 1-3 OR FEVER; Start at 16:30 Docusate Sodium (Colace) 100 mg Q12H PRN PO CONSTIPATION Last administered on 09:43; Admin Dose 100 MG; Start 05/13/16 at 16:30 Magnesium Hydroxide (Milk Of Mag) 30 ml DAILY PRN PO CONSTIPATION Last administered on 05/21/16 20:42; Admin Dose 30 ML; Start 05/13/16 at 16:30 Bisacodyl (Dulcolax Supp) 10 mg DAILY PRN [place] CONSTIPATION; Start 05/13/16 at 16 :30 Famotidine (Pepcid Iv) 20 mg Q12 IV Last administered on 05/22/16 09:20; Admin Dose 20 MG; Start 05/13/16 at 21:00 Salmeterol Xinafoate/ Fluticasone (Advair 250/50 Diskus) 1 inh BID INH Last administered on 05/22/16 09:20; Admin Dose 1 INH; Start 05/13/16 at 21:00 Atorvastatin Calcium (Lipitor) 80 mg QHS PO Last administered on 05/21/16 20: 42; Admin Dose 80 MG; Start 05/14/16 at 21:00 Hydralazine HCl (Apresoline) 10 mg Q4H PRN IV ELEVATED BLOOD PRESSURE Last administered on 05/18/16 01:36; Admin Dose 10 MG; Start 05/14/16 at 22:30 Enoxaparin Sodium (Lovenox) 30 mg DAILY SC Last administered on 05/22/16 09:44 ; Admin Dose 30 MG; Start 05/18/16 at 09:00 Diltiazem HCl (Cardizem Iv) 10 mg Q1H PRN IV HR>120 Last administered on 14:56; Admin Dose 10 MG; Start 05/18/16 at 10:00 Aspirin (Aspirin) 81 mg DAILY PO Last administered on 05/22/16 09:20; Admin Dose 81 MG; Start 05/19/16 at 16:00 Amiodarone HCl (Cordarone) 200 mg BID PO ; Start 05/22/16 at 21:00 Diltiazem HCl (Cardizem Cd) 120 mg DAILY PO ; Start 05/23/16 at 09:00 NICO BUCHANAN May 22, 2016 13:42
--- NOTE | 2016-05-22 18:24 | RADRPT ---
PROCEDURE: Left upper extremity venous ultrasound CLINICAL INDICATION: Left arm pain and swelling. Deep venous thrombosis. TECHNIQUE: Moraes scale, color doppler, spectral doppler ultrasound imaging of the venous system of the left upper extremity. Augmentation maneuvers were utilized. COMPARISON: No prior studies are available for comparison. FINDINGS: LEFT: Internal jugular vein: Patent. Subclavian vein: Patent. Axillary vein: Patent. Brachial vein: Patent. Basilic vein: Thrombus is present distally Cephalic vein: Patent. Radial vein: Patent. Ulnar vein: Patent. IMPRESSION: No evidence of a deep vein thrombosis involving the left upper extremity. Superficial venous thrombosis within the distal left basilic vein. RPTAT: AADD .Brian Vasquez MD, MD Date Time Electronically viewed and signed by .Brian Vasquez MD, on 05/22/2016 18:24 .B/
[2016-05-22] MEDS: ATORVASTATIN 40 MG TAB PO SCH (20:35)
[2016-05-23] VITALS (13 sets, daily range): BP systolic 125–141; BP diastolic 78–86; PULSE 62–70; RESP 16–18
[2016-05-23 06:20] LABS: ADD SCAN DIFF NO
[2016-05-23 06:45] LABS: POTASSIUM 3.9 mmol/L (3.5-5.1)
[2016-05-23 06:48] LABS: CREATININE 0.85 mg/dl (0.61-1.24)
[2016-05-23 06:49] LABS: BASOPHIL # 0.1 10^3/ul (0.0-0.1); BASOPHILS % 0.5 % (0.0-2.0); EOSINOPHILS # 0.4 10^3/ul (0.0-0.5); EOSINOPHILS % 3.9 % (0.0-7.0); HEMATOCRIT 39.5 % (42.0-52.0); HEMOGLOBIN 12.9 g/dl (14.0-18.0); LYMPHOCYTES # 1.5 10^3/ul (0.8-2.9); MEAN CORPUSCULAR HEMOGLOBIN 30.3 pg (29.0-33.0); MEAN CORPUSCULAR HGB CONC 32.7 g/dl (32.0-37.0); MEAN CORPUSCULAR VOLUME 92.7 fl (82.0-101.0); MEAN PLATELET VOLUME 10.4 fl (7.4-10.4); MONOCYTE # 0.7 10^3/ul (0.3-0.9); NEUTROPHIL # 6.8 10^3/ul (1.6-7.5); NEUTROPHILS % 72.1 % (39.0-77.0); PLATELET COUNT 314 10^3/UL (140-415); RED BLOOD COUNT 4.26 10^6/ul (4.70-6.10); RED CELL DISTRIBUTION WIDTH 12.6 % (11.5-14.5); WHITE BLOOD COUNT 9.5 10^3/ul (4.8-10.8)
[2016-05-23 06:49] LABS: CALCIUM 9.1 mg/dl (8.4-10.2)
[2016-05-23] MEDS: FAMOTIDINE 20 MG INJ IV SCH ×2 (09:10→20:30)
[2016-05-23] MEDS: DOCUSATE SODIUM 100 MG CAP PO SCH ×2 (09:11→20:37)
[2016-05-23] MEDS: DILTIAZEM (CD) 120 MG CAP PO SCH (09:11)
[2016-05-23] MEDS: AMIODARONE 200 MG TAB PO SCH ×2 (09:12→20:30)
[2016-05-23] MEDS: SALMETEROL/FLUTICASONE 250/50 INHA INH SCH ×2 (09:13→20:29)
[2016-05-23] MEDS: ENOXAPARIN 30 MG/0.3 ML SYG SC SCH (09:30)
[2016-05-23] MEDS: ASPIRIN 81 MG TAB PO SCH (09:31)
[2016-05-23] MEDS ORDERED: MINERAL OIL 133 ML ENEMA PR PRN (14:30)
--- NOTE | 2016-05-23 14:44 | PN ---
NICO BUCHANAN 05/23/16 1435: Date/Time of Note Date/Time of Note DATE: 05/23/16 TIME: 14:25 Assessment/Plan VTE Prophylaxis VTE Prophylaxis Intervention: SCD's Lines/Catheters IV Catheter Type (from Nrs): PICC Line Urinary Cath still in place: No Reason Cath still needed: other (indicate) (condom cath in place ) Assessment/Plan Assessment/Plan 65-year-old male with: 1. 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 Paroxysmal A fib. On Tele. MRI brain confirming Right MCA territory CVA CTA head with occlusion of the mid M1 segment of the right middle cerebral artery with nonvisualization of right remaining distal MCA branches Still lethargic and with left hemiparesis but more awake periods Continue rate/rhythm control, No anticoagulation x 14 days due to large size of CVA and high risk for hemorrhagic conversion. On ASA for now Aggressive PT/OT/ST to continue. 2. Paroxysmal Atrial Fibrillation: on Amiodarone and prn Cardizem. Has been in SR lately and episodes of bradycardia noted, agree with decrease Amio to 200 mg po bid done by Cardiology today 2D echo Ok, Dr Barrios following. 3. Hypertension. BP stable. 4. Asthma. Continue inhaler and nebulizers prn. 5. Infiltrated IV site, IV was removed and patient now with PICC line, cold compress and elevation. Now also noted to have swelling and ? cord LUE around site of previous IV Doppler positive with Superficial venous thrombosis of the basilic vein within the right forearm LUE doppler pending. No need to anticoagulate for now, symptomatic treatment and repeat Doppler in 1 week. 6. Urine cx with E coli and Strep, sensitive to Levaquin, but no symptoms ... Repeat UA and urine cx NGTD and s/p Levaquin x 3 days. Prophylaxis. S/p TPA. Pepcid for GI prophylaxis. Lovenox, prophylactic dose for DVT ppx and ASA for secondary stroke prevention. Condom cath in place DISPOSITION: On telemetry now and continuing PT/OT/ST aggressive with plans for SNF vs ARU Appreciate Neurology and Cardiology follow up. Subjective 24 Hr Interval Summary Free Text/Dictation Patient's lethargy improving but still with deep Left hemiparesis Tolerating po well No complaints With b/l superficial thrombi basilic veins (sites of previous IVs) Exam/Review of Systems Vital Signs Vitals Vital Signs Date Time Temp Pulse Resp B/P Pulse Ox O2 Delivery O2 Flow Rate FiO2 05/23/16 12:05 67 05/23/16 11:18 98.2 18 132/84 98 05/22/16 17:46 21 Intake and Output 05/22/16 05/22/16 05/23/16 15:00 23:00 07:00 Intake Total 480 ml 200 ml Balance 480 ml 200 ml Exam Constitutional: alert, oriented (x2 at least ) Respiratory: clear to auscultation, normal air movement Cardiovascular: nl pulses, regular rate and rhythm (back in SR ) Gastrointestinal: non-tender, soft Extremities: normal pulses, palpable cord (LUE ) Neurological: focal weakness (left hemiparesis ), lethargic (but improved ) Results Result Diagram: 05/23/16 0540 05/23/16 0600 Results 24 hrs Laboratory Tests Test 05/23/16 05:18 05/23/16 05:40 05/23/16 06:00 Magnesium Level 2.0 Basophils # 0.1 Basophils % 0.5 Eosinophils # 0.4 Eosinophils % 3.9 Hematocrit 39.5 L Hemoglobin 12.9 L Lymphocytes # 1.5 Lymphocytes % 16.0 Mean Corpuscular Hemoglobin 30.3 Mean Corpuscular Hemoglobin Concent 32.7 Mean Corpuscular Volume 92.7 Mean Platelet Volume 10.4 Monocytes # 0.7 Monocytes % 7.0 Neutrophils # 6.8 Neutrophils % 72.1 Nucleated Red Blood Cells # 0.0 Nucleated Red Blood Cells % 0.0 Platelet Count 314 Red Blood Count 4.26 L Red Cell Distribution Width 12.6 White Blood Count 9.5 Anion Gap 18 H Blood Urea Nitrogen 17 Calcium Level 9.1 Carbon Dioxide Level 30 Chloride Level 99 Creatinine 0.85 Glucose Level 126 Potassium Level 3.9 Sodium Level 143 Medications Medications Current Medications Acetaminophen (Tylenol Tab) 650 mg Q4H PRN PO Temp greater than 99.6F Last administered on 05/19/16 21:50; Admin Dose 650 MG; Start 05/13/16 at 16:30 Docusate Sodium (Colace) 100 mg BID PO Last administered on 05/23/16 09:11; Admin Dose 100 MG; Start 05/13/16 at 21:00 Ondansetron HCl (Zofran Inj) 4 mg Q6H PRN IV NAUSEA AND/OR VOMITING; Start at 16:30 Acetaminophen (Tylenol Tab) 650 mg Q6H PRN PO PAIN LEVEL 1-3 OR FEVER; Start at 16:30 Docusate Sodium (Colace) 100 mg Q12H PRN PO CONSTIPATION Last administered on 09:43; Admin Dose 100 MG; Start 05/13/16 at 16:30 Magnesium Hydroxide (Milk Of Mag) 30 ml DAILY PRN PO CONSTIPATION Last administered on 05/21/16 20:42; Admin Dose 30 ML; Start 05/13/16 at 16:30 Bisacodyl (Dulcolax Supp) 10 mg DAILY PRN [place] CONSTIPATION; Start 05/13/16 at 16 :30 Famotidine (Pepcid Iv) 20 mg Q12 IV Last administered on 05/23/16 09:10; Admin Dose 20 MG; Start 05/13/16 at 21:00 Salmeterol Xinafoate/ Fluticasone (Advair 250/50 Diskus) 1 inh BID INH Last administered on 05/23/16 09:13; Admin Dose 1 INH; Start 05/13/16 at 21:00 Atorvastatin Calcium (Lipitor) 80 mg QHS PO Last administered on 05/22/16 20: 35; Admin Dose 80 MG; Start 05/14/16 at 21:00 Hydralazine HCl (Apresoline) 10 mg Q4H PRN IV ELEVATED BLOOD PRESSURE Last administered on 05/18/16 01:36; Admin Dose 10 MG; Start 05/14/16 at 22:30 Enoxaparin Sodium (Lovenox) 30 mg DAILY SC Last administered on 05/23/16 09:30 ; Admin Dose 30 MG; Start 05/18/16 at 09:00 Diltiazem HCl (Cardizem Iv) 10 mg Q1H PRN IV HR>120 Last administered on 14:56; Admin Dose 10 MG; Start 05/18/16 at 10:00 Aspirin (Aspirin) 81 mg DAILY PO Last administered on 05/23/16 09:31; Admin Dose 81 MG; Start 05/19/16 at 16:00 Amiodarone HCl (Cordarone) 200 mg BID PO Last administered on 05/23/16 09:12; Admin Dose 200 MG; Start 05/22/16 at 21:00 Diltiazem HCl (Cardizem Cd) 120 mg DAILY PO Last administered on 05/23/16 09: 11; Admin Dose 120 MG; Start 05/23/16 at 09:00 APRIL MAIN M.D. 05/24/16 0819: Exam/Review of Systems Results Result Diagram: 05/23/16 0540 05/23/16 0600 NICO BUCHANAN May 23, 2016 14:35 APRIL MAIN M.D. May 24, 2016 08:19
--- NOTE | 2016-05-23 15:15 | CONS ---
Date/Time of Note Date/Time of Note DATE: 05/23/16 TIME: 15:14 Assessment/Plan Assessment/Plan Additional Assessment/Plan Right MCA CVA Paroxysmal atrial fibrillation, currently sinus rhythm Preserved ejection fraction Hypertension Dyslipidemia Superficial thrombus left upper extremity -Patient remains in sinus rhythm, with decrease amiodarone to daily next 2-3 days. Continue Cardizem as heart rate permits. Patient with superficial venous thrombus in left upper extremity, would recommend warm compresses. No anticoagulation at the current time given recent large CVA. Consultation Date/Type/Reason Admit Date/Time May 13, 2016 at 16:42 Initial Consult Date 05/14/16 Type of Consultation: cv Referring Provider: NICO BUCHANAN 24 HR Interval Summary Free Text/Dictation No shortness of breath, chest pain or palpitations Exam/Review of Systems Vital Signs Vitals Vital Signs Date Time Temp Pulse Resp B/P Pulse Ox O2 Delivery O2 Flow Rate FiO2 05/23/16 15:07 98.0 63 18 125/78 98 05/22/16 17:46 21 Intake and Output 05/22/16 05/22/16 05/23/16 15:00 23:00 07:00 Intake Total 480 ml 200 ml Balance 480 ml 200 ml Exam Follows commands, no apparent distress, family at bedside Constitutional: alert Head: normocephalic Neck: supple Respiratory: other (Coarse breath sounds bilaterally, no wheezing) Cardiovascular: other (S1-S2 heard), regular rate and rhythm Gastrointestinal: bowel sounds, non-tender, other (No guarding), soft Extremities: edema Results Result Diagram: 05/23/16 0540 05/23/16 0600 Results 24 hrs Laboratory Tests Test 05/23/16 05:18 05/23/16 05:40 05/23/16 06:00 Magnesium Level 2.0 Basophils # 0.1 Basophils % 0.5 Eosinophils # 0.4 Eosinophils % 3.9 Hematocrit 39.5 L Hemoglobin 12.9 L Lymphocytes # 1.5 Lymphocytes % 16.0 Mean Corpuscular Hemoglobin 30.3 Mean Corpuscular Hemoglobin Concent 32.7 Mean Corpuscular Volume 92.7 Mean Platelet Volume 10.4 Monocytes # 0.7 Monocytes % 7.0 Neutrophils # 6.8 Neutrophils % 72.1 Nucleated Red Blood Cells # 0.0 Nucleated Red Blood Cells % 0.0 Platelet Count 314 Red Blood Count 4.26 L Red Cell Distribution Width 12.6 White Blood Count 9.5 Anion Gap 18 H Blood Urea Nitrogen 17 Calcium Level 9.1 Carbon Dioxide Level 30 Chloride Level 99 Creatinine 0.85 Glucose Level 126 Potassium Level 3.9 Sodium Level 143 Medications Medications Current Medications Acetaminophen (Tylenol Tab) 650 mg Q4H PRN PO Temp greater than 99.6F Last administered on 05/19/16 21:50; Admin Dose 650 MG; Start 05/13/16 at 16:30 Docusate Sodium (Colace) 100 mg BID PO Last administered on 05/23/16 09:11; Admin Dose 100 MG; Start 05/13/16 at 21:00 Ondansetron HCl (Zofran Inj) 4 mg Q6H PRN IV NAUSEA AND/OR VOMITING; Start at 16:30 Acetaminophen (Tylenol Tab) 650 mg Q6H PRN PO PAIN LEVEL 1-3 OR FEVER; Start at 16:30 Docusate Sodium (Colace) 100 mg Q12H PRN PO CONSTIPATION Last administered on 09:43; Admin Dose 100 MG; Start 05/13/16 at 16:30 Magnesium Hydroxide (Milk Of Mag) 30 ml DAILY PRN PO CONSTIPATION Last administered on 05/21/16 20:42; Admin Dose 30 ML; Start 05/13/16 at 16:30 Bisacodyl (Dulcolax Supp) 10 mg DAILY PRN [place] CONSTIPATION; Start 05/13/16 at 16 :30 Famotidine (Pepcid Iv) 20 mg Q12 IV Last administered on 05/23/16 09:10; Admin Dose 20 MG; Start 05/13/16 at 21:00 Salmeterol Xinafoate/ Fluticasone (Advair 250/50 Diskus) 1 inh BID INH Last administered on 05/23/16 09:13; Admin Dose 1 INH; Start 05/13/16 at 21:00 Atorvastatin Calcium (Lipitor) 80 mg QHS PO Last administered on 05/22/16 20: 35; Admin Dose 80 MG; Start 05/14/16 at 21:00 Hydralazine HCl (Apresoline) 10 mg Q4H PRN IV ELEVATED BLOOD PRESSURE Last administered on 05/18/16 01:36; Admin Dose 10 MG; Start 05/14/16 at 22:30 Enoxaparin Sodium (Lovenox) 30 mg DAILY SC Last administered on 05/23/16 09:30 ; Admin Dose 30 MG; Start 05/18/16 at 09:00 Diltiazem HCl (Cardizem Iv) 10 mg Q1H PRN IV HR>120 Last administered on 14:56; Admin Dose 10 MG; Start 05/18/16 at 10:00 Aspirin (Aspirin) 81 mg DAILY PO Last administered on 05/23/16 09:31; Admin Dose 81 MG; Start 05/19/16 at 16:00 Amiodarone HCl (Cordarone) 200 mg BID PO Last administered on 05/23/16 09:12; Admin Dose 200 MG; Start 05/22/16 at 21:00 Diltiazem HCl (Cardizem Cd) 120 mg DAILY PO Last administered on 05/23/16 09: 11; Admin Dose 120 MG; Start 05/23/16 at 09:00 Mineral Oil (Fleet Mineral Oil Enema) 133 ml DAILY PRN [place] CONSTIPATION; Start 05/23/16 at 14:30 Angel Barrios DO May 23, 2016 15:15
[2016-05-23] MEDS: ATORVASTATIN 40 MG TAB PO SCH (20:30)
[2016-05-24] VITALS (12 sets, daily range): BP systolic 126–157; BP diastolic 74–86; PULSE 57–65; RESP 16–17
[2016-05-24 07:38] LABS: POTASSIUM 4.2 mmol/L (3.5-5.1)
[2016-05-24 07:40] LABS: CREATININE 0.86 mg/dl (0.61-1.24)
[2016-05-24] MEDS: DOCUSATE SODIUM 100 MG CAP PO SCH ×2 (09:00→19:07)
[2016-05-24] MEDS: FAMOTIDINE 20 MG INJ IV SCH ×2 (09:35→20:51)
[2016-05-24] MEDS: ASPIRIN 81 MG TAB PO SCH (09:35)
[2016-05-24] MEDS: AMIODARONE 200 MG TAB PO SCH ×2 (09:36→20:51)
[2016-05-24] MEDS: DILTIAZEM (CD) 120 MG CAP PO SCH (09:36)
[2016-05-24] MEDS: ENOXAPARIN 30 MG/0.3 ML SYG SC SCH (09:37)
[2016-05-24] MEDS: SALMETEROL/FLUTICASONE 250/50 INHA INH SCH ×2 (09:38→20:51)
[2016-05-24] MEDS: BISACODYL 10 MG SUPP PR PRN (12:37)
[2016-05-24] MEDS: ATORVASTATIN 40 MG TAB PO SCH (20:50)
[2016-05-25] VITALS (12 sets, daily range): BP systolic 119–147; BP diastolic 66–81; PULSE 56–63; RESP 15–20
--- NOTE | 2016-05-25 00:56 | PN ---
Date/Time of Note Date/Time of Note DATE: 05/24/16 TIME: 20:54 Assessment/Plan VTE Prophylaxis VTE Prophylaxis Intervention: SCD's Lines/Catheters IV Catheter Type (from Nrs): PICC Line Central line still needed: Yes (Access problem) Urinary Cath still in place: No Assessment/Plan Assessment/Plan [facility] 1. 65-year-old man admitted 12 days ago for right MCA arterial occlusion and acute CVA with severe left hemiparesis, left facial droop and dysphasia. MRI brain confirming right MCA territory CVA, with CTA head showing occlusion of the mid-M1 segment of the right middle cerebral artery with nonvisualization of right remaining distal MCA branches. No headache or other pain complaints. Daughter Pascale and [id number] at bedside today. Able to sit up and watch a soccer match on television, with recognition of teams. But still somewhat lethargic. Following commands, moving right arm well. * Continue rate control * No anticoagulation x 14 days due to large size of CVA and high risk for hemorrhagic conversion * Continue aspirin * Continued PT/OT/ST 2. Paroxysmal Atrial Fibrillation, in sinus rhythm now on telemetry. Echo shows normal LV function. * Continue amiodarone at 200mg PO BID * PRN Cardizem 3. Hypertension history, with stable BP now 4. Reactive airways disease * Continue duoneb inhaler and nebulizers PRN 5. Urine culture showed E coli and Enterococcus, sensitive to Levaquin. Repeat UA and urine culture negative to-date s/p Levaquin x 3 days 6. Prophylaxis. s/p TPA. Pepcid for GI prophylaxis. SCDs, with aspirin for secondary stroke prevention. Condom cath in place. 7. DISPOSITION: Discussed acute rehab admission with [facility], who said patient was not ready. Discussed at length with the family the benefits of interim skilled facility placement, with potential to accelerate recovery. Patient medically cleared for transfer, but the family was not comfortable with [facility] in [facility] (no accommodation for the patient's ). They will be screening other facilities Thursday. Von Stevens MD PhD [phone] Subjective 24 Hr Interval Summary Free Text/Dictation Daughter Pascale and [id number] at bedside today. Able to sit up and watch a soccer match on television, with recognition of teams. No pain complaints or nausea. Says he can feel me stroke soles of both feet. Exam/Review of Systems Vital Signs Vitals Vital Signs Date Time Temp Pulse Resp B/P Pulse Ox O2 Delivery O2 Flow Rate FiO2 05/25/16 00:26 63 05/24/16 23:10 97.6 16 157/86 96 05/22/16 17:46 21 Intake and Output 05/24/16 05/24/16 05/25/16 15:00 23:00 07:00 Intake Total 400 ml Balance 400 ml Exam Constitutional: alert, difficulty communicating, but breathing comfortably on room air. Respiratory: clear to auscultation, good air movement Cardiovascular: nl pulses, regular rate and rhythm Gastrointestinal: non-tender, soft, no HSM, bowel sounds normal. Extremities: normal pulses, no edema, Neurological: Dense left hemiparesis, with left facial droop. Babinskis equivocal. Trace patellar reflexes. Results Result Diagram: 05/23/16 0540 05/24/16 0600 Results 24 hrs Laboratory Tests Test 05/24/16 06:00 05/24/16 06:35 Anion Gap 16 Blood Urea Nitrogen 16 Calcium Level 9.0 Carbon Dioxide Level 31 Chloride Level 100 Creatinine 0.86 Glucose Level 116 Potassium Level 4.2 Sodium Level 143 Magnesium Level 2.1 Medications Medications Current Medications Acetaminophen (Tylenol Tab) 650 mg Q4H PRN PO Temp greater than 99.6F Last administered on 05/19/16 21:50; Admin Dose 650 MG; Start 05/13/16 at 16:30 Docusate Sodium (Colace) 100 mg BID PO Last administered on 05/23/16 20:37; Admin Dose 100 MG; Start 05/13/16 at 21:00 Ondansetron HCl (Zofran Inj) 4 mg Q6H PRN IV NAUSEA AND/OR VOMITING; Start at 16:30 Acetaminophen (Tylenol Tab) 650 mg Q6H PRN PO PAIN LEVEL 1-3 OR FEVER; Start at 16:30 Docusate Sodium (Colace) 100 mg Q12H PRN PO CONSTIPATION Last administered on 09:43; Admin Dose 100 MG; Start 05/13/16 at 16:30 Magnesium Hydroxide (Milk Of Mag) 30 ml DAILY PRN PO CONSTIPATION Last administered on 05/21/16 20:42; Admin Dose 30 ML; Start 05/13/16 at 16:30 Bisacodyl (Dulcolax Supp) 10 mg DAILY PRN [place] CONSTIPATION Last administered on 05/24/16 12:37; Admin Dose 10 MG; Start 05/13/16 at 16:30 Famotidine (Pepcid Iv) 20 mg Q12 IV Last administered on 05/24/16 20:51; Admin Dose 20 MG; Start 05/13/16 at 21:00 Salmeterol Xinafoate/ Fluticasone (Advair 250/50 Diskus) 1 inh BID INH Last administered on 05/24/16 09:38; Admin Dose 1 INH; Start 05/13/16 at 21:00 Atorvastatin Calcium (Lipitor) 80 mg QHS PO Last administered on 05/24/16 20: 50; Admin Dose 80 MG; Start 05/14/16 at 21:00 Hydralazine HCl (Apresoline) 10 mg Q4H PRN IV ELEVATED BLOOD PRESSURE Last administered on 05/18/16 01:36; Admin Dose 10 MG; Start 05/14/16 at 22:30 Enoxaparin Sodium (Lovenox) 30 mg DAILY SC Last administered on 05/24/16 09:37 ; Admin Dose 30 MG; Start 05/18/16 at 09:00 Diltiazem HCl (Cardizem Iv) 10 mg Q1H PRN IV HR>120 Last administered on 14:56; Admin Dose 10 MG; Start 05/18/16 at 10:00 Aspirin (Aspirin) 81 mg DAILY PO Last administered on 05/24/16 09:35; Admin Dose 81 MG; Start 05/19/16 at 16:00 Amiodarone HCl (Cordarone) 200 mg BID PO Last administered on 05/24/16 20:51; Admin Dose 200 MG; Start 05/22/16 at 21:00 Diltiazem HCl (Cardizem Cd) 120 mg DAILY PO Last administered on 05/24/16 09: 36; Admin Dose 120 MG; Start 05/23/16 at 09:00 Mineral Oil (Fleet Mineral Oil Enema) 133 ml DAILY PRN [place] CONSTIPATION; Start 05/23/16 at 14:30 APRIL STEVENS M.D. May 25, 2016 00:55
[2016-05-25] MEDS: ASPIRIN 81 MG TAB PO SCH (08:55)
[2016-05-25] MEDS: DILTIAZEM (CD) 120 MG CAP PO SCH (08:55)
[2016-05-25] MEDS: SALMETEROL/FLUTICASONE 250/50 INHA INH SCH ×2 (08:55→20:25)
[2016-05-25] MEDS: AMIODARONE 200 MG TAB PO SCH ×2 (08:56→20:24)
[2016-05-25] MEDS: DOCUSATE SODIUM 100 MG CAP PO SCH ×2 (08:58→20:07)
[2016-05-25] MEDS: FAMOTIDINE 20 MG INJ IV SCH ×2 (09:01→20:24)
[2016-05-25] MEDS: ENOXAPARIN 30 MG/0.3 ML SYG SC SCH (09:02)
--- NOTE | 2016-05-25 12:27 | CONS ---
Date/Time of Note Date/Time of Note DATE: 05/25/16 TIME: 12:26 Assessment/Plan Assessment/Plan Additional Assessment/Plan Right MCA CVA Paroxysmal atrial fibrillation, currently sinus rhythm Preserved ejection fraction Hypertension Dyslipidemia Superficial thrombus left upper extremity -Patient remains in sinus rhythm, with decrease amiodarone to daily, continue Cardizem as blood pressure and heart rate permits. Consultation Date/Type/Reason Admit Date/Time May 13, 2016 at 16:42 Initial Consult Date 05/14/16 Type of Consultation: cv Referring Provider: NICO BUCHANAN 24 HR Interval Summary Free Text/Dictation Patient seen and examined. No shortness of breath, palpitations. Family at bedside Exam/Review of Systems Vital Signs Vitals Vital Signs Date Time Temp Pulse Resp B/P Pulse Ox O2 Delivery O2 Flow Rate FiO2 05/25/16 12:20 61 05/25/16 11:47 97.0 20 137/74 97 05/22/16 17:46 21 Intake and Output 05/24/16 05/24/16 05/25/16 15:00 23:00 07:00 Intake Total 400 ml 50 ml Balance 400 ml 50 ml Exam Sleeping but arousable, no apparent distress, follows commands Constitutional: obese Head: normocephalic Neck: supple Respiratory: other (Coarse breath sounds bilaterally, no wheezing) Cardiovascular: other (S1-S2 heard), regular rate and rhythm Gastrointestinal: bowel sounds, non-tender, other (No guarding), soft Extremities: edema (Trace) Results Result Diagram: 05/23/16 0540 05/24/16 0600 Medications Medications Current Medications Acetaminophen (Tylenol Tab) 650 mg Q4H PRN PO Temp greater than 99.6F Last administered on 05/19/16 21:50; Admin Dose 650 MG; Start 05/13/16 at 16:30 Docusate Sodium (Colace) 100 mg BID PO Last administered on 05/23/16 20:37; Admin Dose 100 MG; Start 05/13/16 at 21:00 Ondansetron HCl (Zofran Inj) 4 mg Q6H PRN IV NAUSEA AND/OR VOMITING; Start at 16:30 Acetaminophen (Tylenol Tab) 650 mg Q6H PRN PO PAIN LEVEL 1-3 OR FEVER; Start at 16:30 Docusate Sodium (Colace) 100 mg Q12H PRN PO CONSTIPATION Last administered on 09:43; Admin Dose 100 MG; Start 05/13/16 at 16:30 Magnesium Hydroxide (Milk Of Mag) 30 ml DAILY PRN PO CONSTIPATION Last administered on 05/21/16 20:42; Admin Dose 30 ML; Start 05/13/16 at 16:30 Bisacodyl (Dulcolax Supp) 10 mg DAILY PRN [place] CONSTIPATION Last administered on 05/24/16 12:37; Admin Dose 10 MG; Start 05/13/16 at 16:30 Famotidine (Pepcid Iv) 20 mg Q12 IV Last administered on 05/25/16 09:01; Admin Dose 20 MG; Start 05/13/16 at 21:00 Salmeterol Xinafoate/ Fluticasone (Advair 250/50 Diskus) 1 inh BID INH Last administered on 05/24/16 09:38; Admin Dose 1 INH; Start 05/13/16 at 21:00 Atorvastatin Calcium (Lipitor) 80 mg QHS PO Last administered on 05/24/16 20: 50; Admin Dose 80 MG; Start 05/14/16 at 21:00 Hydralazine HCl (Apresoline) 10 mg Q4H PRN IV ELEVATED BLOOD PRESSURE Last administered on 05/18/16 01:36; Admin Dose 10 MG; Start 05/14/16 at 22:30 Enoxaparin Sodium (Lovenox) 30 mg DAILY SC Last administered on 05/25/16 09:02 ; Admin Dose 30 MG; Start 05/18/16 at 09:00 Diltiazem HCl (Cardizem Iv) 10 mg Q1H PRN IV HR>120 Last administered on 14:56; Admin Dose 10 MG; Start 05/18/16 at 10:00 Aspirin (Aspirin) 81 mg DAILY PO Last administered on 05/25/16 08:55; Admin Dose 81 MG; Start 05/19/16 at 16:00 Amiodarone HCl (Cordarone) 200 mg BID PO Last administered on 05/25/16 08:56; Admin Dose 200 MG; Start 05/22/16 at 21:00 Diltiazem HCl (Cardizem Cd) 120 mg DAILY PO Last administered on 05/25/16t 08: 55; Admin Dose 120 MG; Start 05/23/16 at 09:00 Mineral Oil (Fleet Mineral Oil Enema) 133 ml DAILY PRN [place] CONSTIPATION; Start 05/23/16 at 14:30 Angel Barrios DO May 25, 2016 12:27
[2016-05-25] MEDS: ATORVASTATIN 40 MG TAB PO SCH (20:24)
[2016-05-25] MEDS: ACETAMINOPHEN 325 MG TAB PO PRN (20:56)
--- NOTE | 2016-05-25 23:55 | PN ---
Date/Time of Note Date/Time of Note DATE: 05/25/16 TIME: 23:54 Assessment/Plan VTE Prophylaxis VTE Prophylaxis Intervention: SCD's Lines/Catheters IV Catheter Type (from Nrs): PICC Line Central line still needed: Yes (Peripheral access is difficult in this patient) Urinary Cath still in place: No Assessment/Plan Assessment/Plan [facility] 1. 65-year-old man with continued improvement following right MCA stroke. Admitted 13 days ago for right MCA arterial occlusion and acute CVA with severe left hemiparesis, left facial droop and dysphasia. MRI brain confirming right MCA territory CVA, with CTA head showing occlusion of the mid-M1 segment of the right middle cerebral artery with nonvisualization of right remaining distal MCA branches. No headache or other pain complaints. Daughter Shauna was at his bedside again this morning. He is able to sit up and engage partially with his family and to watch television. Very slow to follow commands. No difficulty swallowing, according to the family. * No anticoagulation x 14 days due to large size of CVA and high risk for hemorrhagic conversion * Continue aspirin 81mg * Continued PT/OT/ST 2. Paroxysmal Atrial Fibrillation, in sinus rhythm now on telemetry. Echo shows normal LV function. * Change amiodarone to 200mg PO daily, per Dr. Barrios. * PRN Cardizem 3. Hypertension history, with stable BP now 4. Reactive airways disease * Continue duoneb inhaler and nebulizers PRN 5. Urine culture showed E coli and Enterococcus, sensitive to Levaquin. Repeat UA and urine culture negative to-date s/p Levaquin x 3 days 6. Prophylaxis. s/p TPA. Pepcid for GI prophylaxis. SCDs, with aspirin for secondary stroke prevention. Condom cath in place. 7. DISPOSITION: Again discussed at length with the family the benefits of interim skilled facility placement, with potential to accelerate recovery. But they indicated today that they had looked at other facilities our case management coordinator suggested, and they were not satisfied. They expressed a willingness to pay for extra days in the hospital in order to preserve their privacy and the right of Ms. Lopez to stay in the room. The patient was medically cleared yesterday for transfer. Von Stevens MD PhD [phone] Subjective 24 Hr Interval Summary Free Text/Dictation Large family at bedside. Denies any headache or other pain. Has not tried reading yet, but he says (with his interpreting) that his vision is normal. Exam/Review of Systems Vital Signs Vitals Vital Signs Date Time Temp Pulse Resp B/P Pulse Ox O2 Delivery O2 Flow Rate FiO2 05/25/16 23:29 97.9 57 16 119/66 95 05/22/16 17:46 21 Intake and Output 05/24/16 05/24/16 05/25/16 15:00 23:00 07:00 Intake Total 400 ml 50 ml Balance 400 ml 50 ml Exam Constitutional: alert, difficulty communicating, but breathing comfortably on room air. Respiratory: clear to auscultation, good air movement Cardiovascular: nl pulses, regular rate and rhythm Gastrointestinal: non-tender, soft, no HSM, bowel sounds normal. Extremities: normal pulses, no edema, Neurological: Dense left hemiparesis, with left facial droop. Has sensation in the left foot, but no motor tone. Left arm is -weight. Babinski reflex equivocal bilaterally. Trace patellar reflexes. Results Result Diagram: 05/23/16 0540 05/24/16 0600 Medications Medications Current Medications Acetaminophen (Tylenol Tab) 650 mg Q4H PRN PO Temp greater than 99.6F Last administered on 05/25/16 20:56; Admin Dose 650 MG; Start 05/13/16 at 16:30 Docusate Sodium (Colace) 100 mg BID PO Last administered on 05/23/16 20:37; Admin Dose 100 MG; Start 05/13/16 at 21:00 Ondansetron HCl (Zofran Inj) 4 mg Q6H PRN IV NAUSEA AND/OR VOMITING; Start at 16:30 Acetaminophen (Tylenol Tab) 650 mg Q6H PRN PO PAIN LEVEL 1-3 OR FEVER; Start at 16:30 Docusate Sodium (Colace) 100 mg Q12H PRN PO CONSTIPATION Last administered on 09:43; Admin Dose 100 MG; Start 05/13/16 at 16:30 Magnesium Hydroxide (Milk Of Mag) 30 ml DAILY PRN PO CONSTIPATION Last administered on 05/21/16 20:42; Admin Dose 30 ML; Start 05/13/16 at 16:30 Bisacodyl (Dulcolax Supp) 10 mg DAILY PRN [place] CONSTIPATION Last administered on 05/24/16 12:37; Admin Dose 10 MG; Start 05/13/16 at 16:30 Famotidine (Pepcid Iv) 20 mg Q12 IV Last administered on 05/25/16 20:24; Admin Dose 20 MG; Start 05/13/16 at 21:00 Salmeterol Xinafoate/ Fluticasone (Advair 250/50 Diskus) 1 inh BID INH Last administered on 05/24/16 09:38; Admin Dose 1 INH; Start 05/13/16 at 21:00 Atorvastatin Calcium (Lipitor) 80 mg QHS PO Last administered on 05/25/16 20: 24; Admin Dose 80 MG; Start 05/14/16 at 21:00 Hydralazine HCl (Apresoline) 10 mg Q4H PRN IV ELEVATED BLOOD PRESSURE Last administered on 05/18/16 01:36; Admin Dose 10 MG; Start 05/14/16 at 22:30 Enoxaparin Sodium (Lovenox) 30 mg DAILY SC Last administered on 05/25/16 09:02 ; Admin Dose 30 MG; Start 05/18/16 at 09:00 Diltiazem HCl (Cardizem Iv) 10 mg Q1H PRN IV HR>120 Last administered on 14:56; Admin Dose 10 MG; Start 05/18/16 at 10:00 Aspirin (Aspirin) 81 mg DAILY PO Last administered on 05/25/16 08:55; Admin Dose 81 MG; Start 05/19/16 at 16:00 Diltiazem HCl (Cardizem Cd) 120 mg DAILY PO Last administered on 05/25/16 08: 55; Admin Dose 120 MG; Start 05/23/16 at 09:00 Mineral Oil (Fleet Mineral Oil Enema) 133 ml DAILY PRN [place] CONSTIPATION; Start 05/23/16 at 14:30 Amiodarone HCl (Cordarone) 200 mg DAILY PO ; Start 05/26/16 at 09:00 APRIL STEVENS M.D. May 25, 2016 23:55
[2016-05-26] VITALS (13 sets, daily range): BP systolic 123–175; BP diastolic 74–96; PULSE 51–65; RESP 16–18
[2016-05-26] MEDS: DILTIAZEM (CD) 120 MG CAP PO SCH (08:49)
[2016-05-26] MEDS: DOCUSATE SODIUM 100 MG CAP PO SCH ×2 (08:50→20:32)
[2016-05-26] MEDS: AMIODARONE 200 MG TAB PO SCH (08:50)
[2016-05-26] MEDS: FAMOTIDINE 20 MG INJ IV SCH ×2 (08:51→20:26)
[2016-05-26] MEDS: ASPIRIN 81 MG TAB PO SCH (08:51)
[2016-05-26] MEDS: SALMETEROL/FLUTICASONE 250/50 INHA INH SCH ×2 (08:52→22:33)
[2016-05-26] MEDS: ENOXAPARIN 30 MG/0.3 ML SYG SC SCH (09:00)
--- NOTE | 2016-05-26 12:13 | PN ---
Date/Time of Note Date/Time of Note DATE: 05/26/16 TIME: 11:46 Assessment/Plan VTE Prophylaxis VTE Prophylaxis Intervention: LMWH Lines/Catheters IV Catheter Type (from Nrsg): PICC Line Central line still needed: Yes (for iV access) Urinary Cath still in place: No Assessment/Plan Assessment/Plan 65-year-old male with: 1. 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 Paroxysmal A fib. On Tele. MRI brain confirming Right MCA territory CVA CTA head with occlusion of the mid M1 segment of the right middle cerebral artery with nonvisualization of right remaining distal MCA branches Still lethargic and with deep left hemiparesis but more awake periods Continue rate/rhythm control, No anticoagulation x 14 days due to large size of CVA and high risk for hemorrhagic conversion. On ASA for now and to start anticog on 05/27. Will clarify with Neuriology if needs CT head done prior to initiation. Aggressive PT/OT/ST to continue. 2. Paroxysmal Atrial Fibrillation: on Amiodarone and prn Cardizem. Has been in SR lately and episodes of bradycardia noted, agree with decrease Amio to 200 mg po bid done by Cardiology today 2D echo Ok, Dr Barrios following. 3. Hypertension. BP stable. 4. Asthma. Continue inhaler and nebulizers prn. 5. Bilateral Superficial venous thrombosis of the basilic vein, at site of previous IV site, IVs were removed cold compress and elevation. Seems to be resolving clinically with resolved edema. No need to anticoagulate for now, symptomatic treatment and repeat Doppler in 1 week. Prophylaxis. S/p TPA. Pepcid for GI prophylaxis. Lovenox, prophylactic dose for DVT ppx and ASA for secondary stroke prevention. Condom cath in place DISPOSITION: Transfer to Med surg while awaiting and trying to solve issues regarding placement. Continuing PT/OT/ST aggressive with plans for SNF as patient not qualifying for ARU so far but family refusing SNF discharge over the weekend Appreciate Neurology and Cardiology follow up. Subjective 24 Hr Interval Summary Free Text/Dictation Patient remains stable but still with lethargy although with some improvement and deep left hemiparesis Tolerating po meds and stable for SNF from medical and cardio standpoint Appreciate case management effort for placement to SNF but family still refusing and would rather take patient home which is not recommended at this time and patient not good candidate for ARU as of now Exam/Review of Systems Vital Signs Vitals Vital Signs Date Time Temp Pulse Resp B/P Pulse Ox O2 Delivery O2 Flow Rate FiO2 05/26/16 09:02 60 05/26/16 08:17 97.8 17 131/75 97 05/22/16 17:46 21 Intake and Output 05/25/16 05/25/16 05/26/16 15:00 23:00 07:00 Intake Total 320 ml 200 ml Balance 320 ml 200 ml Exam Constitutional: other (easily arousable ) Respiratory: clear to auscultation, normal air movement Cardiovascular: nl pulses, regular rate and rhythm Gastrointestinal: non-tender, soft Musculoskeletal: nl extremities to inspection Extremities: normal pulses, other (no edema, clubbing or cyanosis ) Neurological: BUSBOY II-XII intact, focal weakness (deep left hemiparesis ), lethargic, other (facial droop resolved ) Results Result Diagram: 05/23/16 0540 05/24/16 0600 Medications Medications Current Medications Acetaminophen (Tylenol Tab) 650 mg Q4H PRN PO Temp greater than 99.6F Last administered on 05/25/16 20:56; Admin Dose 650 MG; Start 05/13/16 at 16:30 Docusate Sodium (Colace) 100 mg BID PO Last administered on 05/26/16 08:50; Admin Dose 100 MG; Start 05/13/16 at 21:00 Ondansetron HCl (Zofran Inj) 4 mg Q6H PRN IV NAUSEA AND/OR VOMITING; Start at 16:30 Acetaminophen (Tylenol Tab) 650 mg Q6H PRN PO PAIN LEVEL 1-3 OR FEVER; Start at 16:30 Docusate Sodium (Colace) 100 mg Q12H PRN PO CONSTIPATION Last administered on 09:43; Admin Dose 100 MG; Start 05/13/16 at 16:30 Magnesium Hydroxide (Milk Of Mag) 30 ml DAILY PRN PO CONSTIPATION Last administered on 05/21/16 20:42; Admin Dose 30 ML; Start 05/13/16 at 16:30 Bisacodyl (Dulcolax Supp) 10 mg DAILY PRN [place] CONSTIPATION Last administered on 05/24/16 12:37; Admin Dose 10 MG; Start 05/13/16 at 16:30 Famotidine (Pepcid Iv) 20 mg Q12 IV Last administered on 05/26/16 08:51; Admin Dose 20 MG; Start 05/13/16 at 21:00 Salmeterol Xinafoate/ Fluticasone (Advair 250/50 Diskus) 1 inh BID INH Last administered on 05/24/16 09:38; Admin Dose 1 INH; Start 05/13/16 at 21:00 Atorvastatin Calcium (Lipitor) 80 mg QHS PO Last administered on 05/25/16 20: 24; Admin Dose 80 MG; Start 05/14/16 at 21:00 Hydralazine HCl (Apresoline) 10 mg Q4H PRN IV ELEVATED BLOOD PRESSURE Last administered on 05/18/16 01:36; Admin Dose 10 MG; Start 05/14/16 at 22:30 Enoxaparin Sodium (Lovenox) 30 mg DAILY SC Last administered on 05/26/16 09:00 ; Admin Dose 30 MG; Start 05/18/16 at 09:00 Diltiazem HCl (Cardizem Iv) 10 mg Q1H PRN IV HR>120 Last administered on 14:56; Admin Dose 10 MG; Start 05/18/16 at 10:00 Aspirin (Aspirin) 81 mg DAILY PO Last administered on 05/26/16 08:51; Admin Dose 81 MG; Start 05/19/16 at 16:00 Diltiazem HCl (Cardizem Cd) 120 mg DAILY PO Last administered on 05/26/16 08: 49; Admin Dose 120 MG; Start 05/23/16 at 09:00 Mineral Oil (Fleet Mineral Oil Enema) 133 ml DAILY PRN [place] CONSTIPATION; Start 05/23/16 at 14:30 Amiodarone HCl (Cordarone) 200 mg DAILY PO Last administered on 05/26/16 08:50 ; Admin Dose 200 MG; Start 05/26/16 at 09:00 NICO BUCHANAN May 26, 2016 11:56
--- NOTE | 2016-05-26 14:58 | CONS ---
Date/Time of Note Date/Time of Note DATE: 05/26/16 TIME: 14:56 Assessment/Plan Assessment/Plan Additional Assessment/Plan Right MCA CVA Paroxysmal atrial fibrillation, currently sinus rhythm Preserved ejection fraction Hypertension Dyslipidemia Superficial thrombus left upper extremity -Patient remains in sinus rhythm, continue amiodarone and Cardizem, start anticoagulation when okay by our neurology colleagues. Consultation Date/Type/Reason Admit Date/Time May 13, 2016 at 16:42 Initial Consult Date 05/14/16 Type of Consultation: cv Referring Provider: NICO BUCHANAN 24 HR Interval Summary Free Text/Dictation Patient seen and examined, mental status improving as per family Exam/Review of Systems Vital Signs Vitals Vital Signs Date Time Temp Pulse Resp B/P Pulse Ox O2 Delivery O2 Flow Rate FiO2 05/26/16 12:04 99.2 76 17 134/76 95 05/22/16 17:46 21 Intake and Output 05/25/16 05/25/16 05/26/16 15:00 23:00 07:00 Intake Total 320 ml 200 ml Balance 320 ml 200 ml Exam Sleeping but arousable, no apparent distress Head: normocephalic Neck: supple Respiratory: other (Coarse breath sounds bilaterally, no wheezing) Cardiovascular: other (S1-S2 heard), regular rate and rhythm Gastrointestinal: bowel sounds, non-tender, other (No guarding), soft Extremities: edema (Trace) Results Result Diagram: 05/23/16 0540 05/24/16 0600 Medications Medications Current Medications Acetaminophen (Tylenol Tab) 650 mg Q4H PRN PO Temp greater than 99.6F Last administered on 05/25/16 20:56; Admin Dose 650 MG; Start 05/13/16 at 16:30 Docusate Sodium (Colace) 100 mg BID PO Last administered on 05/26/16 08:50; Admin Dose 100 MG; Start 05/13/16 at 21:00 Ondansetron HCl (Zofran Inj) 4 mg Q6H PRN IV NAUSEA AND/OR VOMITING; Start at 16:30 Acetaminophen (Tylenol Tab) 650 mg Q6H PRN PO PAIN LEVEL 1-3 OR FEVER; Start at 16:30 Docusate Sodium (Colace) 100 mg Q12H PRN PO CONSTIPATION Last administered on 09:43; Admin Dose 100 MG; Start 05/13/16 at 16:30 Magnesium Hydroxide (Milk Of Mag) 30 ml DAILY PRN PO CONSTIPATION Last administered on 05/21/16 20:42; Admin Dose 30 ML; Start 05/13/16 at 16:30 Bisacodyl (Dulcolax Supp) 10 mg DAILY PRN [place] CONSTIPATION Last administered on 05/24/16 12:37; Admin Dose 10 MG; Start 05/13/16 at 16:30 Famotidine (Pepcid Iv) 20 mg Q12 IV Last administered on 05/26/16 08:51; Admin Dose 20 MG; Start 05/13/16 at 21:00 Salmeterol Xinafoate/ Fluticasone (Advair 250/50 Diskus) 1 inh BID INH Last administered on 05/24/16 09:38; Admin Dose 1 INH; Start 05/13/16 at 21:00 Atorvastatin Calcium (Lipitor) 80 mg QHS PO Last administered on 05/25/16 20: 24; Admin Dose 80 MG; Start 05/14/16 at 21:00 Hydralazine HCl (Apresoline) 10 mg Q4H PRN IV ELEVATED BLOOD PRESSURE Last administered on 05/18/16 01:36; Admin Dose 10 MG; Start 05/14/16 at 22:30 Enoxaparin Sodium (Lovenox) 30 mg DAILY SC Last administered on 05/26/16 09:00 ; Admin Dose 30 MG; Start 05/18/16 at 09:00 Diltiazem HCl (Cardizem Iv) 10 mg Q1H PRN IV HR>120 Last administered on 14:56; Admin Dose 10 MG; Start 05/18/16 at 10:00 Aspirin (Aspirin) 81 mg DAILY PO Last administered on 05/26/16 08:51; Admin Dose 81 MG; Start 05/19/16 at 16:00 Diltiazem HCl (Cardizem Cd) 120 mg DAILY PO Last administered on 05/26/16 08: 49; Admin Dose 120 MG; Start 05/23/16 at 09:00 Mineral Oil (Fleet Mineral Oil Enema) 133 ml DAILY PRN [place] CONSTIPATION; Start 05/23/16 at 14:30 Amiodarone HCl (Cordarone) 200 mg DAILY PO Last administered on 05/26/16t 08:50 ; Admin Dose 200 MG; Start 05/26/16 at 09:00 Angel Barrios DO May 26, 2016 14:57
[2016-05-26] MEDS: hydrALAzine 20 MG INJ IV PRN (20:26)
[2016-05-26] MEDS: ATORVASTATIN 40 MG TAB PO SCH (20:28)
[2016-05-27 04:00] VITALS: BP 153/87; PULSE 67
[2016-05-27 07:43] VITALS: BP 150/79; RESP 17
[2016-05-27] MEDS: ASPIRIN 81 MG TAB PO SCH (09:52)
[2016-05-27] MEDS: ACETAMINOPHEN 325 MG TAB PO PRN (09:52)
[2016-05-27] MEDS: SALMETEROL/FLUTICASONE 250/50 INHA INH SCH ×2 (09:53→20:44)
[2016-05-27] MEDS: AMIODARONE 200 MG TAB PO SCH (09:53)
[2016-05-27] MEDS: DILTIAZEM (CD) 120 MG CAP PO SCH (09:53)
[2016-05-27] MEDS: DOCUSATE SODIUM 100 MG CAP PO SCH ×2 (09:53→20:44)
[2016-05-27] MEDS: FAMOTIDINE 20 MG INJ IV SCH (09:57)
[2016-05-27] MEDS: ENOXAPARIN 30 MG/0.3 ML SYG SC SCH (10:12)
--- NOTE | 2016-05-27 10:32 | PDOCDIS ---
Discharge Instructions CONDITION Patient Condition: Stable HOME CARE INSTRUCTIONS: Special Diet: PUREED ACTIVITY: Activity Restrictions: Slowly Increase Activity FOLLOW UP/APPOINTMENTS Appointments Follow up with PCP within 1 to 2 weeks Follow up with Neurology as needed within 2 to 4 weeks Follow up with Cardiology within 2 to 4 weeks Continue PT/OT/NICO MONSALVE May 27, 2016 10:32
--- NOTE | 2016-05-27 14:09 | PN ---
Date/Time of Note Date/Time of Note DATE: 05/27/16 TIME: 13:44 Assessment/Plan VTE Prophylaxis VTE Prophylaxis Intervention: LMWH Lines/Catheters IV Catheter Type (from Nrsg): PICC Line Central line still needed: Yes (for IV access) Urinary Cath still in place: No Reason Cath still needed: other (indicate) (condom cath ) Assessment/Plan Assessment/Plan 65-year-old male with: 1. 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 Paroxysmal A fib. Now on Med Surg. Stable but disabled, likely permanently given severe left hemiparesis from CVA MRI brain confirming Right MCA territory CVA Repeat CT head today for 2 weeks follow up prior to starting Eliquis tonight. Continue rate/rhythm control, starting eliquis today and d/c ASA and lovenox ppx dose Aggressive PT/OT/ST to continue. 2. Paroxysmal Atrial Fibrillation: on Amiodarone and prn Cardizem. Has been in SR lately and episodes of bradycardia noted, agree with decrease Amio to 200 mg po bid done by Cardiology today 2D echo Ok, Dr Barrios following. 3. Hypertension. BP stable. Will titrate meds further up if needed. 4. Asthma. Continue inhaler and nebulizers prn. 5. Bilateral Superficial venous thrombosis of the basilic vein, at site of previous IV site, IVs were removed cold compress and elevation. Seems to be resolving clinically with resolved edema Patient to start Eliquis today later anyways due to PAF and acute CVA. Prophylaxis. S/p TPA. Pepcid for GI prophylaxis. To start Eliquis later today so d/c Lovenox, prophylactic dose and also d/c ASA. DISPOSITION: On Med surg while awaiting and trying to solve issues regarding placement. CT head today for 2 weeks follow up. Continuing PT/OT/ST aggressive with plans for SNF today after CT done as patient not qualifying for ARU. I had another discussion with the family and still refusing, they will appeal discharge and agree/ready to be financially responsible if lose appeal. Appreciate Neurology and Cardiology follow up. Subjective 24 Hr Interval Summary Free Text/Dictation Patient with some improvement as much more awake and was able to advance to soft diet Still with deep left hemiparesis CT head today prior to starting eliquis Stable from Cardio standpoint and now on Med Surg Exam/Review of Systems Vital Signs Vitals Vital Signs Date Time Temp Pulse Resp B/P Pulse Ox O2 Delivery O2 Flow Rate FiO2 05/27/16 07:43 98.5 74 17 150/79 95 Intake and Output 05/26/16 05/26/16 05/27/16 15:00 23:00 07:00 Intake Total 700 ml 400 ml Balance 700 ml 400 ml Exam Constitutional: alert, oriented (x2 to 3) Respiratory: clear to auscultation, normal air movement Cardiovascular: nl pulses, regular rate and rhythm Gastrointestinal: non-tender, soft Musculoskeletal: nl extremities to inspection Extremities: normal pulses Neurological: P[employer]ING G[employer]AGE [employer]NAGER II-XII intact, confused (especially at night ), focal weakness (left hemiparesis ), other (much more awake ) Results Result Diagram: 05/23/16 0540 05/24/16 0600 Medications Medications Current Medications Acetaminophen (Tylenol Tab) 650 mg Q4H PRN PO Temp greater than 99.6F Last administered on 05/25/16 20:56; Admin Dose 650 MG; Start 05/13/16 at 16:30 Docusate Sodium (Colace) 100 mg BID PO Last administered on 05/27/16 09:53; Admin Dose 100 MG; Start 05/13/16 at 21:00 Ondansetron HCl (Zofran Inj) 4 mg Q6H PRN IV NAUSEA AND/OR VOMITING; Start at 16:30 Acetaminophen (Tylenol Tab) 650 mg Q6H PRN PO PAIN LEVEL 1-3 OR FEVER Last administered on 05/27/16 09:52; Admin Dose 650 MG; Start 05/13/16 at 16:30 Docusate Sodium (Colace) 100 mg Q12H PRN PO CONSTIPATION Last administered on 09:43; Admin Dose 100 MG; Start 05/13/16 at 16:30 Magnesium Hydroxide (Milk Of Mag) 30 ml DAILY PRN PO CONSTIPATION Last administered on 05/21/16 20:42; Admin Dose 30 ML; Start 05/13/16 at 16:30 Bisacodyl (Dulcolax Supp) 10 mg DAILY PRN [place] CONSTIPATION Last administered on 05/24/16 12:37; Admin Dose 10 MG; Start 05/13/16 at 16:30 Salmeterol Xinafoate/ Fluticasone (Advair 250/50 Diskus) 1 inh BID INH Last administered on 05/27/16 09:53; Admin Dose 1 INH; Start 05/13/16 at 21:00 Atorvastatin Calcium (Lipitor) 80 mg QHS PO Last administered on 05/26/16 20: 28; Admin Dose 80 MG; Start 05/14/16 at 21:00 Hydralazine HCl (Apresoline) 10 mg Q4H PRN IV ELEVATED BLOOD PRESSURE Last administered on 05/26/16 20:26; Admin Dose 10 MG; Start 05/14/16 at 22:30 Diltiazem HCl (Cardizem Iv) 10 mg Q1H PRN IV HR>120 Last administered on 14:56; Admin Dose 10 MG; Start 05/18/16 at 10:00 Diltiazem HCl (Cardizem Cd) 120 mg DAILY PO Last administered on 05/27/16 09: 53; Admin Dose 120 MG; Start 05/23/16 at 09:00 Mineral Oil (Fleet Mineral Oil Enema) 133 ml DAILY PRN [place] CONSTIPATION; Start 05/23/16 at 14:30 Amiodarone HCl (Cordarone) 200 mg DAILY PO Last administered on 05/27/16 09:53 ; Admin Dose 200 MG; Start 05/26/16 at 09:00 Apixaban (Eliquis) 5 mg BID PO ; Start 05/27/16 at 21:00 Famotidine (Pepcid) 20 mg Q12 PO ; Start 05/27/16 at 21:00 NICO BUCHANAN May 27, 2016 13:55
--- NOTE | 2016-05-27 17:11 | RADRPT ---
PROCEDURE: CT brain without contrast CLINICAL INDICATION: CVA, follow up TECHNIQUE: CT of the brain without contrast performed on a multidetector CT scanner, with multiplan ar reformats. One or more of the following dose reduction techniques were used: Automated exposure control, adjustment in mA and / or kV according to patient size, use of iterative reconstructive víctor hnique. CTDIvol = 39/40 mGy; DLP = 634/79 mGy-cm. COMPARISON: CT brain 05/14/2016 FINDINGS: There is an evolving right middle cerebral artery territory infarct primarily involving the right te mporal, insular, basal ganglia and adjacent internal capsule regions with edema extending into the f rontoparietal regions. Subtle tiny hypodense focus at or near the medial right temporal region may r eflect hemorrhage. There is mass effect with partial right lateral ventricle effacement and shift of the septum pelluci dum measuring 3 mm to the left. Basal cisterns remain patent. No hydrocephalus is identified. The rest of the ventricles and sulci are mildly enlarged compatible with underlying volume loss. Osseous structures are unremarkable. Mastoid air cells and imaged paranasal sinuses grossly clear. IMPRESSION: 1. Evolving recent/subacute right middle cerebral artery territory infarct, with possible tiny focu s of hemorrhage at / near the right temporal region. 2. Mild 3 mm leftward midline shift. Call report: Findings were called to Sammy Bangura RN at 05:10 p.m. on 05/27/2016. RPTAT: VV .Kip Schmidt MD, Date Time Electronically viewed and signed by .Kip Schmidt MD, on 05/27/2016 17:11 .O/
[2016-05-27 19:25] VITALS: BP 146/82; RESP 18
[2016-05-27] MEDS: FAMOTIDINE 20 MG TAB PO SCH (20:43)
[2016-05-27] MEDS: ATORVASTATIN 40 MG TAB PO SCH (20:44)
[2016-05-27] MEDS: APIXABAN 5 MG TABLET PO SCH (20:44)
[2016-05-28 05:46] LABS: POTASSIUM 4.2 mmol/L (3.5-5.1)
[2016-05-28 05:49] LABS: CREATININE 0.85 mg/dl (0.61-1.24)
[2016-05-28 05:50] LABS: CALCIUM 9.3 mg/dl (8.4-10.2)
[2016-05-28] MEDS: BISACODYL 10 MG SUPP PR PRN (06:23)
[2016-05-28 06:46] LABS: MAGNESIUM 1.9 mg/dl (1.7-2.5)
[2016-05-28 08:12] VITALS: BP 137/78; RESP 18
[2016-05-28] MEDS: FAMOTIDINE 20 MG TAB PO SCH ×2 (08:26→20:38)
[2016-05-28] MEDS: SALMETEROL/FLUTICASONE 250/50 INHA INH SCH ×2 (08:27→20:39)
[2016-05-28] MEDS: APIXABAN 5 MG TABLET PO SCH ×2 (08:28→20:38)
[2016-05-28] MEDS: AMIODARONE 200 MG TAB PO SCH (08:28)
[2016-05-28] MEDS: DILTIAZEM (CD) 120 MG CAP PO SCH (08:28)
[2016-05-28] MEDS: DOCUSATE SODIUM 100 MG CAP PO SCH ×2 (08:28→20:38)
--- NOTE | 2016-05-28 12:03 | PN ---
Date/Time of Note Date/Time of Note DATE: 05/28/16 TIME: 11:46 Assessment/Plan VTE Prophylaxis VTE Prophylaxis Intervention: other (on Eliquis ) Lines/Catheters IV Catheter Type (from Nrsg): PICC Line Central line still needed: Yes (for IV access ) Urinary Cath still in place: No Reason Cath still needed: other (indicate) (condom cath ) Assessment/Plan Assessment/Plan 65-year-old male with: 1. 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 Paroxysmal A fib. Now on Med Surg. Stable but disabled, likely permanently given severe left hemiparesis from CVA MRI brain confirming Right MCA territory CVA CT head results discussed with Neurology Dr Emmanuel yesterday, she also reviewed the CT, there is a possible tiny focus of hemorrhage at / near the right temporal region indeed which she is not surprised to see given the size of the CVA, she recommends to start anticoagulation as benefits outweigh risk of another CVA and that the patient has been improving neurologically. Will repeat CT if any signs of neurological decline. Patient has been started on Eliquis 5 mg po bid last night, ASA and Lovenox have been discontinued yesterday Continue rate/rhythm control for A fib Aggressive PT/OT/ST to continue. . 2. Paroxysmal Atrial Fibrillation: on Amiodarone and prn Cardizem. Has been in SR lately and episodes of bradycardia noted, agree with decrease Amio to 200 mg po bid done by Cardiology today 2D echo Ok, Dr Barrios following. Now on Eliquis 3. Hypertension. BP stable. Will titrate meds further up if needed. 4. Asthma. Continue inhaler and nebulizers prn. 5. Bilateral Superficial venous thrombosis of the basilic vein, at site of previous IV site, IVs were removed cold compress and elevation. Seems to be resolving clinically with resolved edema On Eliquis now Prophylaxis. S/p TPA. Pepcid for GI prophylaxis. On Eliquis DISPOSITION: On Med surg while awaiting and trying to solve issues regarding placement. Continuing PT/OT/ST aggressive with plans for SNF today after CT done as patient not qualifying for ARU. Family is appealing discharge and agree/ready to be financially responsible if lose appeal. Appreciate Neurology and Cardiology follow up. Subjective 24 Hr Interval Summary Free Text/Dictation Patient with deep left hemiparesis, right facial droop much better and much more awake today and very interactive CT head reviewed with Neurology prior to initiation of [place] Appealing of discharge process ongoing as family refusing SNF placement and want ARU and want patient to stay in hospital until qualifies for ARU Exam/Review of Systems Vital Signs Vitals Vital Signs Date Time Temp Pulse Resp B/P Pulse Ox O2 Delivery O2 Flow Rate FiO2 05/28/16 08:12 97.5 59 18 137/78 96 Intake and Output 05/27/16 05/27/16 05/28/16 15:00 23:00 07:00 Intake Total 300 ml 480 ml Balance 300 ml 480 ml Exam Constitutional: alert, oriented (x3), other (primarly greenlandic speaking ) Respiratory: clear to auscultation, normal air movement Cardiovascular: nl pulses, regular rate and rhythm Gastrointestinal: non-tender, soft Genitourinary - Male: other (condom catheter ) Musculoskeletal: nl extremities to inspection Extremities: normal pulses, other (no edema, clubbing or cyanosis ) Neurological: focal weakness (deep left hemiparesis ), other (right facial droop better, awake and playing Poker on phone) Results Result Diagram: 05/28/16 0450 Results 24 hrs Laboratory Tests Test 05/28/16 04:50 Anion Gap 16 Blood Urea Nitrogen 13 Calcium Level 9.3 Carbon Dioxide Level 29 Chloride Level 101 Creatinine 0.85 Glucose Level 116 Magnesium Level 1.9 Phosphorus Level 4.0 Potassium Level 4.2 Sodium Level 142 Medications Medications Current Medications Acetaminophen (Tylenol Tab) 650 mg Q4H PRN PO Temp greater than 99.6F Last administered on 05/25/16 20:56; Admin Dose 650 MG; Start 05/13/16 at 16:30 Docusate Sodium (Colace) 100 mg BID PO Last administered on 05/28/16 08:28; Admin Dose 100 MG; Start 05/13/16 at 21:00 Ondansetron HCl (Zofran Inj) 4 mg Q6H PRN IV NAUSEA AND/OR VOMITING; Start at 16:30 Acetaminophen (Tylenol Tab) 650 mg Q6H PRN PO PAIN LEVEL 1-3 OR FEVER Last administered on 05/27/16 09:52; Admin Dose 650 MG; Start 05/13/16 at 16:30 Docusate Sodium (Colace) 100 mg Q12H PRN PO CONSTIPATION Last administered on 09:43; Admin Dose 100 MG; Start 05/13/16 at 16:30 Magnesium Hydroxide (Milk Of Mag) 30 ml DAILY PRN PO CONSTIPATION Last administered on 05/21/16 20:42; Admin Dose 30 ML; Start 05/13/16 at 16:30 Bisacodyl (Dulcolax Supp) 10 mg DAILY PRN [place] CONSTIPATION Last administered on 05/28/16 06:23; Admin Dose 10 MG; Start 05/13/16 at 16:30 Salmeterol Xinafoate/ Fluticasone (Advair 250/50 Diskus) 1 inh BID INH Last administered on 05/28/16 08:27; Admin Dose 1 INH; Start 05/13/16 at 21:00 Atorvastatin Calcium (Lipitor) 80 mg QHS PO Last administered on 05/27/16 20: 44; Admin Dose 80 MG; Start 05/14/16 at 21:00 Hydralazine HCl (Apresoline) 10 mg Q4H PRN IV ELEVATED BLOOD PRESSURE Last administered on 05/26/16 20:26; Admin Dose 10 MG; Start 05/14/16 at 22:30 Diltiazem HCl (Cardizem Iv) 10 mg Q1H PRN IV HR>120 Last administered on 14:56; Admin Dose 10 MG; Start 05/18/16 at 10:00 Diltiazem HCl (Cardizem Cd) 120 mg DAILY PO Last administered on 05/27/16 09: 53; Admin Dose 120 MG; Start 05/23/16 at 09:00 Mineral Oil (Fleet Mineral Oil Enema) 133 ml DAILY PRN [place] CONSTIPATION; Start 05/23/16 at 14:30 Amiodarone HCl (Cordarone) 200 mg DAILY PO Last administered on 05/28/16 08:28 ; Admin Dose 200 MG; Start 05/26/16 at 09:00 Apixaban (Eliquis) 5 mg BID PO Last administered on 05/28/16 08:28; Admin Dose 5 MG; Start 05/27/16 at 21:00 Famotidine (Pepcid) 20 mg Q12 PO Last administered on 05/28/16 08:26; Admin Dose 20 MG; Start 05/27/16 at 21:00 NICO BUCHANAN May 28, 2016 11:59
--- NOTE | 2016-05-28 14:59 | CONS ---
Date/Time of Note Date/Time of Note DATE: 05/28/16 TIME: 14:57 Assessment/Plan Assessment/Plan Additional Assessment/Plan Right MCA CVA Paroxysmal atrial fibrillation, currently sinus rhythm Preserved ejection fraction Hypertension Dyslipidemia Superficial thrombus left upper extremity -Patient remains in regular rhythm. Will decrease amiodarone to 100 mg daily, continue Cardizem. Given patient 14 days since CVA, has been started on anticoagulation. Continue statin therapy. Consultation Date/Type/Reason Admit Date/Time May 13, 2016 at 16:42 Initial Consult Date 05/14/16 Type of Consultation: cv Referring Provider: NICO BUCHANAN 24 HR Interval Summary Free Text/Dictation Patient seen and examined, more awake, following commands, family at bedside Exam/Review of Systems Vital Signs Vitals Vital Signs Date Time Temp Pulse Resp B/P Pulse Ox O2 Delivery O2 Flow Rate FiO2 05/28/16 08:12 97.5 59 18 137/78 96 Intake and Output 05/27/16 05/27/16 05/28/16 15:00 23:00 07:00 Intake Total 300 ml 480 ml Balance 300 ml 480 ml Exam Sleeping but arousable and follows commands, no apparent distress Constitutional: alert Head: normocephalic Neck: supple Respiratory: other (Coarse breath sounds bilaterally, no wheezing) Cardiovascular: other (S1-S2 heard), regular rate and rhythm Gastrointestinal: bowel sounds, non-tender, other (No guarding), soft Extremities: edema Results Result Diagram: 05/28/16 0450 Results 24 hrs Laboratory Tests Test 05/28/16 04:50 Anion Gap 16 Blood Urea Nitrogen 13 Calcium Level 9.3 Carbon Dioxide Level 29 Chloride Level 101 Creatinine 0.85 Glucose Level 116 Magnesium Level 1.9 Phosphorus Level 4.0 Potassium Level 4.2 Sodium Level 142 Medications Medications Current Medications Acetaminophen (Tylenol Tab) 650 mg Q4H PRN PO Temp greater than 99.6F Last administered on 05/25/16 20:56; Admin Dose 650 MG; Start 05/13/16 at 16:30 Docusate Sodium (Colace) 100 mg BID PO Last administered on 05/28/16 08:28; Admin Dose 100 MG; Start 05/13/16 at 21:00 Ondansetron HCl (Zofran Inj) 4 mg Q6H PRN IV NAUSEA AND/OR VOMITING; Start at 16:30 Acetaminophen (Tylenol Tab) 650 mg Q6H PRN PO PAIN LEVEL 1-3 OR FEVER Last administered on 05/27/16 09:52; Admin Dose 650 MG; Start 05/13/16 at 16:30 Docusate Sodium (Colace) 100 mg Q12H PRN PO CONSTIPATION Last administered on 09:43; Admin Dose 100 MG; Start 05/13/16 at 16:30 Magnesium Hydroxide (Milk Of Mag) 30 ml DAILY PRN PO CONSTIPATION Last administered on 05/21/16 20:42; Admin Dose 30 ML; Start 05/13/16 at 16:30 Bisacodyl (Dulcolax Supp) [address] CONSTIPATION Last administered on 05/28/16 06:23; Admin Dose 10 MG; Start 05/13/16 at 16:30 Salmeterol Xinafoate/ Fluticasone (Advair 250/50 Diskus) 1 inh BID INH Last administered on 05/28/16 08:27; Admin Dose 1 INH; Start 05/13/16 at 21:00 Atorvastatin Calcium (Lipitor) 80 mg QHS PO Last administered on 05/27/16 20: 44; Admin Dose 80 MG; Start 05/14/16 at 21:00 Hydralazine HCl (Apresoline) 10 mg Q4H PRN IV ELEVATED BLOOD PRESSURE Last administered on 05/26/16 20:26; Admin Dose 10 MG; Start 05/14/16 at 22:30 Diltiazem HCl (Cardizem Iv) 10 mg Q1H PRN IV HR>120 Last administered on 14:56; Admin Dose 10 MG; Start 05/18/16 at 10:00 Diltiazem HCl (Cardizem Cd) 120 mg DAILY PO Last administered on 05/27/16 09: 53; Admin Dose 120 MG; Start 05/23/16 at 09:00 Mineral Oil (Fleet Mineral Oil Enema) [address] CONSTIPATION; Start 05/23/16 at 14:30 Amiodarone HCl (Cordarone) 200 mg DAILY PO Last administered on 05/28/16 08:28 ; Admin Dose 200 MG; Start 05/26/16 at 09:00 Apixaban (Eliquis) 5 mg BID PO Last administered on 05/28/16 08:28; Admin Dose 5 MG; Start 05/27/16 at 21:00 Famotidine (Pepcid) 20 mg Q12 PO Last administered on 05/28/16 08:26; Admin Dose 20 MG; Start 05/27/16 at 21:00 Angel Barrios DO May 28, 2016 14:59
[2016-05-28 20:00] VITALS: BP 153/80; PULSE 60
[2016-05-28] MEDS: ATORVASTATIN 40 MG TAB PO SCH (20:38)
[2016-05-28 20:47] VITALS: BP 153/80; RESP 18
[2016-05-28 23:40] VITALS: BP 166/90; PULSE 65
[2016-05-28] MEDS: hydrALAzine 20 MG INJ IV PRN (23:40)
[2016-05-29] VITALS (13 sets, daily range): BP systolic 110–181; BP diastolic 62–104; PULSE 69–92; RESP 16–20
[2016-05-29] MEDS: ACETAMINOPHEN 325 MG TAB PO PRN ×3 (02:31→21:59)
[2016-05-29] MEDS: hydrALAzine 20 MG INJ IV PRN ×2 (03:12→11:35)
[2016-05-29] MEDS: APIXABAN 5 MG TABLET PO SCH (08:25)
[2016-05-29] MEDS: DOCUSATE SODIUM 100 MG CAP PO SCH ×2 (08:25→20:31)
[2016-05-29] MEDS: FAMOTIDINE 20 MG TAB PO SCH ×2 (08:25→20:31)
[2016-05-29] MEDS: SALMETEROL/FLUTICASONE 250/50 INHA INH SCH ×2 (08:25→20:30)
[2016-05-29] MEDS: DILTIAZEM (CD) 120 MG CAP PO SCH (08:26)
[2016-05-29] MEDS: AMIODARONE 200 MG TAB PO SCH (08:27)
[2016-05-29] MEDS: LOSARTAN 25 MG TAB PO SCH ×2 (13:04→20:31)
--- NOTE | 2016-05-29 13:28 | PN ---
Date/Time of Note Date/Time of Note DATE: 05/29/16 TIME: 12:57 Assessment/Plan VTE Prophylaxis VTE Prophylaxis Intervention: other (Eliquis) Lines/Catheters IV Catheter Type (from Nrs): PICC Line Central line still needed: Yes (for IV access ) Urinary Cath still in place: No Assessment/Plan Assessment/Plan 65-year-old male with: 1. 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 Paroxysmal A fib. Now on Med Surg. Stable but disabled, likely permanently given severe left hemiparesis from CVA MRI brain confirming Right MCA territory CVA CT head 05/27 results discussed with Neurology Dr Emmanuel yesterday, she also reviewed the CT, there is a possible tiny focus of hemorrhage at / near the right temporal region indeed which she is not surprised to see given the size of the CVA, she recommends to start anticoagulation as benefits outweigh risk of another CVA and that the patient has been improving neurologically. Repeat CT head today since patient with complaints of severe CAMPBELL. Patient currently on Eliquis 5 mg po bid x 2 days now. Continue rate/rhythm control for A fib Aggressive PT/OT/ST to continue. . 2. Paroxysmal Atrial Fibrillation: on Amiodarone and prn Cardizem. Has been in SR lately and episodes of bradycardia noted, agree with further decrease of Amio to 100 mg po daily done by Cardiology today 2D echo Ok, Dr Barrios following. Now on Eliquis 3. Hypertension. Elevated BP overnight and this AM despite prn Hydralazine given , add Cozaar and scheduled Hydralazine. Will titrate meds further up as needed. 4. Asthma. Continue inhaler and nebulizers prn. 5. Bilateral Superficial venous thrombosis of the basilic vein, at site of previous IV site, IVs were removed cold compress and elevation. Seems to be resolving clinically with resolved edema On Eliquis currently. Prophylaxis. S/p TPA. Pepcid for GI prophylaxis. On Eliquis DISPOSITION: On Med surg while awaiting and trying to solve issues regarding placement. Repeat CT head pending today again. Continuing PT/OT/ST aggressive with plans for SNF today after CT done as patient not qualifying for ARU. Family is appealing discharge and agree/ready to be financially responsible if lose appeal. Appreciate Neurology and Cardiology follow up. Subjective 24 Hr Interval Summary Free Text/Dictation Patient with complains of CAMPBELL and still with elevated BP this AM, He has been agitated all night per family and frustrated with current condition and depressed. Given significant CVA size and now on anticoag and complaints of CAMPBELL overnight, repeat CT head pending since patient still in house BP meds added Exam/Review of Systems Vital Signs Vitals Vital Signs Date Time Temp Pulse Resp B/P Pulse Ox O2 Delivery O2 Flow Rate FiO2 05/29/16 12:15 91 165/93 05/29/16 07:32 98.2 16 90 Intake and Output 05/28/16 05/28/16 05/29/16 15:00 23:00 07:00 Intake Total 1040 ml 520 ml Output Total 400 ml Balance 640 ml 520 ml Exam Constitutional: alert, oriented (x2), other (left hemiapresis and confused still, impulsive ) Psych: confusion, depression (reported by family ) Respiratory: clear to auscultation, normal air movement Cardiovascular: nl pulses, regular rate and rhythm Gastrointestinal: non-tender, soft Musculoskeletal: nl extremities to inspection Extremities: normal pulses, other (no edema, clubbing or cyanosis ) Neurological: CHILDREN'S AUTHOR II-XII intact, confused (still ), focal weakness (deep left hemiparesis ) Results Result Diagram: 05/28/16 0450 Medications Medications Current Medications Acetaminophen (Tylenol Tab) 650 mg Q4H PRN PO Temp greater than 99.6F Last administered on 05/25/16 20:56; Admin Dose 650 MG; Start 05/13/16 at 16:30 Docusate Sodium (Colace) 100 mg BID PO Last administered on 05/29/16 08:25; Admin Dose 100 MG; Start 05/13/16 at 21:00 Ondansetron HCl (Zofran Inj) 4 mg Q6H PRN IV NAUSEA AND/OR VOMITING; Start at 16:30 Acetaminophen (Tylenol Tab) 650 mg Q6H PRN PO PAIN LEVEL 1-3 OR FEVER Last administered on 05/29/16 02:31; Admin Dose 650 MG; Start 05/13/16 at 16:30 Docusate Sodium (Colace) 100 mg Q12H PRN PO CONSTIPATION Last administered on 09:43; Admin Dose 100 MG; Start 05/13/16 at 16:30 Magnesium Hydroxide (Milk Of Mag) 30 ml DAILY PRN PO CONSTIPATION Last administered on 05/21/16 20:42; Admin Dose 30 ML; Start 05/13/16 at 16:30 Bisacodyl (Dulcolax Supp) 10 mg DAILY PRN IN CONSTIPATION Last administered on 05/28/16 06:23; Admin Dose 10 MG; Start 05/13/16 at 16:30 Salmeterol Xinafoate/ Fluticasone (Advair 250/50 Diskus) 1 inh BID INH Last administered on 05/29/16 08:25; Admin Dose 1 INH; Start 05/13/16 at 21:00 Atorvastatin Calcium (Lipitor) 80 mg QHS PO Last administered on 05/28/16 20:38 ; Admin Dose 80 MG; Start 05/14/16 at 21:00 Hydralazine HCl (Apresoline) 10 mg Q4H PRN IV ELEVATED BLOOD PRESSURE Last administered on 05/29/16 11:35; Admin Dose 10 MG; Start 05/14/16 at 22:30 Diltiazem HCl (Cardizem Iv) 10 mg Q1H PRN IV HR>120 Last administered on 14:56; Admin Dose 10 MG; Start 05/18/16 at 10:00 Diltiazem HCl (Cardizem Cd) 120 mg DAILY PO Last administered on 05/29/16 08:26 ; Admin Dose 120 MG; Start 05/23/16 at 09:00 Mineral Oil (Fleet Mineral Oil Enema) 133 ml DAILY PRN IN CONSTIPATION; Start 05/23/16 at 14:30 Apixaban (Eliquis) 5 mg BID PO Last administered on 05/29/16 08:25; Admin Dose 5 MG; Start 05/27/16 at 21:00 Famotidine (Pepcid) 20 mg Q12 PO Last administered on 05/29/16 08:25; Admin Dose 20 MG; Start 05/27/16 at 21:00 Amiodarone HCl (Cordarone) 100 mg DAILY PO Last administered on 05/29/16 08:27 ; Admin Dose 100 MG; Start 05/29/16 at 09:00 Hydralazine HCl (Apresoline) 25 mg TID PO ; Start 05/29/16 at 13:00 Losartan Potassium (Cozaar) 25 mg BID PO ; Start 05/29/16 at 13:00 NCIO BUCHANAN May 29, 2016 13:16
--- NOTE | 2016-05-29 13:59 | RADRPT ---
AMENDMENT: 05/29/2016 3:16:29 PM Kip Schmidt M.d Call report: Findings were called to Lexy Holt RN at 02:04 p.m. on 05/29/2016. PROCEDURE: CT brain without contrast CLINICAL INDICATION: Infarct, headache TECHNIQUE: CT of the brain without contrast performed on a multidetector CT scanner, with multiplan ar reformats. One or more of the following dose reduction techniques were used: Automated exposure control, adjustment in mA and / or kV according to patient size, use of iterative reconstructive víctor hnique. CTDIvol = 39 mGy; DLP = 634 mGy-cm. COMPARISON: 05/27/2016 FINDINGS: Redemonstrated is a recent/subacute but no cerebral artery territory infarct at the temporal, insula r, basal ganglia/internal capsule regions with edema extending into the frontoparietal regions, olaf lar in extent. Subtle very small area of hyperdensity most suggestive of hemorrhage is again seen i n the medial right temporal region which is slightly more pronounced and additional subtle areas are now seen in the right basal ganglia - castañeda radiata region also suggestive of hemorrhage. Mass effect appears slightly improved with decrease in effacement of the right lateral ventricle. T here is mild, approximately 3 mm leftward midline shift, without significant change. No hydrocephal us is identified. No extra-axial fluid collection is seen. Again noted is underlying mild generalized volume loss. Osseous structures are unremarkable. Mastoid air cells and imaged paranasal sinuses grossly clear. IMPRESSION: 1. Recent/subacute right middle cerebral artery territory infarct with subtle very small area of he morrhage slightly more pronounced in the right temporal region, with additional subtle areas also no w seen in the right basal ganglia - castañeda radiata region. 2. Slight improvement of mass effect, with stable mild leftward midline shift. RPTAT: VV .Kip Schmidt MD, MD Date Time Electronically viewed and signed by .Kip Schmidt MD, on 05/29/2016 15:17 .O/
[2016-05-29 14:25] LABS: ADD SCAN DIFF NO
[2016-05-29 14:27] LABS: BASOPHILS % 0.4 % (0.0-2.0); EOSINOPHILS % 0.2 % (0.0-7.0); HEMATOCRIT 42.6 % (42.0-52.0); HEMOGLOBIN 14.1 g/dl (14.0-18.0); LYMPHOCYTES # 0.7 10^3/ul (0.8-2.9); MEAN CORPUSCULAR HEMOGLOBIN 30.3 pg (29.0-33.0); MEAN CORPUSCULAR HGB CONC 33.1 g/dl (32.0-37.0); MEAN CORPUSCULAR VOLUME 91.4 fl (82.0-101.0); MEAN PLATELET VOLUME 9.2 fl (7.4-10.4); MONOCYTE # 0.5 10^3/ul (0.3-0.9); MONOCYTES % 4.7 % (0.0-11.0); NEUTROPHIL # 9.2 10^3/ul (1.6-7.5); NEUTROPHILS % 86.9 % (39.0-77.0); PLATELET COUNT 416 10^3/UL (140-415); RED BLOOD COUNT 4.66 10^6/ul (4.70-6.10); RED CELL DISTRIBUTION WIDTH 12.4 % (11.5-14.5); WHITE BLOOD COUNT 10.6 10^3/ul (4.8-10.8)
[2016-05-29] MEDS: ATORVASTATIN 40 MG TAB PO SCH (20:31)
[2016-05-30 05:39] LABS: ADD SCAN DIFF NO
[2016-05-30 05:50] LABS: BASOPHILS % 0.5 % (0.0-2.0); EOSINOPHILS # 0.2 10^3/ul (0.0-0.5); EOSINOPHILS % 2.2 % (0.0-7.0); HEMATOCRIT 41.4 % (42.0-52.0); HEMOGLOBIN 13.3 g/dl (14.0-18.0); LYMPHOCYTES # 1.8 10^3/ul (0.8-2.9); LYMPHOCYTES % 21.4 % (15.0-51.0); MEAN CORPUSCULAR HGB CONC 32.1 g/dl (32.0-37.0); MEAN CORPUSCULAR VOLUME 93.5 fl (82.0-101.0); MEAN PLATELET VOLUME 9.6 fl (7.4-10.4); MONOCYTE # 0.6 10^3/ul (0.3-0.9); MONOCYTES % 7.6 % (0.0-11.0); NEUTROPHIL # 5.7 10^3/ul (1.6-7.5); NEUTROPHILS % 67.6 % (39.0-77.0); PLATELET COUNT 392 10^3/UL (140-415); RED BLOOD COUNT 4.43 10^6/ul (4.70-6.10); WHITE BLOOD COUNT 8.5 10^3/ul (4.8-10.8)
[2016-05-30 06:14] LABS: POTASSIUM 4.1 mmol/L (3.5-5.1)
[2016-05-30 06:16] LABS: CREATININE 0.9 mg/dl (0.61-1.24)
[2016-05-30 06:17] LABS: CALCIUM 9.3 mg/dl (8.4-10.2)
[2016-05-30 07:49] VITALS: BP 115/63; RESP 18
[2016-05-30] MEDS ORDERED: ASPIRIN (EC) 81 MG TAB PO SCH (09:00)
--- NOTE | 2016-05-30 09:02 | PN ---
Date/Time of Note Date/Time of Note DATE: 05/30/16 TIME: 08:41 Assessment/Plan VTE Prophylaxis VTE Prophylaxis Intervention: SCD's Lines/Catheters IV Catheter Type (from Nrs): PICC Line Central line still needed: Yes (will d/c today ) Urinary Cath still in place: No Assessment/Plan Assessment/Plan 65-year-old male with: 1. 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 Paroxysmal A fib. Now on Med Surg. Stable but disabled, likely permanently given severe left hemiparesis from CVA MRI brain confirming Right MCA territory CVA Repeat CT head 05/29/[address] Emmanuel yesterday, recent/ subacute right middle cerebral artery territory infarct with subtle very small area of hemorrhage slightly more pronounced in the right temporal region, with additional subtle areas also now seen in the right basal ganglia - castañeda radiata region. Slight improvement of mass effect, with stable mild leftward midline shift. Dr Emmanuel recommends and agrees with discontinuing Eliquis for now and aim for SBP less then 140's which has the case overnight with current BP regimen. Resume ASA 81 mg today and Repeat CT head non contrast in 5 to 7 days and if stable ok to resume Eliquis at that time. this can be done as outpatient therefore patient can stil be discharged to SNF today if bed available Continue rate/rhythm control for A fib Aggressive PT/OT/ST to continue. 2. Paroxysmal Atrial Fibrillation: on Amiodarone and prn Cardizem. Has been in SR lately and episodes of bradycardia noted, agree with further decrease of Amio to 100 mg po daily done by Cardiology today 2D echo Ok, Dr Barrios following. Back on ASA per Neurology. See above #1 3. Hypertension. Elevated BP overnight and this AM despite prn Hydralazine given , add Cozaar and scheduled Hydralazine. Will titrate meds further up as needed. 4. Asthma. Continue inhaler and nebulizers prn. 5. Bilateral Superficial venous thrombosis of the basilic vein, at site of previous IV site, IVs were removed cold compress and elevation. Seems to be resolving clinically with resolved edema. Prophylaxis. S/p TPA. Pepcid for GI prophylaxis. On Eliquis DISPOSITION: On Med surg while awaiting and trying to solve issues regarding placement at SNF when bed available. Continuing PT/OT/ST aggressive with plans for SNF today after CT done as patient not qualifying for ARU. Family is appealing discharge and agree/ready to be financially responsible if lose appeal. Appreciate Neurology recommendations and Cardiology follow up. at bedside updated of plan of care and discharge planning for today Subjective 24 Hr Interval Summary Free Text/Dictation Patient doing better today with BP much better controlled CT head reviewed and discussed with Neurology and recommendations followed with discharged to SNF OK with Neurology today with outpatient Neurology follow up and repeat CT head within 1 week Exam/Review of Systems Vital Signs Vitals Vital Signs Date Time Temp Pulse Resp B/P Pulse Ox O2 Delivery O2 Flow Rate FiO2 05/30/16 07:49 98.1 74 18 115/63 97 Intake and Output 05/29/16 05/29/16 05/30/16 15:00 23:00 07:00 Intake Total 840 ml 120 ml Balance 840 ml 120 ml Exam Constitutional: alert, oriented (x2), other (awake ) Respiratory: clear to auscultation, normal air movement Cardiovascular: nl pulses, regular rate and rhythm Gastrointestinal: non-tender, soft Musculoskeletal: other (left hemiparesis ) Extremities: normal pulses, other (no edema, clubbing or cyanosis ) 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 (much improved facial rdroop ), focal weakness (left hemiparesis ), other (much more awake ) Results Result Diagram: 05/30/16 0511 05/30/16 0511 Results 24 hrs Laboratory Tests Test 05/29/16 14:20 05/30/16 05:11 Basophils # 0.0 0.0 Basophils % 0.4 0.5 Eosinophils # 0.0 0.2 Eosinophils % 0.2 2.2 Hematocrit 42.6 41.4 L Hemoglobin 14.1 13.3 L Lymphocytes # 0.7 L 1.8 Lymphocytes % 7.0 L 21.4 Mean Corpuscular Hemoglobin 30.3 30.0 Mean Corpuscular Hemoglobin Concent 33.1 32.1 Mean Corpuscular Volume 91.4 93.5 Mean Platelet Volume 9.2 9.6 Monocytes # 0.5 0.6 Monocytes % 4.7 7.6 Neutrophils # 9.2 H 5.7 Neutrophils % 86.9 H 67.6 Nucleated Red Blood Cells # 0.0 0.0 Nucleated Red Blood Cells % 0.0 0.0 Platelet Count 416 #H 392 Red Blood Count 4.66 L 4.43 L Red Cell Distribution Width 12.4 13.0 White Blood Count 10.6 8.5 Anion Gap 19 H Blood Urea Nitrogen 14 Calcium Level 9.3 Carbon Dioxide Level 27 Chloride Level 100 Creatinine 0.90 Glucose Level 123 Potassium Level 4.1 Sodium Level 142 Medications Medications Current Medications Acetaminophen (Tylenol Tab) 650 mg Q4H PRN PO Temp greater than 99.6F Last administered on 05/25/16 20:56; Admin Dose 650 MG; Start 05/13/16 at 16:30 Docusate Sodium (Colace) 100 mg BID PO Last administered on 05/29/16 20:31; Admin Dose 100 MG; Start 05/13/16 at 21:00 Ondansetron HCl (Zofran Inj) 4 mg Q6H PRN IV NAUSEA AND/OR VOMITING; Start at 16:30 Acetaminophen (Tylenol Tab) 650 mg Q6H PRN PO PAIN LEVEL 1-3 OR FEVER Last administered on 05/29/16 21:59; Admin Dose 650 MG; Start 05/13/16 at 16:30 Docusate Sodium (Colace) 100 mg Q12H PRN PO CONSTIPATION Last administered on 09:43; Admin Dose 100 MG; Start 05/13/16 at 16:30 Magnesium Hydroxide (Milk Of Mag) 30 ml DAILY PRN PO CONSTIPATION Last administered on 05/21/16 20:42; Admin Dose 30 ML; Start 05/13/16 at 16:30 Bisacodyl (Dulcolax Supp) 10 mg DAILY PRN [place] CONSTIPATION Last administered on 05/28/16 06:23; Admin Dose 10 MG; Start 05/13/16 at 16:30 Salmeterol Xinafoate/ Fluticasone (Advair 250/50 Diskus) 1 inh BID INH Last administered on 05/29/16 20:30; Admin Dose 1 INH; Start 05/13/16 at 21:00 Atorvastatin Calcium (Lipitor) 80 mg QHS PO Last administered on 05/29/16 20:31 ; Admin Dose 80 MG; Start 05/14/16 at 21:00 Hydralazine HCl (Apresoline) 10 mg Q4H PRN IV ELEVATED BLOOD PRESSURE Last administered on 05/29/16 11:35; Admin Dose 10 MG; Start 05/14/16 at 22:30 Diltiazem HCl (Cardizem Iv) 10 mg Q1H PRN IV HR>120 Last administered on 14:56; Admin Dose 10 MG; Start 05/18/16 at 10:00 Diltiazem HCl (Cardizem Cd) 120 mg DAILY PO Last administered on 05/29/16 08:26 ; Admin Dose 120 MG; Start 05/23/16 at 09:00 Mineral Oil (Fleet Mineral Oil Enema) 133 ml DAILY PRN [place] CONSTIPATION; Start 05/23/16 at 14:30 Famotidine (Pepcid) 20 mg Q12 PO Last administered on 05/29/16 20:31; Admin Dose 20 MG; Start 05/27/16 at 21:00 Amiodarone HCl (Cordarone) 100 mg DAILY PO Last administered on 05/29/16 08:27 ; Admin Dose 100 MG; Start 05/29/16 at 09:00 Losartan Potassium (Cozaar) 25 mg BID PO Last administered on 05/29/16 20:31; Admin Dose 25 MG; Start 05/29/16 at 13:00 Hydralazine HCl (Apresoline) 25 mg Q8 PRN PO ELEVATED BLOOD PRESSURE Last administered on 05/29/16 21:58; Admin Dose 25 MG; Start 05/29/16 at 17:00 Aspirin (Halfprin) 81 mg DAILY PO ; Start 05/30/16 at 09:00 NICO BUCHANAN May 30, 2016 08:51
--- NOTE | 2016-05-30 09:08 | PDOCDIS ---
Discharge Instructions CONDITION Patient Condition: Stable HOME CARE INSTRUCTIONS: Diet Instructions: Reduced SodiumSpecial Diet: Mechanical Soft diet ACTIVITY: Activity Restrictions: Slowly Increase Activity FOLLOW UP/APPOINTMENTS Appointments Follow up with Neurology, Dr Tong in 1 to [address] head non contrast in 1 week on 06/04/16 to follow up Acute CVA with small hemorrhagic conversion with results sent to Neurology NICO Dhillon May 30, 2016 09:08
[2016-05-30] MEDS: FAMOTIDINE 20 MG TAB PO SCH ×2 (09:31→21:33)
[2016-05-30] MEDS: DOCUSATE SODIUM 100 MG CAP PO SCH ×2 (09:31→21:33)
[2016-05-30] MEDS: AMIODARONE 200 MG TAB PO SCH (09:32)
[2016-05-30] MEDS: LOSARTAN 25 MG TAB PO SCH ×2 (09:34→21:34)
[2016-05-30] MEDS: SALMETEROL/FLUTICASONE 250/50 INHA INH SCH ×2 (09:40→21:34)
[2016-05-30] MEDS: DILTIAZEM (CD) 120 MG CAP PO SCH (11:10)
--- NOTE | 2016-05-30 11:15 | CONS ---
Date/Time of Note Date/Time of Note DATE: 05/30/16 TIME: 11:13 Assessment/Plan Assessment/Plan Additional Assessment/Plan Right MCA CVA Paroxysmal atrial fibrillation, currently sinus rhythm Preserved ejection fraction Hypertension Dyslipidemia Superficial thrombus left upper extremity -Patient with repeat CT scan with possible evidence of hemorrhagic conversion, anticoagulation stopped. Patient remains in regular rhythm, continue amiodarone and Cardizem. Restart anticoagulation when okay by our neurology colleagues. Consultation Date/Type/Reason Admit Date/Time May 13, 2016 at 16:42 Initial Consult Date 05/14/16 Type of Consultation: cv Referring Provider: NICO BUCHANAN 24 HR Interval Summary Free Text/Dictation Patient denies shortness of breath, chest pain or palpitations Exam/Review of Systems Vital Signs Vitals Vital Signs Date Time Temp Pulse Resp B/P Pulse Ox O2 Delivery O2 Flow Rate FiO2 05/30/16 07:49 98.1 74 18 115/63 97 Intake and Output 05/29/16 05/29/16 05/30/16 15:00 23:00 07:00 Intake Total 840 ml 120 ml Balance 840 ml 120 ml Exam Follows commands, no apparent distress Constitutional: alert Head: normocephalic Neck: supple Respiratory: clear to auscultation, normal air movement Cardiovascular: other (S1-S2 heard), regular rate and rhythm Gastrointestinal: bowel sounds, non-tender, other (No guarding), soft Extremities: edema (Trace) Results Result Diagram: 05/30/16 0511 05/30/16 0511 Results 24 hrs Laboratory Tests Test 05/29/16 14:20 05/30/16 05:11 Basophils # 0.0 0.0 Basophils % 0.4 0.5 Eosinophils # 0.0 0.2 Eosinophils % 0.2 2.2 Hematocrit 42.6 41.4 L Hemoglobin 14.1 13.3 L Lymphocytes # 0.7 L 1.8 Lymphocytes % 7.0 L 21.4 Mean Corpuscular Hemoglobin 30.3 30.0 Mean Corpuscular Hemoglobin Concent 33.1 32.1 Mean Corpuscular Volume 91.4 93.5 Mean Platelet Volume 9.2 9.6 Monocytes # 0.5 0.6 Monocytes % 4.7 7.6 Neutrophils # 9.2 H 5.7 Neutrophils % 86.9 H 67.6 Nucleated Red Blood Cells # 0.0 0.0 Nucleated Red Blood Cells % 0.0 0.0 Platelet Count 416 #H 392 Red Blood Count 4.66 L 4.43 L Red Cell Distribution Width 12.4 13.0 White Blood Count 10.6 8.5 Anion Gap 19 H Blood Urea Nitrogen 14 Calcium Level 9.3 Carbon Dioxide Level 27 Chloride Level 100 Creatinine 0.90 Glucose Level 123 Potassium Level 4.1 Sodium Level 142 Medications Medications Current Medications Acetaminophen (Tylenol Tab) 650 mg Q4H PRN PO Temp greater than 99.6F Last administered on 05/25/16 20:56; Admin Dose 650 MG; Start 05/13/16 at 16:30 Docusate Sodium (Colace) 100 mg BID PO Last administered on 05/30/16 09:31; Admin Dose 100 MG; Start 05/13/16 at 21:00 Ondansetron HCl (Zofran Inj) 4 mg Q6H PRN IV NAUSEA AND/OR VOMITING; Start at 16:30 Acetaminophen (Tylenol Tab) 650 mg Q6H PRN PO PAIN LEVEL 1-3 OR FEVER Last administered on 05/29/16 21:59; Admin Dose 650 MG; Start 05/13/16 at 16:30 Docusate Sodium (Colace) 100 mg Q12H PRN PO CONSTIPATION Last administered on 09:43; Admin Dose 100 MG; Start 05/13/16 at 16:30 Magnesium Hydroxide (Milk Of Mag) 30 ml DAILY PRN PO CONSTIPATION Last administered on 05/21/16 20:42; Admin Dose 30 ML; Start 05/13/16 at 16:30 Bisacodyl (Dulcolax Supp) 10 mg DAILY PRN [place] CONSTIPATION Last administered on 05/28/16 06:23; Admin Dose 10 MG; Start 05/13/16 at 16:30 Salmeterol Xinafoate/ Fluticasone (Advair 250/50 Diskus) 1 inh BID INH Last administered on 05/30/16 09:40; Admin Dose 1 INH; Start 05/13/16 at 21:00 Atorvastatin Calcium (Lipitor) 80 mg QHS PO Last administered on 05/29/16 20:31 ; Admin Dose 80 MG; Start 05/14/16 at 21:00 Hydralazine HCl (Apresoline) 10 mg Q4H PRN IV ELEVATED BLOOD PRESSURE Last administered on 05/29/16 11:35; Admin Dose 10 MG; Start 05/14/16 at 22:30 Diltiazem HCl (Cardizem Iv) 10 mg Q1H PRN IV HR>120 Last administered on 14:56; Admin Dose 10 MG; Start 05/18/16 at 10:00 Diltiazem HCl (Cardizem Cd) 120 mg DAILY PO Last administered on 05/29/16 08:26 ; Admin Dose 120 MG; Start 05/23/16 at 09:00 Mineral Oil (Fleet Mineral Oil Enema) 133 ml DAILY PRN [place] CONSTIPATION; Start 05/23/16 at 14:30 Famotidine (Pepcid) 20 mg Q12 PO Last administered on 05/30/16 09:31; Admin Dose 20 MG; Start 05/27/16 at 21:00 Amiodarone HCl (Cordarone) 100 mg DAILY PO Last administered on 05/30/16 09:32 ; Admin Dose 100 MG; Start 05/29/16 at 09:00 Losartan Potassium (Cozaar) 25 mg BID PO Last administered on 05/30/16 09:34; Admin Dose 25 MG; Start 05/29/16 at 13:00 Hydralazine HCl (Apresoline) 25 mg Q8 PRN PO ELEVATED BLOOD PRESSURE Last administered on 05/29/16 21:58; Admin Dose 25 MG; Start 05/29/16 at 17:00 Aspirin (Halfprin) 81 mg DAILY PO Last administered on 05/30/16 09:31; Admin Dose 81 MG; Start 05/30/16 at 09:00 Angel Barrios DO May 30, 2016 11:15
[2016-05-30 19:35] VITALS: BP 124/69; RESP 20
[2016-05-30] MEDS: ATORVASTATIN 40 MG TAB PO SCH (21:33)
== END 2016-05-30 21:45 | DRG 61 ==
LOC: E/R 14:11 → ICU 16:42 → TEL 05-18 00:48 → MS2 05-26 18:30
PROVIDERS: ADMIT Internal Medicine; ATTEND Internal Medicine
PROC: 3E03317 Introduction of Other Thrombolytic into Peripheral Vein, Percutaneous Approach (ICD-10-PCS; principal; 2016-05-13)
PROC: 02HV33Z Insertion of Infusion Device into Superior Vena Cava, Percutaneous Approach (ICD-10-PCS; 2016-05-17)
DX: I63.511 Cerebral infarction due to unspecified occlusion or stenosis of right middle cerebral artery (principal); I61.9 Nontraumatic intracerebral hemorrhage, unspecified; G81.94 Hemiplegia, unspecified affecting left nondominant side; R47.01 Aphasia; I82.613 Acute embolism and thrombosis of superficial veins of upper extremity, bilateral; H53.462 Homonymous bilateral field defects, left side; I48.0 Paroxysmal atrial fibrillation; I10 Essential (primary) hypertension; J44.9 Chronic obstructive pulmonary disease, unspecified; R47.02 Dysphasia; E78.5 Hyperlipidemia, unspecified; R29.810 Facial weakness; R82.71 Bacteriuria; J45.909 Unspecified asthma, uncomplicated; Z87.891 Personal history of nicotine dependence
CPT/HCPCS: 36415; 36569; 70450; 70496; 70498; 70551; 71010; 76937; 80048; 80053; 80061; 80307; 82962; 83036; 83735; 84100; 84439; 84443; 84484; 85025; 85610; 85730; 87081; 87086; 92507; 92523; 92526; 92610; 93005; 93306; 93971; 96374; 96375; 97110; 97162; 97167; 97530; C1769; J0282; J0360; J1650; J3475; J3480; J7070; Q9967